=== PATIENT | male | born 1930 | race Caucasian/White ===

== ENCOUNTER 2018-01-16 13:00 | Inpatient (IN) ==
[2018-01-16 16:02] VITALS: BMI 22.1
[2018-01-16] MEDS ORDERED: BISACODYL 10 MG SUPPOSITORY RECTALLY PRN (16:22)
[2018-01-16] MEDS ORDERED: ACETAMINOPHEN 325 MG TABLET PO PRN (16:22)
[2018-01-16] MEDS ORDERED: SENNOSIDES 8.6 MG TABLET PO PRN (16:24)
[2018-01-16] MEDS ORDERED: Oxycodone *IR* 5 MG TABLET PO PRN (16:24)
[2018-01-16] MEDS ORDERED: WARFARIN - PHARMACY CONSULT MC ONE ×2 (16:27→17:00)
--- NOTE | 2018-01-16 16:47 | IRU History & Physical Report ---
HPI IRU Date: Date: 01/16/18 Time: 1643 Chief complaint: My legs don't work right HPI: Mr. Melendez is a very pleasant 87-year-old gentleman from [place], [place]. Referring physician is Gisela Choe MD. His primary care doctor is Panfilo Villa MD in [place]. The patient has a very extensive cardiac history having undergone his first pacemaker placement in 2008. He had an implantable defibrillator placed then in 2010 with replacement in 2016. In 2016 he did not have the lead replaced and the Guzman started to wear out. Therefore it was recommended that he undergo lead placement as well as new generator which was performed in [place] by Dr. Choe on 01/10/2018. Between his defibrillator placement in 2016 and the current placement, he underwent AV leonardo ablation. (Previous cardiac history indicates myocardial infarction and stent placement number of years ago.) He had stopped his Coumadin in preparation for the current lead placement and AICD generator placement on January 10. Procedure went fine according to the patient. He then went home to live with his daughter in [place]. A couple days later he developed extreme weakness and lethargy. According to his family he was not confused. In addition there was no report of any weakness in the left side although his left leg was painful. He was quite sleepy. Etiology of his sleepiness was not clear. He developed recurrent nausea and vomiting. He presented to the emergency department at [facility] on 01/13/2018 for evaluation of the weakness and nausea and vomiting. At that time his BUN was elevated at 101 and his creatinine was 2.3. I am not certain what his baseline creatinine is although on an emergency room visit in November 2017 his creatinine was 2.6. He was transferred back to [facility] for admission. He was noted to have a significant hematoma involving the left chest area surrounding the defibrillator. This was noted prior to his visit to the emergency room at this time. His blood pressure was low at around 97 systolic by EMS and was 107 systolic in the emergency department on 01/13/2018. He was quite weak. There is report of transient left facial droop noted on records from [place]. However the family is not aware of that. His left arm has been in a sling so it was difficult to determine if the left arm was weak or not. Patient and family denied any particular weakness in the left leg but did report pain in the leg. He also had reported some burning on urination. His white count was initially 14,000 in the emergency department here on 2017. Blood sugar was 303 and BUN was 101. There was a large hematoma with ecchymoses surrounding the pacemaker site. He also had a 1 cm area of superficial skin blistering just distal and lateral to that area. It is noted that the patient been on warfarin prior to the pacemaker generator change but had stopped taking it on 01/08/2018 prior to the operation. It has since been restarted. His normal dose is 2 mg, 2 mg, 3 mg on a three-day rotating cycle. The patient was reportedly confused at the time of admission to [facility] (family denies this). His heart rate was irregular and sodium was 133. CT head was negative for acute infarct. Chest x-ray showed some bibasilar opacities and cardiomegaly. Initially there was suspicion of TIA but subsequently encephalopathy and left-sided weakness resolved. His anticoagulation and a statin was restarted. He did note some degree of swallowing difficulty and PT, OT and speech therapy were consulted. He was able to be started on a regular diet with nectar thickened liquids. Studies done in [place] at this time include the chest x-ray on 01/14/2018 showed patchy bibasilar opacities likely representing atelectasis. CT head of demonstrate no acute findings. Ultrasound of carotids on 01/14/2018 demonstrated mild to moderate atherosclerosis without hemodynamically significant stenosis. A swallow function study was done on 01/15/2018 with aspiration occurring with thin preparations of barium. Oropharyngeal dysphagia was diagnosed and nectar thickened liquids were recommended. Prior to this he was relatively independent living on [place] acres in the [place] area. He did his own mowing. He did ambulate with a front-wheeled walker or single-point cane. Recently he had not been driving because of recent cataract surgery. He was otherwise independent with ADLs and all of his self-care. His daughter assisted with driving and assisted with grocery shopping. At the present time the patient plans to move into [facility] independent living in [place] following dismissal from acute inpatient rehabilitation. The new home has one level and no steps to enter. He lives alone with his having in 1980. He does have history of diabetes mellitus with elevated blood sugars as identified above. He checks his blood sugars at home twice weekly. He does not use insulin and is on Januvia only. It is not certain if he has had hypoglycemic episodes or not. His last known A1c is 8.2% in January 2018. Current level of functioning indicates that he is modified independent for eating but requires supervision for grooming. He would continues to require moderate assistance for bathing and upper body dressing but maximum assistance for lower body dressing. He requires maximum assistance for bed/chair/ wheelchair transfers and toilet transfers. He is currently not able to ambulate significantly. He does wear a sling in the left arm and the arm is to remain in the sling even while in bed. The patient has requested no heroic actions be undertaken in the event of an arrest. This was confirmed with the patient and family present today. The following medical conditions are noted and require active monitoring and/or management: 1. 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 He underwent diuresis in November and has continued to have evidence of severe weakness. His proximal muscles appear to be weaker than his distal muscles in his lower extremity. He reports that his legs are weak and do not do what he wants them to do. 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 2. Congestive heart failure. He reportedly has systolic heart failure but I do not have a current ejection fraction. There is verbal report of ejection fraction of 10%. 3. Diabetes mellitus type 2, not recently controlled. He is on oral agents only. 4. Chronic kidney disease stage IV. Recent creatinines have ranged from 2.3-2.6. 5. Dysphagia: Oropharyngeal and location based on swallow study in [place]. He is now on nectar thickened liquids but regular consistency food. 6. Coronary artery disease, status post stent placement. He has had 2 stents placed previously and previous myocardial infarction. 7. Atrial fibrillation. He is status post AV leonardo ablation. 8. Hypertension: His blood pressure had been low prior to this. The following therapies will be needed: 1. Physical therapy: for transfers and ambulation and stairs. 2. Occupational therapy: for ADL's and transfers. 3. Speech therapy: dysphagia 3. Medical management: for the above conditions. 4. 24 hour Rehabilitation Nursing to monitor and address the following: Blood sugars, blood pressures, neurologic status and cardiac status in view of his atrial fibrillation and congestive heart failure. 5. Dietitian: To monitor and insure adequate intake. [facility] Patient Stated Medical History Cataracts Yes Cardiac Arrhythmia Yes: A-FIB Congestive Heart Failure Yes: 10% EF Hypertension Yes Myocardial Infarction Yes Diabetes Mellitus Type 2 Yes Constipation No Gastroesophageal Reflux Yes Disease Hx Incontinence No Hx Renal Disease Yes: STAGE IV Clotting Problems Yes: ON COUMADIN Medical History Updates: 1. Systolic heart failure with reported ejection fraction 10%. 2. Benign essential hypertension. 3. Atherosclerotic heart disease status post myocardial infarction. 4. Diabetes mellitus type 2 not on senior care insulin, with vascular complications of heart disease. 5. GERD. 6. Chronic kidney disease stage IV. 7. Coagulopathy secondary to use of Coumadin. 8. Gout. 9. Prostate cancer Surgical History: 1. Cardiac stent placement after myocardial infarction early 2005. 2. Permanent pacemaker placement 2008, revision and AICD placement 2010, revision and new AICD placement 2016, new AICD and lead placement 2017. 3. AV ablation 2016. 4. Bilateral cataract procedure. 5. Cervical and lumbar spine surgery. 6. Appendectomy. 7. Tonsillectomy. 8. Umbilical hernia repair. 9. Right total shoulder replacement. 10. Left total knee replacement Family History: Patient's father of "heart failure" age 55. Mother of scarlet fever age 31. - Social History Smoking status: Former smoker Packs per day: 2 (started smoking at age 10 and stopped at age 57 with most recent usage 2 packs daily) Packs-years: 80 Substance use type: does not use Alcohol intake: former (occasional mixed drinks in the past. Last intake 2001) Alcohol intake frequency: does not drink Housing: house Household members: none Current occupational status: retired Current residence: Apartment/Private Home Social history: Patient's in 1980. He has lived alone in [facility]. 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 He is planning to move into an independent living apartment in [place] after dismissal from rehabilitation. Review of Systems - Constitutional Constitutional: Present: weight gain (had gained quite a few pounds of weight in November and then was diuresed. Has again gained some. He believes his dry weight is 147 pounds. Current weight is about 158 pounds.). Absent: anorexia, chills, fatigue, fever(s), headache(s), lethargy, malaise, night sweats, weakness - EENMT Eyes: Absent: blurry vision, change in vision, diplopia Mouth/Throat: Absent: changes in swallowing, painful swallowing, change in taste , bleeding gums, change in voice - Cardiovascular Cardiovascular: Present: dyspnea on exertion (shortness of breath is improved since most recent AICD placement). Absent: chest pain, palpitations, syncope, orthopnea, edema, cyanosis, heart murmur Rhythm: Present: abnormal rhythm Vascular: Absent: intermittent claudication, pedal edema, unilateral swelling - Respiratory Respiratory: Present: dyspnea, dyspnea on exertion. Absent: cough, hemoptysis, wheezing, pain on inspiration, chest congestion, excessive phlegm production - Gastrointestinal Gastrointestinal: Present: dyspepsia, dysphagia (oropharyngeal dysphagia). Absent: abdominal pain, change in bowel habits, constipation, diarrhea, early satiety, hematochezia, melena, nausea, vomiting - Musculoskeletal Musculoskeletal: Present: muscle weakness (patient reports bilateral lower extremity weakness). Absent: abnormal gait, arthralgias, back pain, joint swelling, limited range of motion - Integumentary/Breasts Integumentary: Absent: alopecia, erythema, lesions, pruritus, rash, jaundice - Neurological Neurological: Present: weakness. Absent: abnormal gait, abnormal movements, abnormal speech, confusion, convulsions, dizziness, focal weakness, frequent falls, headache(s), loss of vision, memory loss, numbness, paresthesias, tremor( s) - Psychiatric Psychiatric: Absent: abnormal sleep pattern, anxiety, depression - Endocrine Endocrine: Absent: cold intolerance, flushing, heat intolerance, palpitations - Hematologic/Lymphatic Hematologic/Lymphatic: Absent: easy bleeding, easy bruising, lymphadenopathy - Allergic/Immunologic Allergic/Immunologic: Absent: urticaria Medications Home Medications Medication Instructions Recorded Confirmed Type Amiodarone [Pacerone] 200 mg PO BID 11/19/17 01/16/18 History Bumetanide [Bumetanide] 2 mg PO BID 11/19/17 01/16/18 History Omeprazole [Prilosec] 20 mg PO DAILY 11/19/17 01/16/18 History Potassium Chloride [MICRO-K 10 mEq 20 meq PO BIDWM 11/19/17 01/16/18 History Capsule] Sitagliptin [Januvia] 50 mg PO DAILY 11/19/17 01/16/18 History Sennosides 8.6 mg PO BID PRN 01/13/18 01/16/18 History Warfarin [Coumadin] 2 mg PO . DIRECTED 01/13/18 01/16/18 History Warfarin [Coumadin] 3 mg PO Q3D 01/13/18 01/16/18 History Acetaminophen 650 mg PO Q4HR PRN 01/16/18 01/16/18 History Atorvastatin [Lipitor] 1 tab PO HS 01/16/18 01/16/18 History Bisacodyl Supp [Dulcolax] 10 mg RECTALLY Q6HR PRN 01/16/18 01/16/18 History Calcium Carb/Vit D3/Minerals 1 each PO DAILY 01/16/18 01/16/18 History [Calcium 600+D Plus Minerals Tb] Carvedilol [Coreg] 1 tab PO BIDWM 01/16/18 01/16/18 History CephALEXin [Keflex 500 mg] 500 mg PO Q6HR 01/16/18 01/16/18 History Docusate Sodium [Colace] 1 cap PO DAILY 01/16/18 01/16/18 History Doxepin [Sinequan] 10 mg PO HS 01/16/18 01/16/18 History Febuxostat [Uloric] 40 mg PO DAILY 01/16/18 01/16/18 History Folic Acid 0.8 mg PO DAILY 01/16/18 01/16/18 History Ondansetron [Zofran Odt] 1 tab PO Q4HR PRN 01/16/18 01/16/18 History Oxycodone HCl 5 mg PO Q6HR PRN 01/16/18 01/16/18 History PredniSONE [Deltasone 10 mg] 10 mg PO WB 01/16/18 01/16/18 History Allergies Allergy/AdvReac Type Severity Reaction Status Date / Time finasteride Allergy Intermediate Rash Verified 01/13/18 15:42 hydromorphone [From Dilaudid] AdvReac Severe combative Verified 01/13/18 15:52 nitrofurantoin AdvReac Severe Nausea and Verified 01/13/18 15:42 [From Macrobid] Vomiting Results IRU - Labs Labs: Have reviewed results from [facility] as well as what data we have here from [place]. Exam Vital Signs: Temperature 97.9 F 01/16/18 15:41 Pulse Rate 60 01/16/18 15:41 Respiratory Rate 18 01/16/18 15:41 Blood Pressure 133/71 01/16/18 15:41 Pulse Oximetry 97 01/16/18 15:41 Height/Weight/BMI: Height 1.8 m Weight 72.1 kg Body Mass Index 22.1 - Constitutional Present: no acute distress, well nourished, well developed, average body habitus , cooperative - Routine HEENT Exam Head: Present: normocephalic, atraumatic. Absent: cushingoid faces, abrasion, laceration, hematoma Eye: Present: EOMI, PERRL (pupils are small bilaterally.). Absent: conjunctival icterus, scleral injection, periorbital swelling, nystagmus ENT: Present: mucous membranes moist, oropharynx clear. Absent: dentition normal (patient has upper and lower partial plates) Comments: Bilateral arcus senilis - Routine Neck Exam Present: supple, full ROM, trachea midline. Absent: lymphadenopathy, thyromegaly, tenderness, swelling - Routine Chest/Breast/Axilla Exam Chest wall: Present: pacemaker. Absent: tenderness Axillae: Absent: lymphadenopathy, mass Comments: Patient has a very large but soft hematoma overlying the left chest pacemaker/ defibrillator. No active infection, no warmth and minimal tenderness noted. - Routine Respiratory Exam Present: decreased breath sounds, CTA bilaterally. Absent: accessory muscle use , prolonged expiratory phase, rales, respiratory distress, rhonchi, stridor, wheezes, crackles, distant breath sounds - Routine Cardiovascular Exam Present: S1, S2, murmur, irregularly irregular. Absent: gallop, S3, S4, click, irregular rhythm - Routine Abdominal Exam Present: soft, normoactive bowel sounds, non distended, non tender. Absent: rebound, guarding, firm, rigid, organomegaly, mass, hernia, wound - Routine Extremities Exam Present: no edema, non tender, normal capillary refill. Absent: cyanosis, clubbing, pulses intact Comments: Bilateral chronic venous stasis changes noted in the lower extremities - Routine Back/Spine/Pelvis Exam Back/Spine: Present: kyphosis. Absent: full ROM, scoliosis - Routine Skin Exam Present: intact, dry, warm, ecchymosis. Absent: cyanosis, erythema, pallor, mottling, petechiae, urticaria, lesions, jaundice Comments: Large hematoma left chest as described above - Routine Neurological Exam Present: alert, oriented X3, CN II-XII intact, motor deficit (patient appears to have proximal muscle weakness in his lower extremities worse than distal weakness.), moving all extremities, normal speech - Routine Psychiatric Exam Present: normal affect, normal thought process, cooperative, good insight, good judgment. Absent: depressed, anxious Sepsis Assessment - Evaluation Severe Sepsis: none seen IRU A/P (1) Myopathy Current visit: Yes Status: Acute The patient requires maximum assistance for transfers. He has evidence of proximal muscle weakness. He is severely reduced ejection fraction reportedly at 10%. The patient has evidence of CHF related myopathy. He will require a multidisciplinary approach for his recovery. (2) Debility Current visit: Yes Status: Acute (3) Atrial fibrillation Qualifiers: Atrial fibrillation type: permanent Qualified Code(s): I48.2 - Chronic atrial fibrillation Current visit: Yes Status: Acute He is status post AV leonardo ablation and has a permanent pacemaker in place. He is on warfarin. His INR will be managed by the pharmacy. (4) Systolic heart failure Qualifiers: Heart failure chronicity: acute on chronic Qualified Code(s): I50.23 - Acute on chronic systolic (congestive) heart failure Current visit: Yes Status: Acute His weight is up but 158 pounds compared to his "dry weight" reportedly at 147 pounds according to the family. He is on Bumex twice daily. He has cardiomegaly. We will continue the diuresis. (5) Benign essential hypertension Current visit: Yes Status: Chronic (6) Diabetes mellitus type II, uncontrolled Qualifiers: Diabetes mellitus intermediate project manager insulin use: without intermediate project manager use Diabetes mellitus complication status: with circulatory complication Diabetes mellitus complication detail: with other circulatory complications Qualified Code(s): E11.59 - Type 2 diabetes mellitus with other circulatory complications; E11.65 - Type 2 diabetes mellitus with hyperglycemia Current visit: Yes Status: Chronic Patient's A1c is elevated at over 8%. He checks his sugars twice weekly. He has had circulatory complications in terms of vascular disease with his atherosclerotic heart disease. Efforts will be undertaken to safely control his blood sugars. (7) Arteriosclerotic heart disease (ASHD) Current visit: Yes Status: Chronic DVT Prophylaxis: SCD's, Coumadin GI Prophylaxis: Omeprazole Resuscitation Status: Do Not Resuscitate - Course Hospital Course: Ulysses Peoples MD: - Interventions to Obtain Goals Goals Progress/Modifications: This medically complex patient has had a recent decline in his functional status. This is likely related to his underlying severe congestive heart failure with resultant CHF myopathy. The patient has diabetes mellitus, atrial fibrillation on warfarin, a large hematoma involving the left chest wall, recent AICD placement as well as recent hypotension. He requires a multidisciplinary approach to his recovery.
--- NOTE | 2018-01-16 17:10 | Pharmacy Consult ---
Pharmacy Consult-Warfarin - Laboratory Information 01/16/18 16:45 INR 1.08 - Consult Information Target INR for afib is 2-3. Warfarin 3mg po is ordered for tonight. Will continue to monitor. Thank you.
--- NOTE | 2018-01-16 17:25 | IRU 24Hr Post Admit Eval ---
24 Hr Post Admission Physical - Relevant Changes Relevant Changes: Yes (after assessment on acute inpatient rehabilitation it appears as though his lower extremity weakness is likely related to a CHF related myopathy rather than a generalized debility.) Reviewed: I have reviewed the patient's information and concur with the finding and results of the pre-admission screen. Certification: I certify the patient for rehabilitation. - Patient Condition (1) Myopathy Status: Acute Code(s): G72.9 - Myopathy, unspecified Classification: Present on IRF Admission, IRF Tx That Should Address Diagnosis, Diagnosis Requiring Medical Follow Up (2) Debility Status: Acute Code(s): R53.81 - Other malaise Classification: Present on IRF Admission, IRF Tx That Should Address Diagnosis (3) Atrial fibrillation Status: Acute Qualifiers: Atrial fibrillation type: permanent Qualified Code(s): I48.2 - Chronic atrial fibrillation Code(s): I48.91 - Unspecified atrial fibrillation Classification: Present on IRF Admission, IRF Tx That Should Address Diagnosis, Diagnosis Requiring Medical Follow Up (4) Systolic heart failure Status: Acute Qualifiers: Heart failure chronicity: acute on chronic Qualified Code(s): I50.23 - Acute on chronic systolic (congestive) heart failure Code(s): I50.20 - Unspecified systolic (congestive) heart failure Classification: Present on IRF Admission, IRF Tx That Should Address Diagnosis, Diagnosis Requiring Medical Follow Up (5) Benign essential hypertension Status: Chronic Code(s): I10 - Essential (primary) hypertension Classification: Present on IRF Admission, IRF Tx That Should Address Diagnosis, Diagnosis Requiring Medical Follow Up (6) Diabetes mellitus type II, uncontrolled Status: Chronic Qualifiers: Diabetes mellitus terminal worker insulin use: without terminal worker use Diabetes mellitus complication status: with circulatory complication Diabetes mellitus complication detail: with other circulatory complications Qualified Code(s): E11.59 - Type 2 diabetes mellitus with other circulatory complications; E11.65 - Type 2 diabetes mellitus with hyperglycemia Code(s): E11.65 - Type 2 diabetes mellitus with hyperglycemia Classification: Present on IRF Admission, IRF Tx That Should Address Diagnosis, Diagnosis Requiring Medical Follow Up (7) Arteriosclerotic heart disease (ASHD) Status: Chronic Code(s): I25.10 - Atherosclerotic heart disease of [place] coronary artery without angina pectoris Classification: Present on IRF Admission, IRF Tx That Should Address Diagnosis, Diagnosis Requiring Medical Follow Up - Prior Functional Status Lives With: Alone Residence Type: Apartment/Private Home Assitive Devices: Front Wheeled Walker Prior Functional Status: Indep. at home or school, Depend. w/ IADL - Current Functional Status Current Level of Function: Current level of functioning indicates that he is modified independent for eating but requires supervision for grooming. He would continues to require moderate assistance for bathing and upper body dressing but maximum assistance for lower body dressing. He requires maximum assistance for bed/chair/ wheelchair transfers and toilet transfers. He is currently not able to ambulate significantly. He does wear a sling in the left arm and the arm is to remain in the sling even while in bed. Failed Alternative Therapy: Arrived from Acute Care Patient Requirements: The patient requires oversight by rehabilitation physician to manage their rehabilitation treatment plan and multidisciplinary approach to care that can only be provided in an IRF and requires a multidisciplinary approach to care, provided by professional PTs, OTs, STs, dieticians, RTs, rehabilitation nurses and is not available in lesser levels of care. Limitations Req: Mobility Impairment, ADL Impairment Therapy: The patient is to receive therapy at least 5 days a week. Plan of Care Comment: 1. Speech therapy for dysphagia/swallowing 30 minutes daily 5 days weekly. 2. Physical therapy: 75 minutes daily 5 days weekly. 3. Occupational therapy: 75 minutes daily 5 days weekly ROM Deficit: Left Upper Extremity - Complications/Comorbidities Impact on Functional Outcomes: The patient severe debilitation and myopathy as well as his reduced ejection fraction will negatively impact his functional outcome Barriers to Discharge: Weakness, Endurance, Medical Limitation - Plan to Avoid Complications Plan to Avoid Complications: The patient cannot receive this care in a lesser intensive setting such as Residential or Outpatient Therapy due to the patient requiring the following : This medically complex patient requires 24 hour rehabilitation nursing monitoring of his cardiac status due to his severely reduced ejection fraction. It also requires close monitoring of his blood sugars and blood pressure as well as evidence for bleeding with regard to his hematoma on the chest wall and use of Coumadin. He has dysphagia and requires speech therapy as well as physical therapy and occupational therapy. After assessment with the patient in the unit, it appears as though his primary functional deficit is secondary to a CHF-related myopathy rather than a generalized debility.
[2018-01-16] MEDS ORDERED: WARFARIN 3 MG TABLET PO ONE (17:30)
[2018-01-16] MEDS: CARVEDILOL 6.25 MG TABLET PO SCH (17:42)
[2018-01-16] MEDS: ATORVASTATIN 10 MG TABLET PO SCH (20:39)
[2018-01-16] MEDS: DOXEPIN 10 MG CAPSULE PO SCH (20:40)
[2018-01-16] MEDS: AMIODARONE 200 MG TABLET PO SCH (20:41)
[2018-01-16] MEDS: INSULIN GLARGINE 100unit/ml INJECTION SQ SCH (21:23)
[2018-01-17] MEDS: OMEPRAZOLE 20 MG CAPSULE PO SCH (06:44)
--- NOTE | 2018-01-17 07:56 | Pharmacy Consult ---
Pharmacy Consult-Warfarin - Laboratory Information 01/16/18 01/17/18 01/17/18 16:45 05:04 05:04 Hgb 10.7 L Hct 33.6 L INR 1.08 1.08 - Consult Information We will give warfarin 5mg po today at noon. [facility] INR 2-3.
[2018-01-17] MEDS: SITAGLIPTIN 100 MG TABLET PO SCH (09:09)
[2018-01-17] MEDS: BUMETANIDE 1 MG TABLET PO SCH ×2 (09:09→13:59)
[2018-01-17] MEDS: CALCIUM 600 + VIT D 400 TABLET PO SCH (09:10)
[2018-01-17] MEDS: CARVEDILOL 6.25 MG TABLET PO SCH ×2 (09:10→17:24)
[2018-01-17] MEDS: AMIODARONE 200 MG TABLET PO SCH ×2 (09:10→20:35)
[2018-01-17] MEDS: PredniSONE 10 MG TABLET PO SCH (09:10)
[2018-01-17] MEDS: FEBUXOSTAT 40 MG TABLET PO SCH (09:11)
[2018-01-17] MEDS: DOCUSATE SODIUM 100 MG CAPSULE PO SCH (09:11)
[2018-01-17] MEDS: FOLIC ACID 1 MG TABLET PO SCH (09:11)
--- NOTE | 2018-01-17 10:55 | Consult Note ---
Consult Information - Data of Consult Consult date: 01/16/18 Requesting Physician: Ulysses Peoples MD Primary Care Provider: Panfilo Villa MD - Consult Narrative Reason for consult: medical management History of present illness: Mr. Angel is a pleasant 87-year-old male seen in consultation from Dr. Peoples for medical management. He has a history of: Systolic heart failure with an ejection fraction 10%, hypertension; Atherosclerotic heart disease status post myocardial infarction; Diabetes mellitus type 2; GERD; CKD stage IV; A-fib on Coumadin, Gout, and prostate cancer. He underwent pacemaker battery change and lead replacement on 01/10/18. He was off his Coumadin prior to this procedure, as directed. He went to live with his daughter in [place] rather than going back to [place] (and in fact, had made arrangements to live at [facility] in [place] because of a fall 2 weeks ago) . A couple days following this procedure he became weak, unable to stand, and began vomiting. He was having symptoms concerning for stroke including possible left facial droop (per [facility] records) and left arm weakness. At [facility], he was found to have a very large hematoma at the pacemaker site, and was transferred to [facility]. CT head was negative. Chest x-ray showed bibasilar opacities. Other studies done at [facility] include carotid ultrasound on 01/14/2018 demonstrated mild to moderate atherosclerosis without hemodynamically significant stenosis; a swallow function study was done on 01/15 with aspiration occurring with thin preparations of barium. Oropharyngeal dysphagia was diagnosed and nectar thickened liquids were recommended. His neurologic symptoms resolved. He was seen in his room following morning therapy, and feels tired but is in good spirits. He is pleased with his progress already, and family report that he is already walking much sooner than they expected. Just 3 days earlier, he required a full lift to get him out of bed. He has significant swelling/ hematoma to the pacemaker site with a large amount of ecchymosis that extends down his left side and into his back. He also has bruising from his fall about 2 weeks ago, and this is primarily to his hands and right arm. He reports carpet burn to his right hip from scooting around on the floor. He denies chest pain or shortness of breath. He is to have palpitations before he got his pacemaker. No fever, chills, or URI symptoms. He denies syncope, lightheadedness or dizziness. He denies abdominal pain, nausea, vomiting or diarrhea. He tends to get constipated one is in the hospital. At home, he takes Ex-Lax every night. He reports some dysphagia and it feels like food gets caught in his esophagus. His daughter adds that he also has heartburn at times. He has had a diffuse itchy rash for the last 5-6 months and has received steroid shots for this. Has women's studies lecturer believes that the rash is from renal failure. The steroid shot. Unfortunately has caused some elevations in his blood sugar. He denies current leg swelling, though was about 20 pounds fluid overloaded a couple months ago. He denies any problems with urination. No headaches or recent visual changes. Past Medical History Medical History Updates: 1. Systolic heart failure with reported ejection fraction 10%. 2. Benign essential hypertension. 3. Atherosclerotic heart disease status post myocardial infarction. 4. A-fib. 5. Diabetes mellitus type 2 not on continuous churn buttermaker insulin, with vascular complications of heart disease. 6. GERD. 7. Chronic kidney disease stage IV. 8. Coagulopathy secondary to use of Coumadin. 9. Gout. 10. Prostate cancer Surgical History: 1. Cardiac stent placement after myocardial infarction early 2005. 2. Permanent pacemaker placement 2008, revision and AICD placement 2010, revision and new AICD placement 2016, new AICD and lead placement 2018. 3. AV ablation 2017. 4. Bilateral cataract procedure. 5. Cervical and lumbar spine surgery. 6. Appendectomy. 7. Tonsillectomy. 8. Umbilical hernia repair. 9. Right total shoulder replacement. 10. Left total knee replacement Family History Updates: His father of heart failure at age 55. Mother of scarlet fever at age 31, shortly after giving to Venancio's younger brother. His brother in his 30s of alcoholism. 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 Current residence: Apartment/Private Home Review of Systems All systems PM: 10-point ROS was reviewed, no additional remarkable complaints except - Hematologic/Lymphatic Hematologic/Lymphatic: Present: easy bleeding, easy bruising Medications Home Medications Medication Instructions Recorded Confirmed Type Amiodarone [Pacerone] 200 mg PO BID 11/19/17 01/16/18 History Bumetanide [Bumetanide] 2 mg PO BID 11/19/17 01/16/18 History Omeprazole [Prilosec] 20 mg PO DAILY 11/19/17 01/16/18 History Potassium Chloride [MICRO-K 10 mEq 20 meq PO BIDWM 11/19/17 01/16/18 History Capsule] Sitagliptin [Januvia] 50 mg PO DAILY 11/19/17 01/16/18 History Sennosides 8.6 mg PO BID PRN 01/13/18 01/16/18 History Warfarin [Coumadin] 2 mg PO . DIRECTED 01/13/18 01/16/18 History Warfarin [Coumadin] 3 mg PO Q3D 01/13/18 01/16/18 History Acetaminophen 650 mg PO Q4HR PRN 01/16/18 01/16/18 History Atorvastatin [Lipitor] 1 tab PO HS 01/16/18 01/16/18 History Bisacodyl Supp [Dulcolax] 10 mg RECTALLY Q6HR PRN 01/16/18 01/16/18 History Calcium Carb/Vit D3/Minerals 1 each PO DAILY 01/16/18 01/16/18 History [Calcium 600+D Plus Minerals Tb] Carvedilol [Coreg] 1 tab PO BIDWM 01/16/18 01/16/18 History CephALEXin [Keflex 500 mg] 500 mg PO Q6HR 01/16/18 01/16/18 History Docusate Sodium [Colace] 1 cap PO DAILY 01/16/18 01/16/18 History Doxepin [Sinequan] 10 mg PO HS 01/16/18 01/16/18 History Febuxostat [Uloric] 40 mg PO DAILY 01/16/18 01/16/18 History Folic Acid 0.8 mg PO DAILY 01/16/18 01/16/18 History Ondansetron [Zofran Odt] 1 tab PO Q4HR PRN 01/16/18 01/16/18 History Oxycodone HCl 5 mg PO Q6HR PRN 01/16/18 01/16/18 History PredniSONE [Deltasone 10 mg] 10 mg PO WB 01/16/18 01/16/18 History Allergies Allergy/AdvReac Type Severity Reaction Status Date / Time finasteride Allergy Intermediate Rash Verified 01/13/18 15:42 hydromorphone [From Dilaudid] AdvReac Severe combative Verified 01/13/18 15:52 nitrofurantoin AdvReac Severe Nausea and Verified 01/13/18 15:42 [From Macrobid] Vomiting Exam Vital Signs: Temperature 97.5 F 01/17/18 08:00 Pulse Rate 64 01/17/18 08:00 Respiratory Rate 18 01/17/18 08:00 Blood Pressure 109/53 01/17/18 08:00 Pulse Oximetry 90 01/17/18 08:00 Height/Weight/BMI: Height 1.8 m Weight 72.1 kg Body Mass Index 22.1 - Constitutional Present: no acute distress, well nourished, well developed, thin - Routine HEENT Exam Head: Present: normocephalic Eye: Present: PERRL. Absent: conjunctival icterus, scleral injection ENT: Present: mucous membranes moist - Routine Neck Exam Present: supple - Routine Chest/Breast/Axilla Exam Chest wall: Present: pacemaker (large hematoma to left anterior chest with significant ecchymosis around this site and below) - Routine Respiratory Exam Present: CTA bilaterally - Routine Cardiovascular Exam Present: S1, S2, murmur, irregular rhythm - Routine Abdominal Exam Present: soft, normoactive bowel sounds, non distended, non tender - Routine Extremities Exam Present: no edema, pulses intact - Routine Back/Spine/Pelvis Exam Comments: muscular atrophy noted to legs and hands - Routine Skin Exam Present: intact, dry, warm, ecchymosis (both hands) - Routine Neurological Exam Present: alert, oriented X3, CN II-XII intact, moving all extremities, vision grossly intact, hearing grossly intact, normal speech. Absent: motor deficit, facial asymmetry - Routine Psychiatric Exam Present: normal affect, normal thought process, cooperative Results - Labs CBC & Chem 7: 01/17/18 05:04 01/17/18 05:04 Assessment and Plan Assessment and Plan: Assessment Hematoma at pacemaker site Myopathy/weakness Systolic heart failure with reported ejection fraction 10% Benign essential hypertension Atherosclerotic heart disease status post myocardial infarction A-fib Diabetes mellitus type 2; A1c 8.3% GERD Chronic kidney disease stage IV - creatinine of late has been 2.3-2.6 Coagulopathy secondary to use of Coumadin Gout Prostate cancer Anemia Constipation Plan Agree with PT/OT/ST per attending. Pacemaker precautions: Wear sling while sleeping, no lifting over 10 pounds with the left upper upper extremity, no pushing and no pulling Coumadin per pharmacy - INR subtherapeutic at 1.08 HTN/CHF - Coreg, Bumex. BP under good control. Measure I&O, daily weights. DM2 - monitor BG, januvia. Will add SSI. CKD - Creatinine at baseline. High risk for CHF/renal failure. Records from [facility] and [facility] were reviewed. DNR status. DVT Prophylaxis: Coumadin GI Prophylaxis: other (Prilosec) Resuscitation Status: Do Not Resuscitate - Physician Narrative Physician: César Beckett MD Narrative: Date: 01/17/18 Time: 1999 Have independently interviewed and examined pt. Chart reviewed. Case discussed with my PROJECT ENGINEERING DIRECTOR. Above care plan developed with my supervision; agree with above. Admitted to IRU for restorative therapy following pacemaker placement and subsequent hematoma development. Reports right shoulder pain decreasing-hoping will be able to remove sling soon. Breathing well. No chest pain. Eating well. Bowels very slow--was struggling this am but no success. Passing flatus, but starting to feel more full and bloated to ab. Did have good rehab session this morning-got tired out for afternoon. Encourage as he was able to do much more for himself than in the weeks preceding. Lungs: decreased, no crackles or wheeze. CV: regular Skin: large hematoma around pacemaker site. AB: soft nt/nd +BS EXT: no edema MSE: awake alert Plan: Agree with admission of patient to IRU to maximize functional status. Encourage participation with therapy. Continue chronic medications. Work on bowel function-encourage patient on use of Dulcolax suppositories to help. Will add prn Miralax. Will need to monitor IRN due to Coumadin use. Will intermittently monitor other lab due to medication use and his chronic medical diseases. Medically stable for IRU floor activities. Hospital Course Summary Disclaimer: The visit summary below is not to be considered part of the above Progress Note. Hospital Course: 01/17 Agree with PT/OT/ST per attending. Pacemaker precautions: Wear sling while sleeping, no lifting over 10 pounds with the left upper upper extremity, no pushing and no pulling Coumadin per pharmacy - INR subtherapeutic at 1.08 HTN/CHF - Coreg, Bumex. BP under good control. Measure I&O, daily weights. DM2 - monitor BG, januvia. Will add SSI. CKD - Creatinine at baseline. High risk for CHF/renal failure.
--- NOTE | 2018-01-17 11:48 | IRU Progress Note ---
- Subjective/Serverity of Illness Date: 01/17/18 Mr. Angel was assessed in his room as well as in the hallway today in inpatient rehabilitation. He is tolerating therapy reasonably well. He does have a lot of lower extremity weakness. He does demonstrate some degree of imbalance. He is able to walk with a hemiwalker with minimum assistance. However sit to stand transfers continued to require maximum assistance, consistent with his myopathy. He denies any chest pain and denies shortness of breath. He does report an itchy area in the right lateral thigh area. A dressing is present in this area and we will inspected after that is removed. He does have occasional cough and sputum he states. Appetite is fair. He is getting settled into the rehabilitation milieu. As noted he requires maximum assistance for sit to stand transfers. Update on medical issues as follows: 1. 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 I believe this is secondary to severe congestive heart failure. He is cooperative with therapy and we anticipate that he will be able to return to his independent living upon dismissal. 2. Congestive heart failure. Ejection fraction reportedly 10% based on records. I do not have a copy of his echocardiogram however. He reports some dyspnea with activity but things seem to be fairly stable at present. 3. Diabetes mellitus type 2, not recently controlled. He is on oral agents only. He required some supplemental insulin last night. We will continue to monitor carefully. 4. Chronic kidney disease stage IV. Current creatinine stable at 2.6. I assume this is close to his baseline level. 5. Dysphagia: Oropharyngeal: He continues to be on a modified diet and he will work with speech therapy in this regard. 6. Coronary artery disease, status post stent placement. He has had 2 stents placed previously and previous myocardial infarction. He denies any chest pain. 7. Atrial fibrillation. He is status post AV leonardo ablation. His INR is subtherapeutic. I discussed with pharmacy yesterday. Because of his large hematoma in the left anterior chest area, I'm reluctant to give him full dose Lovenox. We will continue adjusting his warfarin in this regard. 8. Hypertension: Blood pressures continue to be a bit on the low side as anticipated with his poor ejection fraction. Exam Vital Signs: Temperature 97.5 F 01/17/18 08:00 Pulse Rate 64 01/17/18 08:00 Respiratory Rate 18 01/17/18 08:00 Blood Pressure 109/53 01/17/18 08:00 Pulse Oximetry 90 01/17/18 08:00 Height/Weight/BMI: Height 1.8 m Weight 72.1 kg Body Mass Index 22.1 - Constitutional Present: mild distress, well nourished, well developed, thin, cachectic, cooperative - Routine HEENT Exam Head: Present: normocephalic Eye: Present: EOMI ENT: Present: mucous membranes moist, oropharynx clear - Routine Respiratory Exam Present: dyspnea, decreased breath sounds, CTA bilaterally. Absent: wheezes - Routine Cardiovascular Exam Present: RRR, S1, S2, murmur - Routine Abdominal Exam Present: soft, normoactive bowel sounds, non distended. Absent: tenderness - Routine Extremities Exam Present: no edema, normal capillary refill - Routine Skin Exam Present: dry, warm, ecchymosis - Routine Neurological Exam Present: alert, oriented X3, CN II-XII intact, motor deficit (lower extremity weakness again identified.) - Routine Psychiatric Exam Present: normal affect, cooperative, good insight, good judgment Results IRU - Labs Labs: Have reviewed laboratory results as well as other providers notes. IRU A/P (1) Myopathy Current visit: Yes Status: Acute He is cooperative with therapy but continues to display substantial lower extremity weakness particularly with regards to sit to stand transfers consistent with proximal muscle weakness. (2) Debility Current visit: Yes Status: Acute Patient displays generalized debility likely related to his underlying congestive heart failure and reduced exercise tolerance. (3) Atrial fibrillation Qualifiers: Atrial fibrillation type: permanent Qualified Code(s): I48.2 - Chronic atrial fibrillation Current visit: Yes Status: Acute Patient remains on anticoagulation with subcutaneous therapeutic INR. Because of his hematoma in his chest chosen not to utilize Lovenox at this time in full dose. We will gradually increase the warfarin. 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 He has now been started on a sliding insulin scale as well. His blood sugars remain elevated at over 200. (7) Arteriosclerotic heart disease (ASHD) Current visit: Yes Status: Chronic DVT Prophylaxis: SCD's, Coumadin Resuscitation Status: Do Not Resuscitate - Course Hospital Course: Ulysses Peoples MD: 01/17/18 14:09 Patient is cooperative with therapy. He is settling into the rehabilitation milieu. His blood sugars are a bit elevated. Continues to demonstrate substantial myopathy from his CHF. - Interventions to Obtain Goals PT Treatment Plan: Balance/Proprioception, Functional Activities, Gait Training , Patient/Family Education, Therapeutic Exercise OT Treatment Plan: ADL (Basic Care), Balance Training, IADL, Pt./Family Education, Ther. Exercise for ADL Goals Progress/Modifications: Venancio is quite cooperative with therapy. However he has easy fatigability. Has significant difficulty with regard to sit to stand transfers due to his myopathy. Continues to have chronic dyspnea. Remains on diuretics. His INR remained subtherapeutic but I have chosen not to give him full dose Lovenox in view of the large hematoma on his anterior chest. We will continue warfarin and monitor INR per pharmacy. He denies any chest pain.Please note that the patient' s individual plan of care was developed and documented today, requiring review of therapy notes, medical conditions and anticipated functional recovery. This required additional medical decision making with regard to interaction of the patient's medical issues with the anticipated functional recovery. Please see separate document
[2018-01-17] MEDS ORDERED: WARFARIN 5 MG TABLET PO SCH (12:00)
[2018-01-17] MEDS: INSULIN ASPART 100unit/ml INJECTION SQ PRN ×2 (14:10→20:33)
--- NOTE | 2018-01-17 14:13 | IRU Plan of Care ---
[facility] Overall Plan of Care - Date Date: 01/17/18 - Patient Impairments (1) Myopathy Code(s): G72.9 - Myopathy, unspecified Status: Acute Classification: Present on IRF Admission, IRF Tx That Should Address Diagnosis, Diagnosis Requiring Medical Follow Up (2) Debility Code(s): R53.81 - Other malaise Status: Acute Classification: Present on IRF Admission, IRF Tx That Should Address Diagnosis (3) Atrial fibrillation Qualifiers: Atrial fibrillation type: permanent Qualified Code(s): I48.2 - Chronic atrial fibrillation Code(s): I48.91 - Unspecified atrial fibrillation Status: Acute Classification: Present on IRF Admission, IRF Tx That Should Address Diagnosis, Diagnosis Requiring Medical Follow Up (4) Systolic heart failure Qualifiers: Heart failure chronicity: acute on chronic Qualified Code(s): I50.23 - Acute on chronic systolic (congestive) heart failure Code(s): I50.20 - Unspecified systolic (congestive) heart failure Status: Acute Classification: Present on IRF Admission, IRF Tx That Should Address Diagnosis, Diagnosis Requiring Medical Follow Up (5) Benign essential hypertension Code(s): I10 - Essential (primary) hypertension Status: Chronic Classification: Present on IRF Admission, IRF Tx That Should Address Diagnosis, Diagnosis Requiring Medical Follow Up (6) Diabetes mellitus type II, uncontrolled Qualifiers: Diabetes mellitus fpc insulin use: without exterminator use Diabetes mellitus complication status: with circulatory complication Diabetes mellitus complication detail: with other circulatory complications Qualified Code(s): E11.59 - Type 2 diabetes mellitus with other circulatory complications; E11.65 - Type 2 diabetes mellitus with hyperglycemia Code(s): E11.65 - Type 2 diabetes mellitus with hyperglycemia Status: Chronic Classification: Present on IRF Admission, IRF Tx That Should Address Diagnosis, Diagnosis Requiring Medical Follow Up (7) Arteriosclerotic heart disease (ASHD) Code(s): I25.10 - Atherosclerotic heart disease of sun'aq coronary artery without angina pectoris Status: Chronic Classification: Present on IRF Admission, IRF Tx That Should Address Diagnosis, Diagnosis Requiring Medical Follow Up - Relevant Changes Relevant Changes: No Reviewed: I have reviewed the patient's information and concur with the finding and results of the pre-admission screen. Certification: I certify the patient for rehabilitation. - Medical Prognosis Medical Prognosis: Good Vital Signs: Last Vital Signs Temp 97.5 F 05/09/18 08:00 Pulse 64 01/17/18 08:00 Resp 18 01/17/18 08:00 BP 109/53 01/17/18 08:00 Pulse Ox 90 01/17/18 08:00 - Anticipated Interventions Anticipated Interventions: The patient requires inpatient IRF care for PT, OT, and/or ST for residuals remaining from CHF myopathy resulting in muscular weakness and strength deficits. Strength Deficits: Right Lower Extremity, Left Lower Extremity - Current Functional Status Failed Alternative Therapy: Arrived from Acute Care Patient Requires: The patient requires oversight by rehabilitation physician to manage their rehabilitation treatment plan and multidisciplinary approach to care that can only be provided in an IRF and requires a multidisciplinary approach to care, provided by professional PTs, OTs, STs, rehabilitation nurses, and may require STs, dieticians, and RTS. This is not available in lesser levels of care. Speech-Language Pathology Minutes: 60 Physical Therapy Minutes: 60 Occupational Therapy Minutes: 60 Therapy: The patient is to receive therapy at least [address] Treatment Plan: Swallow Retraining/Exercises, Swallow Precautions, Modified Diet, Memory Retraining ST Treatment Plan Duration: One Week ST Treatment Plan Frequency: Five Times Per Week - Anticipated LOS/Outcomes Anticipated Functional Outcome: It is anticipated the patient will be able to move into his independent living apartment with modified independent level of functioning. He will continue to require assistance for IADLs but will be able to perform his ADLs at modified independent level or better. Expected functional improvements include: -- Modified independant to independant ambulation with or without assistive device -- Modified independant to independant ADL's with or without assistive device -- Return to pre-morbid level of mobility -- Maximize level of mobility and ADL's to decrease burden on any caregiver involved with this patient's care Anticipated Length of Stay (days): 14 Anticipated DC Destination: Home, Self Care, Home Health Service Home Safety Plan: The patient will be provided with the development of a Home Safety Plan for return to a home or home-like environment and and to ensure safety post discharge. - Plan to Avoid Complications Barriers to Attaining Goals: Weakness, Balance, Endurance, Medical Limitation ( CHF) Plan to Avoid Complications: The patient cannot receive this care in a lesser intensive setting such as Senior Living or Outpatient Therapy due to the patient requiring the following : This patient is medically complex and has severe congestive heart failure requiring close monitoring of electrolytes, blood pressure, pulse as well as monitoring of his blood sugars. He requires a multidisciplinary approach with speech therapy regarding his swallowing and cognition, physical therapy and occupational therapy with medical supervision and 24 rehabilitation nursing.
[2018-01-17] MEDS ORDERED: WARFARIN - PHARMACY CONSULT MC ONE (15:30)
[2018-01-17] MEDS ORDERED: POLYETHYL GLYCOL 3350 17gm PACKET PO PRN (20:01)
[2018-01-17] MEDS: INSULIN GLARGINE 100unit/ml INJECTION SQ SCH (20:34)
[2018-01-17] MEDS: DOXEPIN 10 MG CAPSULE PO SCH (20:35)
[2018-01-17] MEDS: ATORVASTATIN 10 MG TABLET PO SCH (20:35)
[2018-01-18] MEDS: OMEPRAZOLE 20 MG CAPSULE PO SCH (06:32)
[2018-01-18] MEDS: INSULIN ASPART 100unit/ml INJECTION SQ PRN ×4 (07:25→20:12)
--- NOTE | 2018-01-18 07:39 | Pharmacy Consult ---
Pharmacy Consult-Warfarin - Laboratory Information 01/16/18 01/17/18 01/17/18 16:45 05:04 05:04 Hgb 10.7 L Hct 33.6 L INR 1.08 1.08 01/18/18 04:23 Hgb Hct INR 1.15 - Consult Information INR slow to increase so we will give a slightly higher dose than yesterday ( 7.5mg po at noon). Thanks
[2018-01-18] MEDS: DOCUSATE SODIUM 100 MG CAPSULE PO SCH (10:06)
[2018-01-18] MEDS: BUMETANIDE 1 MG TABLET PO SCH ×2 (10:07→14:54)
[2018-01-18] MEDS: CARVEDILOL 6.25 MG TABLET PO SCH ×2 (10:07→17:18)
[2018-01-18] MEDS: FEBUXOSTAT 40 MG TABLET PO SCH (10:08)
[2018-01-18] MEDS: PredniSONE 10 MG TABLET PO SCH (10:08)
[2018-01-18] MEDS: CALCIUM 600 + VIT D 400 TABLET PO SCH (10:08)
[2018-01-18] MEDS: AMIODARONE 200 MG TABLET PO SCH ×2 (10:08→20:14)
[2018-01-18] MEDS: FOLIC ACID 1 MG TABLET PO SCH (10:09)
[2018-01-18] MEDS: SITAGLIPTIN 100 MG TABLET PO SCH (10:09)
[2018-01-18] MEDS ORDERED: WARFARIN 7.5 MG TABLET PO SCH (12:00)
[2018-01-18] MEDS ORDERED: FALL RISK - PHARMACY CONSULT MC ONE (14:21)
[2018-01-18] MEDS: INSULIN GLARGINE 100unit/ml INJECTION SQ SCH (20:12)
[2018-01-18] MEDS: DOXEPIN 10 MG CAPSULE PO SCH (20:14)
[2018-01-18] MEDS: SENNOSIDES 25 MG PO PRN (20:14)
[2018-01-18] MEDS: ATORVASTATIN 10 MG TABLET PO SCH (20:14)
[2018-01-19] MEDS: INSULIN ASPART 100unit/ml INJECTION SQ PRN ×3 (06:06→15:07)
[2018-01-19] MEDS: OMEPRAZOLE 20 MG CAPSULE PO SCH (06:07)
[2018-01-19] MEDS: SITAGLIPTIN 100 MG TABLET PO SCH (08:28)
[2018-01-19] MEDS: BUMETANIDE 1 MG TABLET PO SCH ×2 (08:29→15:08)
[2018-01-19] MEDS: FOLIC ACID 1 MG TABLET PO SCH (08:29)
[2018-01-19] MEDS: FEBUXOSTAT 40 MG TABLET PO SCH (08:29)
[2018-01-19] MEDS: AMIODARONE 200 MG TABLET PO SCH ×2 (08:29→21:32)
[2018-01-19] MEDS: CARVEDILOL 6.25 MG TABLET PO SCH ×2 (08:29→18:14)
[2018-01-19] MEDS: CALCIUM 600 + VIT D 400 TABLET PO SCH (08:29)
[2018-01-19] MEDS: PredniSONE 10 MG TABLET PO SCH (08:30)
[2018-01-19] MEDS: DOCUSATE SODIUM 100 MG CAPSULE PO SCH (08:40)
[2018-01-19] MEDS ORDERED: WARFARIN 7.5 MG TABLET PO SCH (12:00)
--- NOTE | 2018-01-19 12:42 | IRU Progress Note ---
- Subjective/Serverity of Illness Date: 01/19/18 Mr. Angel continue to reports weak legs although states that his legs are getting stronger. He was able to stand from a toilet riser with only minimum assistance. However from the wheelchair he requires maximum assistance. He complains that he has weak legs as before. He was able to ambulate a bit further today going some (estimated) 30-40 feet. There was a significant improvement over previous levels. He is very cooperative with therapy. He has an area on his right initial tuberosity which is noted. The dressing was removed. There is a minimal area of redness at present. I could not inspect this too well as he was standing but we will review that after he is back in bed. He reports that his energy level remains poor. He reports that his dyspnea is pre-much back at baseline. His weight is down several kilograms. He denies any chest pain. His appetite is reasonably good. His warfarin is being adjusted by pharmacy. INR is improved at 1.41. Hematoma on anterior chest wall looks about the same. Exam Vital Signs: Temperature 97.5 F 01/19/18 08:00 Pulse Rate 61 01/19/18 08:00 Respiratory Rate 18 01/19/18 08:00 Blood Pressure 126/58 01/19/18 08:00 Pulse Oximetry 97 01/19/18 08:00 Height/Weight/BMI: Height 1.8 m Weight 69.6 kg Body Mass Index 22.1 - Constitutional Present: no acute distress, well nourished, well developed, cooperative - Routine HEENT Exam Eye: Present: EOMI ENT: Present: mucous membranes moist, oropharynx clear - Routine Chest/Breast/Axilla Exam Comments: Large hematoma overlying the defibrillator/pacemaker is unchanged. - Routine Respiratory Exam Present: dyspnea, decreased breath sounds, CTA bilaterally. Absent: wheezes - Routine Cardiovascular Exam Present: S1, S2, murmur, irregularly irregular - Routine Abdominal Exam Present: soft, normoactive bowel sounds, non distended. Absent: tenderness - Routine Extremities Exam Present: no edema, normal capillary refill - Routine Skin Exam Present: dry, warm - Routine Neurological Exam Present: alert, oriented X3, CN II-XII intact, motor deficit (continues to demonstrate bilateral lower extremity weakness as evidenced by requiring maximum assistance for sit to stand transfers.) - Routine Psychiatric Exam Present: normal affect Results IRU - Labs Labs: Have reviewed labs and other providers notes. IRU A/P (1) Myopathy Current visit: Yes Status: Acute He is demonstrating functional improvement with regard to transfers, ambulation as well as swallowing ability. Continues to demonstrate substantial proximal muscle weakness in the lower extremities consistent with heart failure related myopathy. (2) Debility Current visit: Yes Status: Acute (3) Atrial fibrillation Qualifiers: Atrial fibrillation type: permanent Qualified Code(s): I48.2 - Chronic atrial fibrillation Current visit: Yes Status: Acute Patient's INR is slowly improving. (4) Systolic heart failure Qualifiers: Heart failure chronicity: acute on chronic Qualified Code(s): I50.23 - Acute on chronic systolic (congestive) heart failure Current visit: Yes Status: Acute His weight is down. His lungs are clear with diminished breath sounds. He is tolerating therapy adequately. (5) Benign essential hypertension Current visit: Yes Status: Chronic (6) Diabetes mellitus type II, uncontrolled Qualifiers: Diabetes mellitus oil heaterman insulin use: without mcc use Diabetes mellitus complication status: with circulatory complication Diabetes mellitus complication detail: with other circulatory complications Qualified Code(s): E11.59 - Type 2 diabetes mellitus with other circulatory complications; E11.65 - Type 2 diabetes mellitus with hyperglycemia Current visit: Yes Status: Chronic (7) Arteriosclerotic heart disease (ASHD) Current visit: Yes Status: Chronic DVT Prophylaxis: Coumadin Resuscitation Status: Do Not Resuscitate - Course Hospital Course: Ulysses Peoples MD: 01/17/18 14:09 Patient is cooperative with therapy. He is settling into the rehabilitation milieu. His blood sugars are a bit elevated. Continues to demonstrate substantial myopathy from his CHF. 01/19/18 12:46 Patient tolerating therapy well. INR improved. He is making functional gains. - Interventions to Obtain Goals PT Treatment Plan: Balance/Proprioception, Functional Activities, Gait Training , Patient/Family Education, Therapeutic Exercise OT Treatment Plan: ADL (Basic Care), Balance Training, IADL, Pt./Family Education, Ther. Exercise for ADL
--- NOTE | 2018-01-19 12:47 | Pharmacy Consult ---
Pharmacy Consult-Warfarin - Laboratory Information 01/16/18 01/17/18 01/17/18 16:45 05:04 05:04 Hgb 10.7 L Hct 33.6 L INR 1.08 1.08 01/18/18 01/19/18 04:23 05:05 Hgb Hct INR 1.15 1.41 H - Consult Information COUMADIN CONSULT (Recurring): HW is an 87 yo male that was admitted to hospital for weakness. The patient has long history of cardiac issues including atrial fibrillation for which is currently on Warfarin 2 mg for two days and on the third day he takes 3 mg, then repeats the routine. The patient has diagnoses of myopathy, atrial fibrillation, systolic heart failure, DM type II (uncontrolled), and arteriosclerotic heart disease. Additionally he has CKD stage IV. Date INR Dose 01/16 1.08 3 mg 01/17 1.08 5 mg 01/18 1.15 7.5 mg 01/19 1.41 3.75 mg I am giving 3.76 mg p.o.o today to not overshoot the target range of 2.0-3.0 INR. The home is around 2-3 mg daily and the patient is currently taking Amiodarone 200 mg p.o. twice a day so I'm concerned about the INR going too high. Thanks for the Warfarin Dosing Protocol, Deondre Perez, Pharmacist.
[2018-01-19] MEDS ORDERED: INSULIN ASPART 100unit/ml INJECTION SQ ONE ×2 (20:42→20:56)
[2018-01-19] MEDS ORDERED: INSULIN GLARGINE 100unit/ml INJECTION SQ ONE (21:24)
[2018-01-19] MEDS: INSULIN GLARGINE 100unit/ml INJECTION SQ SCH (21:30)
[2018-01-19] MEDS: DOXEPIN 10 MG CAPSULE PO SCH (21:32)
[2018-01-19] MEDS: ATORVASTATIN 10 MG TABLET PO SCH (21:32)
[2018-01-19] MEDS: SENNOSIDES 25 MG PO PRN (21:41)
[2018-01-20] MEDS: OMEPRAZOLE 20 MG CAPSULE PO SCH ×2 (04:28→05:49)
[2018-01-20] MEDS: INSULIN ASPART 100unit/ml INJECTION SQ PRN ×4 (05:59→20:19)
[2018-01-20] MEDS: FOLIC ACID 1 MG TABLET PO SCH (08:05)
[2018-01-20] MEDS: SITAGLIPTIN 100 MG TABLET PO SCH (08:05)
[2018-01-20] MEDS: AMIODARONE 200 MG TABLET PO SCH ×2 (08:05→20:20)
[2018-01-20] MEDS: PredniSONE 10 MG TABLET PO SCH (08:05)
[2018-01-20] MEDS: BUMETANIDE 1 MG TABLET PO SCH ×2 (08:05→14:17)
[2018-01-20] MEDS: FEBUXOSTAT 40 MG TABLET PO SCH (08:05)
[2018-01-20] MEDS: CALCIUM 600 + VIT D 400 TABLET PO SCH (08:05)
[2018-01-20] MEDS: CARVEDILOL 6.25 MG TABLET PO SCH ×2 (08:06→17:20)
[2018-01-20] MEDS: DOCUSATE SODIUM 100 MG CAPSULE PO SCH (08:06)
--- NOTE | 2018-01-20 08:27 | Pharmacy Consult ---
Pharmacy Consult-Warfarin - Laboratory Information 01/16/18 01/17/18 01/17/18 16:45 05:04 05:04 Hgb 10.7 L Hct 33.6 L INR 1.08 1.08 01/18/18 01/19/18 01/20/18 04:23 05:05 05:01 Hgb Hct INR 1.15 1.41 H 1.73 H 01/20/18 05:01 Hgb 10.7 L Hct 33.5 L INR - Consult Information COUMADIN CONSULT (Recurring): 87 yr old male patient admitted for weakness His home med warfarin dose is 3 mg every 3 days and 2 mg on the other days. DATE INR DOSE GIVEN 01/16/18 1.08 3 MG 01/17/18 1.08 5 MG 01/18/18 1.15 7.5 MG 01/19/18 1.41 3.75 MG 01/20/18 1.73 4 MG will be given today Thank you. Ida Eaton, PharmD
[2018-01-20] MEDS ORDERED: WARFARIN 4 MG TABLET PO SCH (12:00)
[2018-01-20] MEDS: INSULIN GLARGINE 100unit/ml INJECTION SQ SCH (20:19)
[2018-01-20] MEDS: ATORVASTATIN 10 MG TABLET PO SCH (20:20)
[2018-01-20] MEDS: DOXEPIN 10 MG CAPSULE PO SCH (20:20)
[2018-01-20] MEDS: SENNOSIDES 25 MG PO PRN (20:23)
[2018-01-21] MEDS: OMEPRAZOLE 20 MG CAPSULE PO SCH ×2 (02:54→06:31)
[2018-01-21] MEDS: INSULIN ASPART 100unit/ml INJECTION SQ PRN ×3 (06:39→20:14)
--- NOTE | 2018-01-21 09:10 | Pharmacy Consult ---
Pharmacy Consult-Warfarin - Laboratory Information 01/16/18 01/17/18 01/17/18 16:45 05:04 05:04 Hgb 10.7 L Hct 33.6 L INR 1.08 1.08 01/18/18 01/19/18 01/20/18 04:23 05:05 05:01 Hgb Hct INR 1.15 1.41 H 1.73 H 01/20/18 01/21/18 05:01 05:11 Hgb 10.7 L Hct 33.5 L INR 2.13 H - Consult Information COUMADIN CONSULT (Recurring): 87 yr old male patient admitted for weakness His home med warfarin dose is 3 mg every 3 days and 2 mg on the other days. DATE INR DOSE GIVEN 01/16/18 1.08 3 MG 01/17/18 1.08 5 MG 01/18/18 1.15 7.5 MG 01/19/18 1.41 3.75 MG 01/20/18 1.73 4 MG 01/21/18 2.13 3 MG will give today. INR is now in therapeutic range after increasing 0.4 with the 4 mg dose. Thank you. Ida Eaton, PharmD
[2018-01-21] MEDS: FOLIC ACID 1 MG TABLET PO SCH (09:33)
[2018-01-21] MEDS: SITAGLIPTIN 100 MG TABLET PO SCH (09:33)
[2018-01-21] MEDS: FEBUXOSTAT 40 MG TABLET PO SCH (09:34)
[2018-01-21] MEDS: PredniSONE 10 MG TABLET PO SCH (09:34)
[2018-01-21] MEDS: DOCUSATE SODIUM 100 MG CAPSULE PO SCH (09:34)
[2018-01-21] MEDS: CALCIUM 600 + VIT D 400 TABLET PO SCH (09:34)
--- NOTE | 2018-01-21 09:41 | Progress Note ---
- Date 01/21/18 Subjective: Venancio was still in bed, but awake. He states that he feels overall fairly well. However, last night, felt wobbly and weaker and decided to eat supper in his room. He denies feeling short of breath. His chest wall hematoma is improving. He complains of a dry mouth. No nausea or vomiting. Objective Vital signs: Temperature 97.8 F 01/21/18 08:00 Pulse Rate 63 01/21/18 08:00 Respiratory Rate 18 01/21/18 08:00 Blood Pressure 111/55 01/21/18 08:00 Pulse Oximetry 98 01/21/18 08:00 Height/Weight/BMI: Height 1.8 m Weight 69.1 kg Body Mass Index 22.1 - Constitutional Present: no acute distress, well nourished, well developed - Routine HEENT Exam Head: Present: normocephalic Eye: Absent: conjunctival icterus, scleral injection ENT: Present: mucous membranes dry - Routine Respiratory Exam Present: CTA bilaterally Comments: Hematoma to pacemaker site is decreasing in size. There is still significant ecchymosis at this site and down his chest. - Routine Cardiovascular Exam Present: S1, S2, murmur, irregular rhythm - Routine Abdominal Exam Present: soft, normoactive bowel sounds, non distended, non tender - Routine Extremities Exam Present: no edema, pulses intact - Routine Skin Exam Present: intact, dry, warm Comments: skin tenting to forearms - Routine Neurological Exam Present: alert, oriented X3, CN II-XII intact, normal speech Results - Labs CBC & Chem 7: 01/20/18 05:01 01/21/18 05:11 Assessment and Plan Assessment and Plan: Assessment Hematoma at pacemaker site Myopathy/weakness Systolic heart failure with reported ejection fraction 10% Benign essential hypertension Atherosclerotic heart disease status post myocardial infarction A-fib Diabetes mellitus type 2; A1c 8.3% GERD Chronic kidney disease stage IV - creatinine of late has been 2.3-2.6 Coagulopathy secondary to use of Coumadin Gout Prostate cancer Anemia Constipation Plan BUN and creatinine are rising, currently at 119 and 3.1. He appears dry clinically. Will hold Bumex. Coreg was not given this morning because of low normal blood pressure. Give 1 L of IV fluids. Recheck BMP in a.m. Medications adjusted based on creatinine clearance: Decreased Januvia added 25 mg, decreased cephalexin to 250 mg every 8 hours. For Hyperglycemia, Sliding scale was increased to the medium corrective regimen. Lantus HS was increased to 7 units. Start NovoLog before meals at 3 units. Consider endocrine consultation. INR therapeutic at 2.13. DVT Prophylaxis: Coumadin Resuscitation Status: Do Not Resuscitate - Physician Narrative Narrative: Date: 01/21/18 Time: 0939 Hospital Course Summary Disclaimer: The visit summary below is not to be considered part of the above Progress Note. Hospital Course: 01/17 Agree with PT/OT/ST per attending. Pacemaker precautions: Wear sling while sleeping, no lifting over 10 pounds with the left upper upper extremity, no pushing and no pulling Coumadin per pharmacy - INR subtherapeutic at 1.08 HTN/CHF - Coreg, Bumex. BP under good control. Measure I&O, daily weights. DM2 - monitor BG, januvia. Will add SSI. CKD - Creatinine at baseline. High risk for CHF/renal failure. 01/21 BUN and creatinine are rising, currently at 119 and 3.1. He appears dry clinically. Will hold Bumex. Coreg was not given this morning because of low normal blood pressure. Give 1 L of IV fluids. Recheck BMP in a.m. Medications adjusted based on creatinine clearance: Decreased Januvia added 25 mg, decreased cephalexin to 250 mg every 8 hours. For Hyperglycemia, Sliding scale was increased to the medium corrective regimen. Lantus HS was increased to 7 units. Start NovoLog before meals at 3 units. Consider endocrine consultation. INR therapeutic at 2.13.
[2018-01-21] MEDS: CARVEDILOL 6.25 MG TABLET PO SCH ×2 (09:42→17:08)
[2018-01-21] MEDS: AMIODARONE 200 MG TABLET PO SCH ×2 (09:43→20:16)
[2018-01-21] MEDS: NS 1,000 ML IV SCH ×2 (10:38→21:58)
[2018-01-21] MEDS ORDERED: WARFARIN 3 MG TABLET PO SCH (12:00)
[2018-01-21] MEDS ORDERED: INSULIN ASPART 100unit/ml INJECTION SQ SCH (17:00)
[2018-01-21] MEDS: INSULIN GLARGINE 100unit/ml INJECTION SQ SCH (20:13)
[2018-01-21] MEDS: DOXEPIN 10 MG CAPSULE PO SCH (20:15)
[2018-01-21] MEDS: ATORVASTATIN 10 MG TABLET PO SCH (20:16)
[2018-01-22] MEDS: OMEPRAZOLE 20 MG CAPSULE PO SCH (06:19)
[2018-01-22] MEDS: INSULIN ASPART 100unit/ml INJECTION SQ PRN ×4 (06:20→21:19)
--- NOTE | 2018-01-22 07:53 | Pharmacy Consult ---
Pharmacy Consult-Warfarin - Laboratory Information 01/20/18 01/21/18 01/22/18 05:01 05:11 04:19 Hgb 10.7 L Hct 33.5 L INR 2.13 H 2.30 H - Consult Information COUMADIN CONSULT (Recurring): Day 7 87 yr old male patient admitted for weakness. His home med warfarin dose is 3 mg every 3 days and 2 mg on the other days. DATE INR Dose 01/16/18 1.08 3 mg 01/17/18 1.08 5 mg 01/18/18 1.15 7.5mg 01/19/18 1.41 3.75 mg 01/20/18 1.73 4 mg 01/21/18 2.13 3 mg 01/22/18 2.30 2 mg INR is now in therapeutic range at 2.30. The INR chidi 0.17 with a dose of 3 mg . I am going to give a dose of Warfarin 2 mg p.o. at noon today as the current home dosing. The Pharmacy will continue to monitor the INR and adjust the Warfarin accordingly. Thanks for the Warfarin Dosing Protocol, Deondre Perez , Pharmacist.
[2018-01-22] MEDS: FOLIC ACID 1 MG TABLET PO SCH (08:27)
[2018-01-22] MEDS: SITAGLIPTIN 100 MG TABLET PO SCH (08:27)
[2018-01-22] MEDS: PredniSONE 10 MG TABLET PO SCH (08:28)
[2018-01-22] MEDS: AMIODARONE 200 MG TABLET PO SCH ×2 (08:28→21:19)
[2018-01-22] MEDS: CARVEDILOL 6.25 MG TABLET PO SCH ×2 (08:28→17:23)
[2018-01-22] MEDS: CALCIUM 600 + VIT D 400 TABLET PO SCH (08:28)
[2018-01-22] MEDS: DOCUSATE SODIUM 100 MG CAPSULE PO SCH (08:28)
[2018-01-22] MEDS: FEBUXOSTAT 40 MG TABLET PO SCH (08:28)
[2018-01-22] MEDS: INSULIN ASPART 100unit/ml INJECTION SQ SCH ×3 (08:29→17:23)
--- NOTE | 2018-01-22 10:47 | IRU Progress Note ---
- Subjective/Serverity of Illness Date: 01/22/18 Mr. Angel was interviewed and examined in his room on inpatient rehabilitation with the therapist present. He is progressing with therapy. He denies any chest pain. He denies shortness of breath. He reports that his bowels are moving but his appetite is reasonably good. The area on the left anterior chest continues to be very prominent with a large hematoma. It is not worse than it was and there is no evidence of infection nor warmth. His hemoglobin remained stable at 10.7. He reports a red rash on his upper extremities. This is been present for at least 6 months. He is on prednisone in this regard. He has been previously evaluated and to my knowledge a specific diagnosis has not been reached. We will add some topical hydrocortisone lotion. Brief therapy update: Physical therapy his transfers are improving now to moderate assistance. He is able to ambulate about 33 feet with a hemiwalker at contact-guard assistance level. For occupational therapy he is bathing with contact-guard assistance. Upper body dressing is minimum assistance and lower body dressing is with standby assistance. He remains on a modified diet and is working with speech therapy for swallow retraining and memory retraining. Update on medical issues we are actively monitoring/managin. 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 Strength appears to be improving in the lower extremities. 2. Congestive heart failure. He does have easy fatigability. Lungs remain clear. Able to participate in therapy. 3. Diabetes mellitus type 2, not recently controlled. Sugars remain elevated. He is on long-acting insulin as well as short-acting and a sliding scale. 4. Chronic kidney disease stage IV. Creatinine was 2.6, then 3.0, then 3.1 and now down to 2.9. 5. Dysphagia: He is participating with speech therapy and remains on a modified diet. 6. Coronary artery disease, status post stent placement. He denies chest pains. 7. Atrial fibrillation. He is status post AV leonardo ablation. 8. Hypertension: Prior to admission he was having some low blood pressures. They 're remaining stable now at 110 systolic. Exam Vital Signs: Temperature 98.2 F 01/22/18 07:12 Pulse Rate 62 01/22/18 07:12 Respiratory Rate 16 01/21/18 19:45 Blood Pressure 110/59 01/22/18 07:12 Pulse Oximetry 93 01/22/18 07:12 Height/Weight/BMI: Height 1.8 m Weight 68.6 kg Body Mass Index 22.1 - Constitutional Present: no acute distress, well nourished, well developed, thin, cooperative - Routine HEENT Exam Head: Present: normocephalic Eye: Present: EOMI ENT: Present: mucous membranes moist, oropharynx clear - Routine Neck Exam Present: supple - Routine Chest/Breast/Axilla Exam Comments: Large hematoma remains at site of pacemaker/defibrillator placement. - Routine Respiratory Exam Present: decreased breath sounds, CTA bilaterally. Absent: wheezes - Routine Cardiovascular Exam Present: RRR, S1, S2. Absent: murmur - Routine Abdominal Exam Present: soft, normoactive bowel sounds, non distended. Absent: tenderness - Routine Extremities Exam Present: normal capillary refill - Routine Skin Exam Present: dry, warm, rash (fine red rash upper extremities predominantly.) - Routine Neurological Exam Present: alert, oriented X3, CN II-XII intact - Routine Psychiatric Exam Present: normal affect, normal thought process, cooperative, good insight, good judgment IRU A/P (1) Myopathy Current visit: Yes Status: Acute Proximal lower extremity weakness is improving but continues to be an issue. He is improving from a functional standpoint. (2) Debility Current visit: Yes Status: Acute Continues to have generalized debility. (3) Atrial fibrillation Qualifiers: Atrial fibrillation type: permanent Qualified Code(s): I48.2 - Chronic atrial fibrillation Current visit: Yes Status: Acute His INR is therapeutic at 2.30. He sounds as though he is in a regular rhythm likely secondary to the pacemaker. (4) Systolic heart failure Qualifiers: Heart failure chronicity: acute on chronic Qualified Code(s): I50.23 - Acute on chronic systolic (congestive) heart failure Current visit: Yes Status: Acute (5) Benign essential hypertension Current visit: Yes Status: Chronic Blood pressures are good at around 110 systolic. (6) Diabetes mellitus type II, uncontrolled Qualifiers: Diabetes mellitus terminal make up operator insulin use: without skilled nursing use Diabetes mellitus complication status: with circulatory complication Diabetes mellitus complication detail: with other circulatory complications Qualified Code(s): E11.59 - Type 2 diabetes mellitus with other circulatory complications; E11.65 - Type 2 diabetes mellitus with hyperglycemia Current visit: Yes Status: Chronic Remains on insulin with sliding scale. Sugars remain a bit elevated. (7) Arteriosclerotic heart disease (ASHD) Current visit: Yes Status: Chronic (8) Dermatitis Current visit: Yes Status: Chronic Has a nonspecific red rash involving primarily the upper extremities which is pruritic. This apparently has been evaluated in the past and has been present for a number of months. He is on prednisone in this regard. We will add topical hydrocortisone lotion. DVT Prophylaxis: Coumadin Resuscitation Status: Do Not Resuscitate - Course Hospital Course: Ulysses Peoples MD: 01/17/18 14:09 Patient is cooperative with therapy. He is settling into the rehabilitation milieu. His blood sugars are a bit elevated. Continues to demonstrate substantial myopathy from his CHF. 01/19/18 12:46 Patient tolerating therapy well. INR improved. He is making functional gains. 01/22/18 10:52 He is making functional gains. Tolerates therapy adequately despite his severely reduced ejection fraction. Myopathic weakness continues but is improved. INR is therapeutic at 2.30. Red rash on upper extremities, chronic. We'll add hydrocortisone lotion. - Interventions to Obtain Goals PT Treatment Plan: Balance/Proprioception, Functional Activities, Gait Training , Patient/Family Education, Therapeutic Exercise OT Treatment Plan: ADL (Basic Care), Balance Training, IADL, Pt./Family Education, Ther. Exercise for ADL Goals Progress/Modifications: Patient is progressing with regard to functional activities. He is able to transfer better. Continues to have evidence of myopathic lower extremity weakness. Medically, while chronically ill, he appears to be stable at present. He is tolerating therapy adequately. Does claim a red rash on upper extremities which is been present chronically. He is on prednisone in this regard. We will add topical hydrocortisone lotion.
[2018-01-22] MEDS ORDERED: WARFARIN 2 MG TABLET PO SCH (12:00)
--- NOTE | 2018-01-22 13:14 | IRU Team Meeting ---
IRU Team Meeting - Nursing Bladder Assistive Devices Utilized:: Urinal Bladder Management Level of Assist: Stand By Assist/Supervision Bladder Frequency of Accidents: No accidents Bowel Assistive Devices Utilized:: Medication Bowel Management Level of Assist: Modified Independent Bowel Frequency of Accidents: No accidents Vital Signs: Vital Signs - 24 hr 01/21/18 16:00 01/21/18 19:45 01/22/18 07:12 Temperature 98.1 F 98.0 F 98.2 F Pulse Rate 59 L 60 62 Respiratory Rate 20 16 Blood Pressure 111/49 117/50 110/59 Pulse Oximetry 93 95 93 Current Medications: Acetaminophen (Tylenol) 650 mg PO Q4HR PRN PRN Reason: Pain Last Admin: 01/19/18 18:14 Dose: 650 mg Amiodarone HCl (Pacerone) 200 mg PO BID [facility] Last Admin: 01/22/18 08:28 Dose: 200 mg Atorvastatin Calcium (Lipitor) 10 mg PO HS [facility] Last Admin: 01/21/18 20:16 Dose: 10 mg Bisacodyl (Dulcolax) 10 mg RECTALLY Q6HR PRN PRN Reason: Constipation Bumetanide (Bumex 1 Mg Tab) 2 mg PO 0800,1400 [facility] Last Admin: 01/20/18 14:17 Dose: 2 mg Calcium/Vitamin D (Caltrate + D) 1 tab PO DAILY [facility] Last Admin: 01/22/18 08:28 Dose: 1 tab Carvedilol (Coreg) 6.25 mg PO BIDWM [facility] Last Admin: 01/22/18 08:28 Dose: 6.25 mg Cephalexin HCl (Keflex 250 Mg) 250 mg PO Q8HR [facility] Stop: 01/23/18 08:00 Last Admin: 01/22/18 08:28 Dose: 250 mg Docusate Sodium (Colace) 100 mg PO DAILY [facility] Last Admin: 01/22/18 08:28 Dose: 100 mg Doxepin HCl (Sinequan) 10 mg PO HS [facility] Last Admin: 01/21/18 20:15 Dose: 10 mg Febuxostat (Uloric) 40 mg PO DAILY [facility] Last Admin: 01/22/18 08:28 Dose: 40 mg Folic Acid (Folate) 1 mg PO DAILY [facility] Last Admin: 01/22/18 08:27 Dose: 1 mg Hydrocortisone (Hydrocortisone 2.5% Lotion) 1 applic TOP BID [facility] Insulin Aspart (Novolog) 2 - 8 unit SQ SS PRN; Protocol PRN Reason: Hyperglycemia Last Admin: 01/22/18 10:42 Dose: 3 unit Insulin Aspart (Novolog) 3 unit SQ WM [facility] Last Admin: 01/22/18 12:17 Dose: 3 unit Insulin Glargine (Lantus) 7 unit SQ HS [facility] Last Admin: 01/21/18 20:13 Dose: 7 unit Omeprazole (Prilosec) 20 mg PO ACB [facility] Last Admin: 01/22/18 06:19 Dose: 20 mg Oxycodone HCl (Roxicodone *Ir*) 5 mg PO Q6HR PRN PRN Reason: Pain Polyethylene Glycol (Miralax) 17 gm PO DAILY PRN PRN Reason: Constipation Potassium Chloride (Micro-K 10 Meq Capsule) 20 meq PO BIDWM [facility] Last Admin: 01/20/18 08:04 Dose: 20 meq Prednisone (Deltasone 10 Mg) 10 mg PO WB [facility] Last Admin: 01/22/18 08:28 Dose: 10 mg Senna (Ex-Lax Maximum Strength) 25 mg PO HS PRN PRN Reason: Constipation Last Admin: 01/20/18 20:23 Dose: 25 mg Sitagliptin Phosphate (Januvia) 25 mg PO DAILY [facility] Last Admin: 01/22/18 08:27 Dose: 25 mg Warfarin Sodium (Coumadin Protocol) 0 MC NOTE ZACK Warfarin Sodium (Coumadin) 2 mg PO NOON [facility] Stop: 01/22/18 23:59 Last Admin: 01/22/18 12:17 Dose: 2 mg Current Medical Issues: Atrial fib, CHF with EF 10%, chest hematoma, DM II not controlled, CKD Comments: I certify that I personally led the interdisciplinary team meeting and agree with comments, barriers and goals indicated. Team meeting was held in the patient's room with the patient and the following family members present: patient alone Mr. Angel is significantly improving with regard to functional activities. His appetite is reasonable. He has been on oral agents only in the past with regard to his diabetes and is currently on both long-acting and short-acting insulin. He is willing to give himself shots at home although I'm not certain he is able to read the markings on an insulin syringe etc. We'll ask director of finance to see him for instruction in insulin administration as well as blood glucose monitoring. Otherwise his blood pressures are doing well. His INR is stable at 2.30. Renal function slightly improved. - Speech Therapy Remains on regular solids and thickened liquids. Working on swallow safety and retraining. Plans to do modified barium swallow in a couple of days. - Physical Therapy Bed, Chair, Wheelchair Transfer Assist: Stand By Assist/Supervision Ambulation Ability: Stand By Assist/Supervision, Household Exception Ambulation Distance: 91 Wheelchair Propulsion Ability: Stand By Assist/Supervision Wheelchair Propulsion Distance: 70 Stair Climbing Ability: Stand By Assist/Supervision Number of Steps Climbed: 6 Car Transfer Ability: Stand By Assist/Supervision Comments: Patient has transitioned from hemiwalker to front-wheeled walker due to relaxation of weightbearing in left upper extremity. He does struggle with endurance and balance. Oral his functional mobility is improving. - Occupational Therapy Eating Ability: Stand By Assist/Supervision Grooming Ability: Modified Independent Bathing Ability: Contact Guard Assistance Upper Body Dressing Ability: Minimal Assistance Lower Body Dressing Ability: Stand By Assist/Supervision Tub Transfer Assist: Patient Refuses Toileting Assist: Contact Guard Assistance Toilet Transfer Assist: Stand By Assist/Supervision Comments: He is using assistive devices. He continues to progress toward goals. Easy fatigability again identified. - Goals Physical Therapy Goals: 01/22/18: 1.) Modified [place] with ambulation going 150 feet. 2.) Modified [place] with transfers. 3.) Timed up and go balance test at 30 seconds Occupational Therapy Goals: OT goals 01/22/18: 1.) Lower body dressing with modified independence. 2.) Upper body dressing independently. 3.) Toileting with modified independence. 4.) Light meal preparation with modified independence. Speech Therapy Goals: Jail Goal: Pt will maintain nutrition and hydration of the least restrictive diet while demonstrating no s/s of aspiration for 3 consecutive trials. Short Term Goal: Pt will consume a regular consistency with nectar thick liquids without outward signs of aspiration at bedside in 85% of trials. Pt will consume a regular consistency with thin liquids without outward signs of aspiration at bedside in 85% of trials. Pt will demonstrate all the following exercises with mild verbal cues. o Effortful Swallow- 50 reps x 2 30 min sessions. o Lingual resistance exercises- 5 sets x 5 reps (5 sec hold) - Barriers to Discharge Barriers to Attaining Goals: Weakness (progressive resistive therapeutic exercises are offered.), Balance (proprioceptive and balance training offered.) , Endurance (encouragement at taking fewer rest breaks as well as increased length of activity time.), Medical Limitation (pacemaker precautions- compensation techniques and repetition are offered.) - Care Plan Anticipated Length of Stay (days): 5 Anticipated DC Destination: Home, Self Care, Home Health Service I have led this team conference and agree with the plan.
[2018-01-22] MEDS: INSULIN GLARGINE 100unit/ml INJECTION SQ SCH (21:18)
[2018-01-22] MEDS: HYDROCORTISONE 2.5% LOTION 59ml TOP SCH (21:18)
[2018-01-22] MEDS: SENNOSIDES 25 MG PO PRN (21:19)
[2018-01-22] MEDS: ATORVASTATIN 10 MG TABLET PO SCH (21:19)
[2018-01-22] MEDS: DOXEPIN 10 MG CAPSULE PO SCH (21:19)
[2018-01-23] MEDS: OMEPRAZOLE 20 MG CAPSULE PO SCH (06:20)
[2018-01-23] MEDS: SITAGLIPTIN 100 MG TABLET PO SCH (08:11)
[2018-01-23] MEDS: PredniSONE 10 MG TABLET PO SCH (08:11)
[2018-01-23] MEDS: CARVEDILOL 6.25 MG TABLET PO SCH ×2 (08:11→17:32)
[2018-01-23] MEDS: FEBUXOSTAT 40 MG TABLET PO SCH (08:13)
[2018-01-23] MEDS: DOCUSATE SODIUM 100 MG CAPSULE PO SCH (08:13)
[2018-01-23] MEDS: AMIODARONE 200 MG TABLET PO SCH ×2 (08:13→20:36)
[2018-01-23] MEDS: CALCIUM 600 + VIT D 400 TABLET PO SCH (08:13)
[2018-01-23] MEDS: FOLIC ACID 1 MG TABLET PO SCH (08:13)
[2018-01-23] MEDS: HYDROCORTISONE 2.5% LOTION 59ml TOP SCH ×2 (08:14→20:36)
[2018-01-23] MEDS: INSULIN ASPART 100unit/ml INJECTION SQ SCH ×3 (08:19→17:33)
--- NOTE | 2018-01-23 09:18 | Pharmacy Consult ---
Pharmacy Consult-Warfarin - Laboratory Information 01/16/18 01/17/18 01/17/18 16:45 05:04 05:04 Hgb 10.7 L Hct 33.6 L INR 1.08 1.08 01/18/18 01/19/18 01/20/18 04:23 05:05 05:01 Hgb Hct INR 1.15 1.41 H 1.73 H 01/20/18 01/21/18 01/22/18 05:01 05:11 04:19 Hgb 10.7 L Hct 33.5 L INR 2.13 H 2.30 H 01/23/18 04:43 Hgb Hct INR 2.11 H - Consult Information COUMADIN CONSULT (Recurring): Day 8 87 yr old male patient with history of a. fib and chronic anticoagulation. His home warfarin dose is 3 mg every 3 days and 2 mg on the other days. DATE INR Dose 01/16/18 1.08 3 mg 01/17/18 1.08 5 mg 01/18/18 1.15 7.5mg 01/19/18 1.41 3.75 mg 01/20/18 1.73 4 mg 01/21/18 2.13 3 mg 01/22/18 2.30 2 mg 01/23/18 2.11 plan: 3 mg INR is in therapeutic range. Will give a dose of Warfarin 3 mg p.o. at noon today. The Pharmacy will continue to monitor the INR and adjust the Warfarin accordingly. Thank you, Rosina Montilla [facility]
--- NOTE | 2018-01-23 10:39 | IRU Progress Note ---
- Subjective/Serverity of Illness Date: 01/23/18 Venancio is interviewed and examined in his room on the inpatient rehabilitation. He is demonstrating markedly improved strength in the lower extremities. He is able to transfer sit to stand with modified independent level only. His legs are certainly much stronger he states and this is borne out objectively as well (improved sit to stand to mod I). He reports he does have some excess fatigue if he pushes himself too far. Does not really describe overt shortness of breath. Denies chest pains. Denies lightheadedness. He reports his bowels are moving adequately. We added on hydrocortisone 2.5% lotion yesterday for his arm dermatitis. I am unable to really see any rash at this time and he reports the itching is much improved. We again discussed his diabetes. He is willing to learn how to give insulin. CDE has been consulted in this regard. Uncertain if he is going to be able to see the barber on the insulin syringes etc. but we will see how that goes. He may well do better with an insulin pen. Exam Vital Signs: Temperature 97.7 F 01/23/18 07:28 Pulse Rate 60 01/23/18 07:28 Respiratory Rate 16 01/23/18 07:28 Blood Pressure 115/65 01/23/18 07:28 Pulse Oximetry 98 01/23/18 07:28 Height/Weight/BMI: Height 1.8 m Weight 68.6 kg Body Mass Index 22.1 - Constitutional Present: no acute distress, well nourished, well developed, cooperative - Routine HEENT Exam Head: Present: normocephalic Eye: Present: EOMI ENT: Present: mucous membranes moist, oropharynx clear - Routine Chest/Breast/Axilla Exam Comments: Left anterior chest wall hematoma slightly regressing. No infection. Non-tender and non-warm. - Routine Respiratory Exam Present: decreased breath sounds, CTA bilaterally. Absent: wheezes - Routine Cardiovascular Exam Present: RRR, S1, S2. Absent: murmur - Routine Abdominal Exam Present: soft, normoactive bowel sounds, non distended. Absent: tenderness - Routine Extremities Exam Present: no edema, normal capillary refill - Routine Skin Exam Present: dry, warm, ecchymosis (left chest wall) - Routine Neurological Exam Present: alert, oriented X3, CN II-XII intact - Routine Psychiatric Exam Present: normal affect, cooperative, good insight, good judgment Results IRU - Labs Labs: Sugars remain a bit elevated until this morning for some there 140. Also reviewed creatinine which is improved at 2.5. BUN improved as well. INR remains therapeutic at 2.11, managed by pharmacy. IRU A/P (1) Myopathy Current visit: Yes Status: Acute Patient demonstrates markedly improved proximal muscle strength as evidenced by improved sit to stand transfers. He is cooperative with therapy and making functional gains. (2) Debility Current visit: Yes Status: Acute (3) Atrial fibrillation Qualifiers: Atrial fibrillation type: permanent Qualified Code(s): I48.2 - Chronic atrial fibrillation Current visit: Yes Status: Acute Continues to sound as though he is in a regular rhythm likely secondary to the pacemaker. INR is therapeutic at 2.11. (4) Systolic heart failure Qualifiers: Heart failure chronicity: acute on chronic Qualified Code(s): I50.23 - Acute on chronic systolic (congestive) heart failure Current visit: Yes Status: Acute Does complain of some excess fatigability if he pushes himself too far. Urged him to take things a bit easy and not get to that point. He denies actual overt dyspnea but this may be what he is describing. He denies any chest pains. Based on his markedly reduced ejection fraction, he would be at risk for decompensation if he pushes things too far. (5) Benign essential hypertension Current visit: Yes Status: Chronic (6) Diabetes mellitus type II, uncontrolled Qualifiers: Diabetes mellitus intermodal customer service insulin use: without intermodal customer service use Diabetes mellitus complication status: with circulatory complication Diabetes mellitus complication detail: with other circulatory complications Qualified Code(s): E11.59 - Type 2 diabetes mellitus with other circulatory complications; E11.65 - Type 2 diabetes mellitus with hyperglycemia Current visit: Yes Status: Chronic Blood sugars have remained a bit elevated until today which time they are 101- 140. CDE is consulted. (7) Arteriosclerotic heart disease (ASHD) Current visit: Yes Status: Chronic (8) Dermatitis Current visit: Yes Status: Chronic Started hydrocortisone lotion yesterday. Patient reports that his arms are doing better. Remains on prednisone 10 mg daily. DVT Prophylaxis: Coumadin Resuscitation Status: Do Not Resuscitate - Course Hospital Course: Ulysses Peoples MD: 01/17/18 14:09 Patient is cooperative with therapy. He is settling into the rehabilitation milieu. His blood sugars are a bit elevated. Continues to demonstrate substantial myopathy from his CHF. 01/19/18 12:46 Patient tolerating therapy well. INR improved. He is making functional gains. 01/22/18 10:52 He is making functional gains. Tolerates therapy adequately despite his severely reduced ejection fraction. Myopathic weakness continues but is improved. INR is therapeutic at 2.30. Red rash on upper extremities, chronic. We'll add hydrocortisone lotion. 01/23/18 10:42 Arm itching is better with hydrocortisone lotion. Lower extremity myopathy markedly improved based on improved transfers. Excessive weakness if he pushes himself and he was urged not to do so. Otherwise tolerating therapy adequately. Sugars improved today. - Interventions to Obtain Goals PT Treatment Plan: Balance/Proprioception, Functional Activities, Gait Training , Patient/Family Education, Therapeutic Exercise OT Treatment Plan: ADL (Basic Care), Balance Training, IADL, Pt./Family Education, Ther. Exercise for ADL Goals Progress/Modifications: His arm dermatitis is symptomatically improved with hydrocortisone lotion. He does have evidence of excessive fatigue if he pushes himself and he was urged not to go too far in this regard based on his markedly reduced ejection fraction. Despite this, he is able to tolerate therapy reasonably well and is highly motivated to improve to get back to independent living. I am concerned about his requirement for insulin and whether he will be able to see the markings on the insulin syringe or pen etc. CDE is consulted in this regard.
[2018-01-23] MEDS ORDERED: WARFARIN 3 MG TABLET PO SCH (12:00)
[2018-01-23] MEDS: INSULIN ASPART 100unit/ml INJECTION SQ PRN ×2 (14:52→20:35)
[2018-01-23] MEDS: INSULIN GLARGINE 100unit/ml INJECTION SQ SCH (20:35)
[2018-01-23] MEDS: DOXEPIN 10 MG CAPSULE PO SCH (20:35)
[2018-01-23] MEDS: ATORVASTATIN 10 MG TABLET PO SCH (20:36)
[2018-01-23] MEDS: SENNOSIDES 25 MG PO PRN (20:36)
[2018-01-24] MEDS: OMEPRAZOLE 20 MG CAPSULE PO SCH (06:25)
--- NOTE | 2018-01-24 08:09 | Pharmacy Consult ---
Pharmacy Consult-Warfarin - Laboratory Information 01/16/18 01/17/18 01/17/18 16:45 05:04 05:04 Hgb 10.7 L Hct 33.6 L INR 1.08 1.08 01/18/18 01/19/18 01/20/18 04:23 05:05 05:01 Hgb Hct INR 1.15 1.41 H 1.73 H 01/20/18 01/21/18 01/22/18 05:01 05:11 04:19 Hgb 10.7 L Hct 33.5 L INR 2.13 H 2.30 H 01/23/18 01/24/18 04:43 05:33 Hgb Hct INR 2.11 H 2.15 H - Consult Information COUMADIN CONSULT (Recurring): 87 yr old male patient admitted for weakness His home med warfarin dose is 3 mg x 3 days and 2 mg x 4 days. DATE INR DOSE GIVEN 01/16/18 1.08 3 MG 01/17/18 1.08 5 MG 01/18/18 1.15 7.5 MG 01/19/18 1.41 3.75 MG 01/20/18 1.73 4 MG 01/21/18 2.13 3 MG 01/22/18 2.30 2 MG 01/23/18 2.11 3 MG 01/24/18 2.15 3 MG will be given today INR is in therapeutic range of 2-3. Thank you. Ida Eaton, PharmD
[2018-01-24] MEDS: SITAGLIPTIN 100 MG TABLET PO SCH (08:22)
[2018-01-24] MEDS: CARVEDILOL 6.25 MG TABLET PO SCH ×2 (08:24→17:36)
[2018-01-24] MEDS: AMIODARONE 200 MG TABLET PO SCH ×2 (08:26→20:58)
[2018-01-24] MEDS: DOCUSATE SODIUM 100 MG CAPSULE PO SCH (08:27)
[2018-01-24] MEDS: CALCIUM 600 + VIT D 400 TABLET PO SCH (08:27)
[2018-01-24] MEDS: FEBUXOSTAT 40 MG TABLET PO SCH (08:28)
[2018-01-24] MEDS: FOLIC ACID 1 MG TABLET PO SCH (08:28)
[2018-01-24] MEDS: PredniSONE 5 MG TABLET PO SCH (08:30)
[2018-01-24] MEDS: INSULIN ASPART 100unit/ml INJECTION SQ SCH ×3 (08:35→17:42)
[2018-01-24] MEDS: HYDROCORTISONE 2.5% LOTION 59ml TOP SCH ×2 (09:26→21:00)
--- NOTE | 2018-01-24 10:06 | Progress Note ---
- Date 01/24/18 Subjective: Venancio is seen today in follow up while eating breakfast. He reports that he is feeling great today. He denies having pain or shortness of breath currently. Chest hematoma continues to improve in size. Appetite was been good, Bowels are moving. Objective Vital signs: Temperature 98.0 F 01/24/18 08:00 Pulse Rate 75 01/24/18 08:00 Respiratory Rate 14 01/24/18 08:00 Blood Pressure 94/63 01/24/18 08:00 Pulse Oximetry 95 01/24/18 08:00 Height/Weight/BMI: Height 1.8 m Weight 69 kg Body Mass Index 22.1 - Constitutional Present: no acute distress, well nourished, well developed - Routine HEENT Exam Eye: Present: EOMI ENT: Present: mucous membranes moist, dentition normal - Routine Respiratory Exam Present: CTA bilaterally. Absent: wheezes - Routine Cardiovascular Exam Present: RRR, S1, S2. Absent: murmur - Routine Abdominal Exam Present: soft, normoactive bowel sounds, non distended. Absent: tenderness - Routine Extremities Exam Present: normal capillary refill - Routine Skin Exam Present: dry, warm - Routine Neurological Exam Present: alert, oriented X3, CN II-XII intact, moving all extremities - Routine Lymphatic Exam Lymphatic: Absent: adenopathy - Routine Psychiatric Exam Present: normal affect, normal thought process, cooperative Results - Labs CBC & Chem 7: 01/20/18 05:01 01/25/18 04:28 Assessment and Plan Assessment and Plan: Assessment Hematoma at pacemaker site Myopathy/weakness Systolic heart failure with reported ejection fraction 10% Benign essential hypertension 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 Noted to by hypotensive this morning- Hold Coreg. Continue to monitor blood glucose INR therapeutic at 2.1 Planning for discharge Monday - Physician Narrative Narrative: Date: 01/24/18 Time: 1002 Hospital Course Summary Disclaimer: The visit summary below is not to be considered part of the above Progress Note. Hospital Course: 01/17 Agree with PT/OT/ST per attending. Pacemaker precautions: Wear sling while sleeping, no lifting over 10 pounds with the left upper upper extremity, no pushing and no pulling Coumadin per pharmacy - INR subtherapeutic at 1.08 HTN/CHF - Coreg, Bumex. BP under good control. Measure I&O, daily weights. DM2 - monitor BG, januvia. Will add SSI. CKD - Creatinine at baseline. High risk for CHF/renal failure. 01/21 BUN and creatinine are rising, currently at 119 and 3.1. He appears dry clinically. Will hold Bumex. Coreg was not given this morning because of low normal blood pressure. Give 1 L of IV fluids. Recheck BMP in a.m. Medications adjusted based on creatinine clearance: Decreased Januvia added 25 mg, decreased cephalexin to 250 mg every 8 hours. For Hyperglycemia, Sliding scale was increased to the medium corrective regimen. Lantus HS was increased to 7 units. Start NovoLog before meals at 3 units. Consider endocrine consultation. INR therapeutic at 2.13. 01/24 Renal function improved. 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 Noted to by hypotensive this morning- Hold Coreg. Continue to monitor blood glucose INR therapeutic at 2.1 Planning for discharge Monday
--- NOTE | 2018-01-24 10:40 | Fluoroscopy Report ---
Indication:Oropharyngeal dysphagia Procedure:FL barium swallow modified MODIFIED BAR. SWALLOW STUDY: Videofluoroscopy was performed in conjunction with a patient registration representative from speech pathology and a separate report and recommendations will be provided. Varying gradations of barium from thin to solid were administered. Trace aspiration was visualized with thin barium administered through a straw and by cup. No aspiration is visualized at any of the remaining consistencies. On the AP view the bolus showed no obvious preference for either side. Impression: Trace aspiration with thin barium when administered through a straw and by cup. Please see the speech pathology report for additional details and recommendations. Fluoroscopy dose: 5.94 mGy (Cumulative air kerma) Ge Currie RPA/TOMI performed this under my direct supervision. .
[2018-01-24] MEDS: INSULIN ASPART 100unit/ml INJECTION SQ PRN ×3 (10:43→21:36)
[2018-01-24] MEDS ORDERED: WARFARIN 3 MG TABLET PO SCH (12:00)
[2018-01-24] MEDS: BUMETANIDE 1 MG TABLET PO SCH (15:11)
[2018-01-24] MEDS: DOXEPIN 10 MG CAPSULE PO SCH (20:58)
[2018-01-24] MEDS: ATORVASTATIN 10 MG TABLET PO SCH (20:58)
[2018-01-24] MEDS: INSULIN GLARGINE 100unit/ml INJECTION SQ SCH (20:59)
[2018-01-25] MEDS: OMEPRAZOLE 20 MG CAPSULE PO SCH (06:15)
--- NOTE | 2018-01-25 08:22 | Pharmacy Consult ---
Pharmacy Consult-Warfarin - Laboratory Information 01/16/18 01/17/18 01/17/18 16:45 05:04 05:04 Hgb 10.7 L Hct 33.6 L INR 1.08 1.08 01/18/18 01/19/18 01/20/18 04:23 05:05 05:01 Hgb Hct INR 1.15 1.41 H 1.73 H 01/20/18 01/21/18 01/22/18 05:01 05:11 04:19 Hgb 10.7 L Hct 33.5 L INR 2.13 H 2.30 H 01/23/18 01/24/18 01/25/18 04:43 05:33 04:28 Hgb Hct INR 2.11 H 2.15 H 2.22 H - Consult Information COUMADIN CONSULT (Recurring): 87 yr old male patient admitted for weakness His home med warfarin dose is 3 mg every 3 days and 2 mg x 4 days. Therefore his total weekly dose of warfarin = 16 mg. Divided by 7 his average daily dose is 2.28. Patient had pacemaker lead placement and ACID generator placement on January 10. His warfarin was held prior to the procedure. Patient currently has a hematoma at his pacemaker placement site which is resolving. DATE INR DOSE GIVEN 01/16/18 1.08 3 MG 01/17/18 1.08 5 MG 01/18/18 1.15 7.5 MG 01/19/18 1.41 3.75 MG 01/20/18 1.73 4 MG 01/21/18 2.13 3 MG 01/22/18 2.30 2 MG 01/23/18 2.11 3 MG 01/24/18 2.15 3 MG 01/25/18 2.22 2.5 MG will be given today. INR is in therapeutic range of 2-3. Pharmacy will continue to monitor and adjust the warfarin dose. Thank you. Ida Eaton, FitzD
[2018-01-25] MEDS: PredniSONE 5 MG TABLET PO SCH (08:58)
[2018-01-25] MEDS: FEBUXOSTAT 40 MG TABLET PO SCH (08:58)
[2018-01-25] MEDS: BUMETANIDE 1 MG TABLET PO SCH ×3 (08:58→17:41)
[2018-01-25] MEDS: CALCIUM 600 + VIT D 400 TABLET PO SCH (08:58)
[2018-01-25] MEDS: FOLIC ACID 1 MG TABLET PO SCH (08:58)
[2018-01-25] MEDS: SITAGLIPTIN 100 MG TABLET PO SCH (08:59)
[2018-01-25] MEDS: INSULIN ASPART 100unit/ml INJECTION SQ SCH ×3 (09:00→17:42)
[2018-01-25] MEDS: AMIODARONE 200 MG TABLET PO SCH ×2 (09:00→22:12)
[2018-01-25] MEDS: DOCUSATE SODIUM 100 MG CAPSULE PO SCH (09:00)
[2018-01-25] MEDS: CARVEDILOL 6.25 MG TABLET PO SCH ×2 (09:00→17:41)
[2018-01-25] MEDS: HYDROCORTISONE 2.5% LOTION 59ml TOP SCH ×2 (09:47→22:13)
[2018-01-25] MEDS: INSULIN ASPART 100unit/ml INJECTION SQ PRN ×3 (10:45→22:14)
--- NOTE | 2018-01-25 11:21 | IRU Progress Note ---
- Subjective/Serverity of Illness Date: 01/25/18 Mr. Angel was evaluated on acute inpatient rehabilitation. He reports that he does feel confident going to his new apartment tomorrow. His legs are much stronger he states. He denies dyspnea with activity but does have some easy fatigability. He was seen by the certified adapted physical educator yesterday. The patient feels reasonably confident with the insulin. He denies any chest pains. He continues to be followed by speech therapy along with PT and OT. A modified barium swallow was done yesterday. This continues to demonstrate a bit of aspiration with thin liquids. He will likely need to stay on thickened liquids for the time being. Exam Vital Signs: Temperature 97.6 F 01/25/18 07:12 Pulse Rate 59 L 01/25/18 08:57 Respiratory Rate 18 01/25/18 07:12 Blood Pressure 102/47 01/25/18 08:57 Pulse Oximetry 99 01/25/18 07:12 Height/Weight/BMI: Height 1.8 m Weight 68.6 kg Body Mass Index 22.1 - Constitutional Present: no acute distress, well nourished, well developed, cooperative - Routine HEENT Exam Eye: Present: EOMI ENT: Present: mucous membranes moist, oropharynx clear - Routine Neck Exam Present: supple - Routine Chest/Breast/Axilla Exam Comments: Hematoma is receiving in the left anterior chest. No evidence of infection. - Routine Respiratory Exam Present: CTA bilaterally. Absent: wheezes - Routine Cardiovascular Exam Present: RRR, S1, S2, murmur - Routine Abdominal Exam Present: soft, normoactive bowel sounds, non distended. Absent: tenderness - Routine Extremities Exam Present: no edema, normal capillary refill - Routine Skin Exam Present: dry, warm - Routine Neurological Exam Present: alert, oriented X3, CN II-XII intact - Routine Psychiatric Exam Present: normal affect, cooperative, good insight, good judgment Results IRU - Labs Labs: INR is 2.22. IRU A/P (1) Myopathy Current visit: Yes Status: Acute Patient's lower extremity weakness is markedly improved. He has done well with therapy has made significant functional gains. 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 (7) Arteriosclerotic heart disease (ASHD) Current visit: Yes Status: Chronic (8) Dermatitis Current visit: Yes Status: Chronic DVT Prophylaxis: Coumadin Resuscitation Status: Do Not Resuscitate - Course Hospital Course: Ulysses Peoples MD: 01/17/18 14:09 Patient is cooperative with therapy. He is settling into the rehabilitation milieu. His blood sugars are a bit elevated. Continues to demonstrate substantial myopathy from his CHF. 01/19/18 12:46 Patient tolerating therapy well. INR improved. He is making functional gains. 01/22/18 10:52 He is making functional gains. Tolerates therapy adequately despite his severely reduced ejection fraction. Myopathic weakness continues but is improved. INR is therapeutic at 2.30. Red rash on upper extremities, chronic. We'll add hydrocortisone lotion. 01/23/18 10:42 Arm itching is better with hydrocortisone lotion. Lower extremity myopathy markedly improved based on improved transfers. Excessive weakness if he pushes himself and he was urged not to do so. Otherwise tolerating therapy adequately. Sugars improved today. 01/25/18 11:20 Repeat modified barium swallow indicates continued aspiration with thin liquids. Lower extremity weakness markedly improved. Has been seen by certified adapted physical educator. - Interventions to Obtain Goals PT Treatment Plan: Balance/Proprioception, Functional Activities, Gait Training , Patient/Family Education, Therapeutic Exercise OT Treatment Plan: ADL (Basic Care), Balance Training, IADL, Pt./Family Education, Ther. Exercise for ADL Goals Progress/Modifications: Anticipate safe transition to his home environment tomorrow.
[2018-01-25] MEDS ORDERED: WARFARIN 2.5 MG TABLET PO SCH (12:00)
[2018-01-25] MEDS: ATORVASTATIN 10 MG TABLET PO SCH (22:12)
[2018-01-25] MEDS: DOXEPIN 10 MG CAPSULE PO SCH (22:12)
[2018-01-25] MEDS: INSULIN GLARGINE 100unit/ml INJECTION SQ SCH (22:13)
[2018-01-26] MEDS: OMEPRAZOLE 20 MG CAPSULE PO SCH (06:05)
--- NOTE | 2018-01-26 07:43 | Pharmacy Consult ---
Pharmacy Consult-Warfarin - Laboratory Information 01/16/18 01/17/18 01/17/18 16:45 05:04 05:04 Hgb 10.7 L Hct 33.6 L INR 1.08 1.08 01/18/18 01/19/18 01/20/18 04:23 05:05 05:01 Hgb Hct INR 1.15 1.41 H 1.73 H 01/20/18 01/21/18 01/22/18 05:01 05:11 04:19 Hgb 10.7 L Hct 33.5 L INR 2.13 H 2.30 H 01/23/18 01/24/18 01/25/18 04:43 05:33 04:28 Hgb Hct INR 2.11 H 2.15 H 2.22 H 01/26/18 04:56 Hgb Hct INR 2.34 H COUMADIN CONSULT (Recurring): 87 yr old male patient admitted for weakness. His home med warfarin dose is reported as 3 mg every 3 days and 2 mg x 4 days. Patient had pacemaker lead placement and ACID generator placement on January 10. His warfarin was held prior to the procedure. Patient currently has a hematoma at his pacemaker placement site which is resolving. DATE INR DOSE GIVEN 01/16/18 1.08 3 MG 01/17/18 1.08 5 MG 01/18/18 1.15 7.5 MG 01/19/18 1.41 3.75 MG 01/20/18 1.73 4 MG 01/21/18 2.13 3 MG 01/22/18 2.30 2 MG 01/23/18 2.11 3 MG 01/24/18 2.15 3 MG 01/25/18 2.22 2.5 MG 01/26/18 2.34 Pt is stabilizing on 2.5mg daily. Will repeat that dose today. Thank you.
[2018-01-26 08:15] VITALS: BP 135/67; PULSE 59; RESP 18; TEMP 97.7; O2SAT 98
[2018-01-26] MEDS: INSULIN ASPART 100unit/ml INJECTION SQ SCH ×2 (08:54→12:11)
[2018-01-26] MEDS: BUMETANIDE 1 MG TABLET PO SCH ×3 (08:55→13:01)
[2018-01-26] MEDS: DOCUSATE SODIUM 100 MG CAPSULE PO SCH (08:55)
[2018-01-26] MEDS: SITAGLIPTIN 100 MG TABLET PO SCH (08:56)
[2018-01-26] MEDS: PredniSONE 5 MG TABLET PO SCH (08:56)
[2018-01-26] MEDS: HYDROCORTISONE 2.5% LOTION 59ml TOP SCH (08:57)
[2018-01-26] MEDS: AMIODARONE 200 MG TABLET PO SCH (08:57)
[2018-01-26] MEDS: CALCIUM 600 + VIT D 400 TABLET PO SCH (08:57)
[2018-01-26] MEDS: FEBUXOSTAT 40 MG TABLET PO SCH (08:57)
[2018-01-26] MEDS: FOLIC ACID 1 MG TABLET PO SCH (08:58)
[2018-01-26] MEDS: CARVEDILOL 6.25 MG TABLET PO SCH (09:00)
--- NOTE | 2018-01-26 10:48 | IRU Progress Note ---
- Subjective/Serverity of Illness Date: 01/26/18 Venancio was reassess in his room on acute inpatient rehabilitation. He is doing exceptionally well. He was able to tolerate walking outdoors today without difficulty. Denies significant dyspnea. His energy and exercise tolerance is significantly improved. He denies any chest pains. We addressed questions regarding his Lantus dose of 6 units daily, his blood sugar testing frequency of twice daily, prescriptions etc. He denies any problems right now and is anxious to get home today. Exam Vital Signs: Temperature 97.7 F 01/26/18 08:13 Pulse Rate 59 L 01/26/18 08:13 Respiratory Rate 18 01/26/18 08:13 Blood Pressure 135/67 01/26/18 08:13 Pulse Oximetry 98 01/26/18 08:13 Height/Weight/BMI: Height 1.8 m Weight 68.6 kg Body Mass Index 22.1 - Constitutional Present: no acute distress, well nourished, well developed, cooperative - Routine HEENT Exam Eye: Present: EOMI ENT: Present: mucous membranes moist, oropharynx clear - Routine Respiratory Exam Present: decreased breath sounds, CTA bilaterally. Absent: wheezes - Routine Cardiovascular Exam Present: RRR, S1, S2, murmur - Routine Abdominal Exam Present: soft, normoactive bowel sounds, non distended. Absent: tenderness - Routine Extremities Exam Present: normal capillary refill - Routine Skin Exam Present: dry, warm - Routine Neurological Exam Present: alert, oriented X3, CN II-XII intact - Routine Psychiatric Exam Present: normal affect IRU A/P (1) Myopathy Current visit: Yes Status: Acute His lower extremity strength has improved dramatically throughout therapy time. He is able to ambulate at modified independent level. He is using a walker. I discussed with him the importance of using a walker at home. (2) Debility Current visit: Yes Status: Acute (3) Atrial fibrillation Qualifiers: Atrial fibrillation type: permanent Qualified Code(s): I48.2 - Chronic atrial fibrillation Current visit: Yes Status: Acute His INR is therapeutic at 2.34. (4) Systolic heart failure Qualifiers: Heart failure chronicity: acute on chronic Qualified Code(s): I50.23 - Acute on chronic systolic (congestive) heart failure Current visit: Yes Status: Acute His severe systolic heart failure appears to be reasonably well compensated at present. (5) Benign essential hypertension Current visit: Yes Status: Chronic (6) Diabetes mellitus type II, uncontrolled Qualifiers: Diabetes mellitus correction insulin use: without correction use Diabetes mellitus complication status: with circulatory complication Diabetes mellitus complication detail: with other circulatory complications Qualified Code(s): E11.59 - Type 2 diabetes mellitus with other circulatory complications; E11.65 - Type 2 diabetes mellitus with hyperglycemia Current visit: Yes Status: Chronic (7) Arteriosclerotic heart disease (ASHD) Current visit: Yes Status: Chronic (8) Dermatitis Current visit: Yes Status: Chronic DVT Prophylaxis: Coumadin Resuscitation Status: Do Not Resuscitate - Course Hospital Course: Ulysses Peoples MD: 01/17/18 14:09 Patient is cooperative with therapy. He is settling into the rehabilitation milieu. His blood sugars are a bit elevated. Continues to demonstrate substantial myopathy from his CHF. 01/19/18 12:46 Patient tolerating therapy well. INR improved. He is making functional gains. 01/22/18 10:52 He is making functional gains. Tolerates therapy adequately despite his severely reduced ejection fraction. Myopathic weakness continues but is improved. INR is therapeutic at 2.30. Red rash on upper extremities, chronic. We'll add hydrocortisone lotion. 01/23/18 10:42 Arm itching is better with hydrocortisone lotion. Lower extremity myopathy markedly improved based on improved transfers. Excessive weakness if he pushes himself and he was urged not to do so. Otherwise tolerating therapy adequately. Sugars improved today. 01/25/18 11:20 Repeat modified barium swallow indicates continued aspiration with thin liquids. Lower extremity weakness markedly improved. Has been seen by staff development educator. 01/26/18 10:48 Patient has done well with therapy. He will go home with Lantus 6 units daily. Exercise tolerance is improved. - Interventions to Obtain Goals PT Treatment Plan: Balance/Proprioception, Functional Activities, Gait Training , Patient/Family Education, Therapeutic Exercise OT Treatment Plan: ADL (Basic Care), Balance Training, IADL, Pt./Family Education, Ther. Exercise for ADL
[2018-01-26] MEDS: INSULIN ASPART 100unit/ml INJECTION SQ PRN (10:59)
--- NOTE | 2018-01-26 11:13 | Discharge Summary ---
Discharge Information Date of admission: 01/16/18 15:25 Attending Physician: Ulysses Peoples MD Primary care physician: Panfilo Villa MD Consults: 01/16/18 16:22 Physician Consult [CONS] Routine Consulting Provider: Melanie Orta Reason For Exam: medical management Ordering Provider has Notified Prosthetic Aides Teacher: No 01/22/18 Brick Veneer Maker Consult [Inpatient Diabetic Consult] [CONS] Routine Diabetic Diagnosis: E11.65 Uncontrolled T2 DM Diabetic Training: Medications Comment: Newly on insulin, teach insulin and home glucose m - Discharge Diagnosis (1) Myopathy Status: Acute (2) Debility Status: Acute (3) Atrial fibrillation Status: Acute (4) Systolic heart failure Status: Acute (5) Benign essential hypertension Status: Chronic (6) Diabetes mellitus type II, uncontrolled Status: Chronic (7) Arteriosclerotic heart disease (ASHD) Status: Chronic (8) Dermatitis Status: Chronic 1. 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 Debilitation, generalized 3. Atrial fibrillation, chronic/permanent 4. Systolic heart failure, chronic 5. Benign essential hypertension 6. Diabetes mellitus type 2, not controlled, not on long-term insulin therapy but with circulatory complications (coronary artery disease) 7. Atherosclerotic heart disease 8. Nonspecific dermatitis of upper extremities requiring corticosteroid therapy - Laboratory Labs: 01/20/18 05:01 01/26/18 04:56 History of Present Illness HPI: Mr. Angel recently had a generator and lead upgrade for his AICD performed on 01/10/2018. Although he had stopped his Coumadin prior to the current lead placement and generator change, he developed a significant hematoma over the left chest area where the device was placed. He was stable at the time of dismissal from the generator change and went home to stay with his family for a couple of days in [place]. He developed extreme weakness and lethargy and presented to the emergency department at [facility] on 01/13/2018. His BUN was 101 and his creatinine was 2.3. He was sent back to [facility] for admission. His initial white count was 14,000 in the emergency department on 01/13/2018 and his blood sugar was 303. He was stabilized in [place] and it was noted that he had multiple functional deficits. In particular he complained of his lower extremities being very weak and "my legs not working right." He was felt to have myopathy secondary to his severe congestive heart failure with reported ejection fraction around 10%. The patient was transferred to acute inpatient rehabilitation in [facility] on . Hospital Course This is a general summary of the patient's hospital course. For more details refer to the complete medical record. Patient was admitted to acute inpatient rehabilitation on 01/16/2018 for a multidisciplinary approach. He was followed by the hospitalist service as well as Dr. Peoples, registered medical transcriptionist. His labs were closely monitored. His initial creatinine was 2.6 on January 17 rising to 3.1 on January 21. The final creatinine was 2.5 on 01/26/18. Pharmacy dosed and monitor his warfarin. His initial INR was 1.08 on January 16. As of January 26 it was 2.34. He will go home on warfarin 2.5 mg daily with recommendation to recheck BMP and INR in 4-5 days. His diabetes was monitored carefully. His sugars remained elevated. He was seen by the health educator. He will be going home on long-acting insulin (Lantus via Solostar pen at 6 U at HS daily) only as well as his oral agents. It was recommended that the patient check his blood sugars twice daily, before breakfast and before the evening meal. He was given a new meter and prescription for strips in this regard. With regard to his cardiac status, he remained stable. His lungs remained clear with diminished breath sounds. He does have history of severe cardiomyopathy with ejection fraction reportedly 10% according to records we have available. ( I do not have the actual echocardiogram at this time.) Despite this he was able to tolerate therapy reasonably well. He did not have substantial shortness of breath although did have easy fatigability. He had no chest pain. We monitored his cardiac status carefully and avoided excessive exertion in this regard. It seemed as though his energy and exercise tolerance improved rather dramatically during his inpatient rehabilitation stay. His lower extremity proximal muscle weakness/myopathy also improved dramatically. He was noted to have dysphagia and participated in speech therapy. He was able to eat regular solids but required thickened liquids for safety. A repeat modified barium swallow with speech therapy present was performed on 01/24/2018 continue to demonstrate evidence of aspiration with thin liquids. The following levels of functional competence are to be considered preliminary information. The reader is encouraged to refer to actual therapy notes and reports for specific details. The patient was followed by physical therapy while on acute inpatient rehabilitation. At the conclusion of his stay, the following functional competencies were identified: He was able to ambulate with a 4 wheeled walker independently otherwise. He was able to ambulate over 160 feet. The patient was followed by occupational therapy while on acute inpatient rehabilitation. At the conclusion of his stay, the following functional competencies were identified: He was essentially independent to modified independent for all ADLs. The patient was followed and treated by speech therapy with regard to swallowing safety. He underwent a repeat barium swallow as described above. Recommendations at this time are for the patient to remain on thickened liquids and regular solids. The following changes are noted with regard to his medications: His prednisone was decreased to 5 mg daily for his dermatitis. His Januvia was decreased to 25 mg daily because of his renal failure. He was started on Lantus Solostar 6 units at at bedtime daily. It was recommended he check his sugars twice daily. His warfarin dose upon dismissal was 2.5 mg daily. Plans are at this time for the patient to live in an independent living apartment in [place]. He will continue to follow with his personal physician, Dr. Villa, in [place] for the time being. He has an appt to see his event staff member today after dismissal. Hospital course: 01/17 Agree with PT/OT/ST per attending. Pacemaker precautions: Wear sling while sleeping, no lifting over 10 pounds with the left upper upper extremity, no pushing and no pulling Coumadin per pharmacy - INR subtherapeutic at 1.08 HTN/CHF - Coreg, Bumex. BP under good control. Measure I&O, daily weights. DM2 - monitor BG, januvia. Will add SSI. CKD - Creatinine at baseline. High risk for CHF/renal failure. 01/21 BUN and creatinine are rising, currently at 119 and 3.1. He appears dry clinically. Will hold Bumex. Coreg was not given this morning because of low normal blood pressure. Give 1 L of IV fluids. Recheck BMP in a.m. Medications adjusted based on creatinine clearance: Decreased Januvia added 25 mg, decreased cephalexin to 250 mg every 8 hours. For Hyperglycemia, Sliding scale was increased to the medium corrective regimen. Lantus HS was increased to 7 units. Start NovoLog before meals at 3 units. Consider endocrine consultation. INR therapeutic at 2.13. 01/24 Renal function improved. Ethics Instructor today is at baseline Will resume Bumex and potassium. Noted to by hypotensive this morning- Hold Coreg. Continue to monitor blood glucose INR therapeutic at 2.1 Planning for discharge Monday Time spent with patient: greater than 35 minutes Resuscitation Status: Do Not Resuscitate Discharge Plan - Med Rec/Dispo Referrals/Follow Up: Panfilo Villa MD [Primary Care Provider] - (Dr. Cheoc Villa on 02/02/18 at 1:00 for Hosp. follow-up. [facility] [address] [place] [id number]) Prescriptions: New PredniSONE [Deltasone 5 mg] 5 mg PO WB tab Sennosides [Ex-Lax Maximum Strength] 25 mg PO HS PRN tab PRN Reason: Constipation Sitagliptin [Januvia] 25 mg PO DAILY tab Blood Sugar Diagnostic [Glucose Test Strip] 1 each MC BID #60 strip Insulin Glargine,Hum.rec.anlog [Lantus Solostar] 6 unit SQ HS #1 insuln.pen Warfarin [Coumadin] 2.5 mg PO NOON #30 tab Continue Amiodarone [Pacerone] 200 mg PO BID Calcium Carb/Vit D3/Minerals [Calcium 600+D Plus Minerals Tb] 1 each PO DAILY Acetaminophen 650 mg PO Q4HR PRN PRN Reason: Pain Docusate Sodium [Colace] 1 cap PO DAILY Ondansetron [Zofran Odt] 1 tab PO Q4HR PRN PRN Reason: Nausea Folic Acid 0.8 mg PO DAILY Febuxostat [Uloric] 40 mg PO DAILY Omeprazole [Prilosec] 20 mg PO DAILY Atorvastatin [Lipitor] 1 tab PO HS Carvedilol [Coreg] 1 tab PO BIDWM Doxepin [Sinequan] 10 mg PO HS Changed Bumetanide 1 mg PO BID #30 Potassium Chloride [MICRO-K 10 mEq Capsule] 10 meq PO BIDWM #30 Discontinued Sitagliptin [Januvia] 50 mg PO DAILY Warfarin [Coumadin] 2 mg PO . DIRECTED Warfarin [Coumadin] 3 mg PO Q3D Sennosides 8.6 mg PO BID PRN PRN Reason: Constipation PredniSONE [Deltasone 10 mg] 10 mg PO WB CephALEXin [Keflex 500 mg] 500 mg PO Q6HR No Action Oxycodone HCl 5 mg PO Q6HR PRN PRN Reason: Pain Discharge Instructions/Outpatient Orders: BMP - Basic Metabolic - [facility] Time Frame: 4 Days, Location: None Selected INR - [facility] Time Frame: 4 Days, Location: None Selected - Disposition 01 Discharged Home, Self-Care - Dismissal Complete Discharge Instructions are:: Complete
--- NOTE | 2018-01-26 11:21 | Letter to Referring Physician ---
Dear Dr. Villa, This is a brief note to bring you up-to-date on the status of Venancio Angel and his stay on the acute inpatient rehabilitation unit at [facility]. As you are likely aware, this patient initially had generator and lead change in [place]. He was sent home and was doing well for a couple of days. Following that he developed severe weakness, nausea and presented back to the emergency department in [place]. He was transferred back to [facility] for reassessment.. The patient was stabilized while on the acute level and admitted to inpatient rehabilitation unit at [facility] on January 16, 2018. While on inpatient rehabilitation, this patient was seen by occupational therapy , physical therapy and speech therapy and improved overall in their functional ability. We also monitored and managed the patient's heart failure, atrial fib, INR's/warfarin doses and diabetes while on Acute Rehab. Please see a copy of the history and physical examination as well as discharge summary faxed separately for further details. The following changes are noted with regard to his medications: His prednisone was decreased to 5 mg daily for his dermatitis. His Januvia was decreased to 25 mg daily because of his renal failure. He was started on Lantus Solostar 6 units at at bedtime daily. (He was instructed by our home fire alarm installer in this regard). It was recommended he check his sugars twice daily. His warfarin dose upon dismissal was 2.5 mg daily. Some pertinent numbers for your records are as follows: His final INR was 2.34 on 01/26/2018. His most recent hemoglobin is 10.7 and his platelets 196,000 on 01/20/2018. His final creatinine was 2.5 on 01/26/2018 and his final weight was 68.6 kg on 01/25/2018. We did recommend that he get his BMP and INR reassess in 4 or 5 days. Thank you for allowing us to be involved in this nice patient's care. Please contact me directly should you have any questions regarding their stay on the inpatient rehabilitation unit. Sincerely, Ulysses Peoples M.D.
[2018-01-26] MEDS ORDERED: WARFARIN 2.5 MG TABLET PO SCH (12:00)
== END 2018-01-26 14:10 | disposition home health service (06) | DRG 92 ==
PROVIDERS: ADMIT Internal Medicine; ATTEND Internal Medicine

== ENCOUNTER 2018-02-12 21:59 | Inpatient (IN) ==
--- NOTE | 2018-02-12 22:17 | Emergency Department Report ---
Fall HPI - General Chief Complaint: Fall <Soledad Sierra - 02/12/18 22:20> Stated Complaint: Dizziness <Soledad Sierra - 02/12/18 22:20> Time Seen by Provider: 02/12/18 22:14 <Soledad Sierra - 02/12/18 22:20> Source: patient, EMS, old records reviewed <Soledad Sierra - 02/12/18 22:35> Mode of arrival: EMS <Soledad Sierra - 02/12/18 22:35> - History of Present Illness HPI Narrative: Patient is an 87yo male who presents to ED per EMS. He reports he fell at home at 6pm because his R knee gave out from under him. He tried to get up on his own for awhile before he called family to help him up. He reports he is having pain in both knees and R hip. He began having vertigo when he was sitting in his chair around 8pm, thus prompting the EMS call. He reports he had some SOA with moving the 15 feet from where he had fallen to his chair and this isn't nl for him. He is currently c/o some tightness across his forehead. He is not currently dizzy but feels sxs would return if he stood up. He lives independently in [place]. He recently moved here to be closer to family b /c he had fallen at home previously. His PCP is Dr. Panfilo Villa in [place]. He doesn't know if he hit his head when he fell. He doesn't c/o headache , but c/o developing a "tightness" across his forehead. <Soledad Sierra - 02/12/18 22:37> - Related Data Home Medications Medication Instructions Recorded Confirmed Amiodarone [Pacerone] 200 mg PO BID 11/19/17 02/12/18 Omeprazole [Prilosec] 20 mg PO DAILY 11/19/17 02/12/18 Acetaminophen 650 mg PO Q4HR PRN 01/16/18 02/12/18 Calcium Carb/Vit D3/Minerals 1 each PO DAILY 01/16/18 02/12/18 [Calcium 600+D Plus Minerals Tb] Carvedilol [Coreg] 1 tab PO BIDWM 01/16/18 02/12/18 Docusate Sodium [Colace] 1 cap PO DAILY 01/16/18 02/12/18 Doxepin [Sinequan] 10 mg PO HS 01/16/18 02/12/18 Febuxostat [Uloric] 40 mg PO DAILY 01/16/18 02/12/18 Folic Acid 0.8 mg PO DAILY 01/16/18 02/12/18 Oxycodone HCl 5 mg PO Q6HR PRN 01/16/18 02/12/18 Ferrous Sulfate [Iron] 325 mg PO QDRHS 02/12/18 02/12/18 Melatonin/Pyridoxine HCl (B6) 3 mg PO HS 02/12/18 02/12/18 [Melatonin 3 mg Tablet] Previous Rx's Medication Instructions Recorded Bumetanide 1 mg PO BID #30 01/25/18 Potassium Chloride [MICRO-K 10 mEq 10 meq PO BIDWM #30 01/25/18 Capsule] Sennosides [Ex-Lax Maximum 25 mg PO HS PRN tab 01/25/18 Strength] Sitagliptin [Januvia] 25 mg PO DAILY tab 01/25/18 Atorvastatin [Lipitor] 1 tab PO HS #30 tab 01/26/18 Blood Sugar Diagnostic [Glucose 1 each MC BID #60 strip 01/26/18 Test Strip] Insulin Glargine,Hum.rec.anlog 6 unit SQ HS #1 insuln.pen 01/26/18 [Lantus Solostar] Warfarin [Coumadin] 2.5 mg PO NOON #30 tab 01/26/18 <Soledad Sierra - 02/12/18 22:20> Allergies Allergy/AdvReac Type Severity Reaction Status Date / Time finasteride Allergy Intermediate Rash Verified 02/12/18 22:18 hydromorphone Allergy Unknown combative Verified 02/12/18 22:18 nitrofurantoin Allergy Unknown Nausea and Verified 02/12/18 22:18 Vomiting <Soledad Sierra - 02/12/18 22:20> Review of Systems All systems: reviewed and negative except as stated (tightness across the forehead, R hip and b/l knee pain, leg weakness, LE swelling. Recent vertigo and SOA but not having these sxs currently.) <Soledad Sierra - 02/13/18 02:31> PFSH Patient Stated Medical History Cataracts Yes Cardiac Arrhythmia Yes: A-FIB Congestive Heart Failure Yes Hypertension Yes Myocardial Infarction Yes Diabetes Mellitus Type 2 Yes Constipation No Gastroesophageal Reflux Yes Disease Other GI hernia repair Hx Incontinence No Hx Renal Disease Yes: STAGE IV Clotting Problems Yes: ON COUMADIN <Alberto Acevedo - 02/13/18 00:38> Patient Stated Medical History Cataracts Yes Cardiac Arrhythmia Yes: A-FIB Congestive Heart Failure Yes Hypertension Yes Myocardial Infarction Yes Diabetes Mellitus Type 2 Yes Constipation No Gastroesophageal Reflux Yes Disease Other GI hernia repair Hx Incontinence No Hx Renal Disease Yes: STAGE IV Clotting Problems Yes: ON COUMADIN <Soledad Sierra - 02/12/18 22:20> Medical History Updates: 1. Systolic heart failure with reported ejection fraction 10%. 2. Benign essential hypertension. 3. Atherosclerotic heart disease status post myocardial infarction. 4. A-fib. 5. 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 6. GERD. 7. Chronic kidney disease stage IV. 8. Coagulopathy secondary to use of Coumadin. 9. Gout. 10. Prostate cancer <Soledad Sierra 02/12/18 22:35> Surgical History: 1. Cardiac stent x2 placement after myocardial infarction early 2005. 2. Permanent pacemaker placement 2008, revision and AICD placement 2010, revision and new AICD placement 2016, new AICD and lead placement 2018. 3. AV ablation 2017. 4. Bilateral cataract procedure. 5. Cervical and lumbar spine surgery. 6. Appendectomy. 7. Tonsillectomy. 8. Umbilical hernia repair. 9. Right total shoulder replacement. 10. Left total knee replacement <Soledad Sierra 02/12/18 22:20> Family History Updates: His father of heart failure at age 55. Mother of scarlet fever at age 31, shortly after giving to Venancio's younger brother. His brother in his 30s of alcoholism. <Soledad Sierra 02/12/18 22:20> - Social History Smoking status: Former smoker (quit smoking 30 years ago, age 57) <Soledad Sierra 02/12/18 22:20> Packs-years: 80 <Soledad Sierra 02/12/18 22:20> Substance use type: does not use <Soledad Sierra /04/18 22:20> Alcohol intake: former (occasional mixed drinks in the past. Last intake 2001) <Soledad Sierra 02/12/18 22:20> Alcohol intake frequency: former alcohol drinker (used to drink on occasion) < Soledad Sierra 02/12/18 22:20> Housing: house <SierraSoledad rubio 02/12/18 22:20> Household members: none <Soledad Sierra 02/12/18 22:20> Current occupational status: retired <SierraSoledad rubio 02/12/18 22:20> Current residence: Apartment/Private Home <Soledad Sierra 02/12/18 22:20> Social history: Dr Panfilo [facility] <Madi Sierrai Kit 02/12/18 22:20> Physical Exam - General General appearance: alert, in no apparent distress <Soledad Sierra 02/12/18 22:35> - Normal Exams: Head:: Normocephalic without trauma <Soledad Sierra 02/12/18 22:35> Eyes:: Pupils are PERRLA w/ EOMI <RigoSoledad 02/12/18 22:35> ENMT:: No facial trauma <Soledad Sierra 02/12/18 22:35> Neck:: Full range of motion, without adenopathy <Soledad Sierra 02/12/18 22: 35> Chest/Respirations:: Clear all chopra <Soledad Sierra 02/12/18 22:35> Cardiovascular:: Regular rate and rhythm, capillary refill <Soledad Sierra 22:35> Abdomen:: Bowel sounds positive, soft, non-tender, non-distended <Soledad Sierra 02/12/18 22:35> Integumentary:: No rashes <Soledad Sierra 02/12/18 22:35> Neurological:: Patient is alert, and oriented, exams w/o gross deficits < Soledad Sierra 02/12/18 22:35> Psychiatric:: Patient exhibits, appropriate attention <Soledad Sierra - 22:35> - Chest Chest inspection: Present: other (L chest with AICD in place - swelling to the area (chronic) - nontender) <Soledad Sierra - 02/12/18 22:35> - Extremities Exam Extremities exam: Present: pedal edema (1+), other (effusion R knee. Tender with palpation over the patella. Pain with movement. NO laxity. R hip tender over greater trochanter with mild bruising in this area. Pain in hip with movement of the leg. Pt unable to to walk. Significant pain in R hip and knee w/ wt bearing.) <Soledad Sierra - 02/13/18 00:42> Course Vital Signs Temperature 97.9 F 02/12/18 22:00 Pulse Rate 59 L 02/12/18 22:00 Respiratory Rate 20 02/12/18 22:00 Blood Pressure 124/64 02/12/18 22:00 Pulse Oximetry 99 02/12/18 22:00 Temperature 97.9 F 02/12/18 22:00 Pulse Rate 59 L 02/12/18 22:00 Respiratory Rate 20 02/12/18 22:00 Blood Pressure 124/64 02/12/18 22:00 Pulse Oximetry 99 02/12/18 22:00 <Alberto Acevedo - 02/13/18 00:38> Vital Signs Temperature 97.9 F 02/12/18 22:00 Pulse Rate 59 L 02/12/18 22:00 Respiratory Rate 20 02/12/18 22:00 Blood Pressure 124/64 02/12/18 22:00 Pulse Oximetry 99 02/12/18 22:00 Temperature 97.9 F 02/12/18 22:00 Pulse Rate 59 L 02/12/18 22:00 Respiratory Rate 20 02/12/18 22:00 Blood Pressure 124/64 02/12/18 22:00 Pulse Oximetry 99 02/12/18 22:00 <Soledad Sierra - 02/12/18 22:20> Fall - MDM Narrative Medical decision making narrative: Pt initially presented due to fall followed by R hip and knee pain followed by vertigo. CT head neg. His R knee and hip xrays were neg. Given he could barely bear wt, hip CT was performed and was neg. His labs reveals a hgb of 8.0 (was > 10 less than a month ago.) Lab was drawn prior to fluid infusion. Cr 3.1 ( baseline 2.5). During his stay, he was given Tylenol 1000mg for pain and meclizine 25mg for vertigo and ativan 0.5mg for anxiety. Toward the end of his stay he started having episodes where he would close his eyes and stiffen up for a few seconds at a time. He would then open his eyes and state he felt "normal" again. He states during these "episodes" he feels like life leaves his body. He is continuously monitored during these episodes and he remains paced at 60BPM and O2 sats remain stable. He had no change in mentation throughout his stay. He was accepted to medical floor by . <Soledad Sierra - 02/13/18 02:31> EKG shows an electronic atrial and ventricular paced rhythm, no other ectopy ischemia or infarction as seen <Alberto Acevedo - 02/13/18 00:38> - Medical Records Attestation: I reviewed the patient's medical records. <Soledad Sierra - 02:31> - Lab Data Attestation: I reviewed the patient's lab results. <Soledad Sierra - 02/13/18 02:31> Result diagrams: 02/12/18 22:14 02/12/18 23:35 <Soledad Sierra - 02/12/18 22:20> Lab Results 02/12/18 02/12/18 02/12/18 Range/Units 22:14 23:35 23:35 WBC 9.6 (4.5-11.0) T/MM3 RBC 2.52 L (4.50-5.90) M/MM3 Hgb 8.0 L (13.5-17.5) GM/DL Hct 24.7 L (41-53) % MCV 98.0 (80-100) UM3 MCH 31.7 (26-34) UUG MCHC 32.4 (31-37) GM/DL RDW Std Deviation 55.1 H (36.9-50.2) FL Plt Count 143 (130-400) T/MM3 MPV 11.5 (9.4-12.4) UM3 Immature Gran % (Auto) 0.3 (0.0-0.5) % Neut % (Auto) 70.7 H (33-66) % Lymph % (Auto) 16.6 L (23-45) % Maury % (Auto) 11.4 H (0-9.0) % Eos % (Auto) 0.7 (0-4) % Baso % (Auto) 0.3 (0-2) % Neut # (Auto) 6.8 (1.8-7.7) T/MM3 Lymph # (Auto) 1.6 (1-4.8) T/MM3 Maury # (Auto) 1.1 H (0-0.8) T/MM3 Eos # (Auto) 0.1 (0-0.5) T/MM3 Baso # (Auto) 0.0 (0-0.2) T/MM3 Abs Immat Gran (auto) 0.03 (0.00-0.03) T/MM3 INR 3.34 H (0.92-1.18) Turbidity < 20 (0-20) Sodium 142 (134-144) MEQ/L Potassium 4.5 (3.6-5) MEQ/L Chloride 103 (98-107) MEQ/L Carbon Dioxide 22 (22-30) MEQ/L Anion Gap 17 H (5-15) meq/L BUN 81.0 H* (9-20) MG/DL Creatinine 3.1 H (0.8-1.5) mg/dL GFR Calculation 19 BUN/Creatinine Ratio 26 (6-26) RATIO Glucose 153 H (75-110) MG/DL Calculated Osmolality 300 H (261-280) MOSM/KG Calcium 9.2 (8.4-10.2) MG/DL Total Bilirubin 1.30 (0.20-1.30) MG/DL Icterus Index < 2 (0-7) AST 40 (17-59) U/L ALT 32 (1-50) U/L Alkaline Phosphatase 135 H (38-126) U/L Troponin I 0.091 (0-0.12) ng/ml Total Protein 7.1 (6.3-8.2) g/dL Albumin 4.1 (3.5-5.0) g/dL Globulin 3.0 (2.4-3.6) G/DL Albumin/Globulin Ratio 1.4 (1.1-2.2) RATIO Specimen Hemolysis < 15 (0-25) <Alberto Acevedo - 02/13/18 00:38> - Radiology Data Attestation: I reviewed the patient's radiology results. <Soledad Sierra - 01/26 02:31> Disposition Clinical Impression: Vertigo, Hip pain, right, Knee pain, right <Soledad Sierra - 02/13/18 02:31> Disposition: 02 To [facility] [place] <Soledad Sierra - 02/13/18 02:31> Instructions: <Soledad Sierra - 02/12/18 22:20> Prescriptions: No Action Amiodarone [Pacerone] 200 mg PO BID Oxycodone HCl 5 mg PO Q6HR PRN PRN Reason: Pain Calcium Carb/Vit D3/Minerals [Calcium 600+D Plus Minerals Tb] 1 each PO DAILY Acetaminophen 650 mg PO Q4HR PRN PRN Reason: Pain Docusate Sodium [Colace] 1 cap PO DAILY Folic Acid 0.8 mg PO DAILY Febuxostat [Uloric] 40 mg PO DAILY Bumetanide 1 mg PO BID #30 Potassium Chloride [MICRO-K 10 mEq Capsule] 10 meq PO BIDWM #30 Sennosides [Ex-Lax Maximum Strength] 25 mg PO HS PRN tab PRN Reason: Constipation Sitagliptin [Januvia] 25 mg PO DAILY tab Blood Sugar Diagnostic [Glucose Test Strip] 1 each MC BID #60 strip Insulin Glargine,Hum.rec.anlog [Lantus Solostar] 6 unit SQ HS #1 insuln.pen Warfarin [Coumadin] 2.5 mg PO NOON #30 tab Atorvastatin [Lipitor] 1 tab PO HS #30 tab Ferrous Sulfate [Iron] 325 mg PO QDRHS Melatonin/Pyridoxine HCl (B6) [Melatonin 3 mg Tablet] 3 mg PO HS Omeprazole [Prilosec] 20 mg PO DAILY Carvedilol [Coreg] 1 tab PO BIDWM Doxepin [Sinequan] 10 mg PO HS <Soledad Sierra - 02/12/18 22:20> Referrals: Panfilo Villa MD [Primary Care Provider] - <Soledad Sierra - 22:20> Forms: <Soledad Sierra - 02/12/18 22:20> - Seen By: midlevel and physician <Soledad Sierra - 02/13/18 02:31>
[2018-02-13] MEDS ORDERED: NS 500 ML IV ONE (00:50)
[2018-02-13] MEDS ORDERED: NS 500 ML IV SCH (01:00)
[2018-02-13] MEDS ORDERED: ACETAMINOPHEN 500 MG TABLET PO ONE (01:25)
[2018-02-13] MEDS ORDERED: MECLIZINE 25 MG TABLET PO ONE (01:25)
[2018-02-13] MEDS ORDERED: ACETAMINOPHEN 325 MG TABLET PO PRN ×2 (02:21)
[2018-02-13] MEDS ORDERED: MORPHINE SULFATE 4mg INJECTION IVP PRN (02:21)
[2018-02-13] MEDS ORDERED: DEXTROSE 50% SYRINGE 50ml (1 AMP) IVP PRN (02:21)
[2018-02-13] MEDS ORDERED: ONDANSETRON 4 MG/2 ML INJECTION IVP PRN (02:21)
[2018-02-13] MEDS ORDERED: NS 1,000 ML IV SCH (02:21)
[2018-02-13] MEDS ORDERED: HYDROCODONE/APAP 5mg/325mg TABLET PO PRN (02:21)
--- NOTE | 2018-02-13 02:48 | History & Physical Report ---
History of Present Illness Date: 02/13/18 Chief complaint: weakness HPI: This is a 87 y/o male that lives independently @ [facility] He apparently has been having increased weakness. Today his right leg gave out and he was unable to get up. He contacted his daughter and son in law who presented to help him get up. He continued to be weak and had significant right knee and hip pain. He presented to the ED and an orthopedic evaluation demonstrated no CT evidence of hip fx and severe OA of the right knee without fx. The patient' s metabolic workup was c/w with chronic stage 4 kidney disease with somewhat worsening of his cr. The patient's vitals were stable. INR is 3.3 Patient is more anemic now with hg down from 10 to 8 with normal MCV. The patient denies any blood in stool or urine. The patent at this time is too weak to go home . He is currently on bumex for presumed diastolic dysfunction. Review of Systems Review of systems: the patient denies headache, The patient has developed dizziness since being in the ED. worse when he leans up and better when he lays back. He has episodes when he feels like his vision is darkening (almost pre syncopal). The patient has slight nausea without emesis. no neck or jaw pain. no chest pain, mild to mod short of breath with any activity. no abdomen pain, no change in bm, with no blood in stools, some difficulty starting urine stream. No worsening of edema to legs, no focal neuro complaints. no skin rashes. 12 point ROS otherwise negative except for outlined above. Past Medical History Medical History Updates: 1. Systolic heart failure with reported ejection fraction 10%. 2. Benign essential hypertension. 3. Atherosclerotic heart disease status post myocardial infarction. 4. A-fib. 5. 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 6. GERD. 7. Chronic kidney disease stage IV. 8. Coagulopathy secondary to use of Coumadin. 9. Gout. 10. Prostate cancer Surgical History: 1. Cardiac stent x2 placement after myocardial infarction early 2005. 2. Permanent pacemaker placement 2008, revision and AICD placement 2010, revision and new AICD placement 2016, new AICD and lead placement 2018. 3. AV ablation 2017. 4. Bilateral cataract procedure. 5. Cervical and lumbar spine surgery. 6. Appendectomy. 7. Tonsillectomy. 8. Umbilical hernia repair. 9. Right total shoulder replacement. 10. Left total knee replacement Family History Updates: non contributory Family History: As Above - Social History Smoking status: Former smoker (quit smoking 30 years ago, age 57) Substance use type: does not use Alcohol intake frequency: does not drink Housing: house Household members: none Current residence: Apartment/Private Home Medications Home Medications Medication Instructions Recorded Confirmed Type Amiodarone [Pacerone] 200 mg PO BID 11/19/17 02/12/18 History Omeprazole [Prilosec] 20 mg PO DAILY 11/19/17 02/12/18 History Acetaminophen 650 mg PO Q4HR PRN 01/16/18 02/12/18 History Calcium Carb/Vit D3/Minerals 1 each PO DAILY 01/16/18 02/12/18 History [Calcium 600+D Plus Minerals Tb] Carvedilol [Coreg] 1 tab PO BIDWM 01/16/18 02/12/18 History Docusate Sodium [Colace] 1 cap PO DAILY 01/16/18 02/12/18 History Doxepin [Sinequan] 10 mg PO HS 01/16/18 02/12/18 History Febuxostat [Uloric] 40 mg PO DAILY 01/16/18 02/12/18 History Folic Acid 0.8 mg PO DAILY 01/16/18 02/12/18 History Oxycodone HCl 5 mg PO Q6HR PRN 01/16/18 02/12/18 History Bumetanide 1 mg PO BID #30 01/25/18 02/12/18 Rx Potassium Chloride [MICRO-K 10 mEq 10 meq PO BIDWM #30 01/25/18 02/12/18 Rx Capsule] Sennosides [Ex-Lax Maximum 25 mg PO HS PRN tab 01/25/18 02/12/18 Rx Strength] Sitagliptin [Januvia] 25 mg PO DAILY tab 01/25/18 02/12/18 Rx Atorvastatin [Lipitor] 1 tab PO HS #30 tab 01/26/18 02/12/18 Rx Blood Sugar Diagnostic [Glucose 1 each MC BID #60 strip 01/26/18 02/12/18 Rx Test Strip] Insulin Glargine,Hum.rec.anlog 6 unit SQ HS #1 insuln.pen 01/26/18 02/12/18 Rx [Lantus Solostar] Ferrous Sulfate [Iron] 325 mg PO QDRHS 02/12/18 02/12/18 History Melatonin/Pyridoxine HCl (B6) 3 mg PO HS 02/12/18 02/12/18 History [Melatonin 3 mg Tablet] Allergies Allergy/AdvReac Type Severity Reaction Status Date / Time finasteride Allergy Intermediate Rash Verified 02/12/18 22:18 hydromorphone Allergy Unknown combative Verified 02/12/18 22:18 nitrofurantoin Allergy Unknown Nausea and Verified 02/12/18 22:18 Vomiting Poultry Allergy Unknown Verified 02/13/18 02:59 Exam Vital Signs: Temperature 97.9 F 02/12/18 22:00 Pulse Rate 60 02/13/18 02:15 Respiratory Rate 20 02/13/18 02:15 Blood Pressure 137/65 02/13/18 02:15 Pulse Oximetry 100 02/13/18 02:15 Telemetry Rhythm: Sinus Rhythm Height/Weight/BMI: Height 1.8 m Weight 74.3 kg Body Mass Index 22.8 - Constitutional Present: mild distress - Routine HEENT Exam Head: Present: normocephalic, atraumatic Eye: Present: PERRL ENT: Present: mucous membranes dry - Routine Neck Exam Present: supple, full ROM - Routine Respiratory Exam Comments: diminished in the bases without rhonchi or wheezes - Routine Cardiovascular Exam Present: RRR - Routine Abdominal Exam Present: soft, non distended, non tender - Routine Extremities Exam Present: edema - Routine Back/Spine/Pelvis Exam Back/Spine: Present: full ROM - Routine Skin Exam Present: intact, dry - Routine Neurological Exam Present: alert, oriented X3, normal tone, vision grossly intact, hearing grossly intact, normal speech - Routine Psychiatric Exam Present: normal affect, normal thought process Results - Labs CBC & Chem 7: 02/13/18 08:27 02/13/18 08:27 Labs: reviewed carefully above and will be discussed below pCXR with cardiomegaly with no evidence of chf EKG paced CT head without acute process CT righthip no acute fx plain film right knee, without acute process, severe djd Assessment and Plan (1) Vertigo Current visit: Yes Status: Acute (2) Systolic heart failure Current visit: No Status: Acute (3) Arteriosclerotic heart disease (ASHD) Current visit: No Status: Chronic (4) Debility Current visit: No Status: Acute (5) Hip pain, right Current visit: Yes Status: Acute (6) Knee pain, right Current visit: Yes Status: Acute (7) Atrial fibrillation Current visit: No Status: Acute Assessment and Plan: 1. weakness acute POA: patient more anemic. multiple issues including severe ischemic cardiomyopathy and progression of renal failure. Acute change tonight with increased weakness to right hip/knee that is worse than baseline. PT and OT cx. Have held any further diuretic therapy for now, see below. Prognosis is not great 2. near syncope acute POA: patient may be too dry. gentle hydration. hold diuretic therapy. neuro checks, on tele, rule out. DDX; is pre renal, arrhythmia. Have asked for AIcD to be interrogated to exclude arrhythmia. 3. atrial fibrillation not POA; amiodarone, coreg. rate is currently not accelerated. monitor on tele. INR 3 4. normocytic anemia acute POA: chronic anemia worsened. no evidence of acute bleeding. repeat in am. if continue to drop will need to image abdomen to exclude occult bleeding source. Not reverse Coumadin now but will hold Coumadin. 5. CAD chronic POA: rule out on tele as precaution. on b usha, statin. Great risk here. currently denies chest pain. 6. vertigo acute POA: currently difficult to assess cerebellar function. ct head no acute bleed. If continues and family wants more aggressive workup will need to consider MR to exclude post event. Note on Coumadin with therapeutic INR unlikely that patient has had CVA but cannot exclude. 7. acute renal failure on ckd 4: great challenge with ischemic cardiomyopathy. if too dry worsening renal function, if too wet goes into heart failure. typically 100 cc balance. gentle hydration, hold diuretic and repeat labs in the am. 8. normocytic anemia chronic PoA: on iron. will check iron studies. repeat in am. with cardiac ds may need to tx if less than 8. on Coumadin always possible acute blood loss. no signs yet. monitor 9. trop .09 on admission: probable related to kidney ds. cycle 10. DVT ppx; scd, Coumadin pateint is a DNR DVT Prophylaxis: SCD's, Coumadin GI Prophylaxis: Protonix Resuscitation Status: Do Not Resuscitate - Time spent with patient Time with patient PN: 50 minutes - Physician Narrative Physician: César Beckett MD Narrative: Date: 02/13/18 Time: 1145 Have independently interviewed and examined pt. Chart reviewed. Reviewed above note and concur. CC: Dizziness, fall HPI: 87 y/o male presents to [facility] via EMS secondary to fall at home. Occurred at 1800 on 02/12/18-reports right knee gave out and fell. Post fall, not able to get up on own. Notes pain to both knees and also right hip. About 2 hours later developed vertigo while sitting-room spinning, associated nausea. Not had vertigo prior. Functional status and abilities at baseline in days preceding this event. Not feeling chest pressure, heaviness, or palpitations. Breathing stables without cough or congestion. No f/c. Denies sinus pressure or congestion. No ringing in ears or ear pain. Appetite stable, bowels stable. No change in urination. No increased edema. Evaluated in ED. No obvious fracture or dislocation. Not able to get up due to dizziness and knee/hip pain. PMHx: ASCAD, CHF-systolic with EF 10%, Afib, Coumadin anticoagulation, HTN, Type II DM, Stage 4 CKD, GERD, Gout, OA, Prostate CA. PSxHx: see above ALL: see MAR MEDS: see MAR Shx: Resides independently in [facility] in [place]. Quit smoking at ag 57 ( 30 years ago). No current ETOH. FHx: father at 55 of heart failure. Mother at 31 of scarlet fever. Brother at 30 of ETOHism. ROS: as in HPI. Remainder of 10 point ROS discussed and neg Exam GEN: [id number] awake alert. does list to side during interview and exam HEENT: NC/AT PERRLA EOMI MMM Neck: Supple, trachea midline CV: Regular sounding Lungs: decrease breath sounds bilaterally. No crackles or wheeze. Shallow pulmonary excursion, but no distress AB: soft nt/nd +BS EXT: no c/c. +1 edema to BLE NEURO: CN II-XII grossly intact. No focal deficits Psych: awake alert appropriate. Thoughts linear. Skin: warm and dry Assessment Failing pacemaker Vertigo - ? secondary to pacemaker failing, ? labyrinthitis Fall Right hip/knee pain Chronic systolic heart failure Severe ischemic cardiomyopathy with EF 10% ASCAD Chronic afib Anticoagulation with warfarin HTN Type II DM Stage 4 CKD Gait instability Functional decline Plan Inpatient admission to [facility] for treatment of worsening cardiac and renal status. Tele. Enzymes. Hold diuretic. Gentle IVF. Monitor volume status. Continue warfarin for anticoagulation given Afib/cardiomyopathy. Pharm to manage warfarin dosing. Monitor sugars - hold Lantus and Januvia due to worsening renal status to prevent hypoglycemia. PT/OT to help functional status. Monitor lab. DNR as per pt request. Care to return to PCP at time of discharge from [facility]. Hospital Course Summary Disclaimer: The visit summary below is not to be considered part of the above Progress Note.
[2018-02-13] MEDS ORDERED: FALL RISK - PHARMACY CONSULT MC ONE (05:22)
[2018-02-13] MEDS: INSULIN ASPART 100unit/ml INJECTION SQ PRN ×2 (06:31→12:02)
[2018-02-13 07:53] VITALS: O2SAT 99
[2018-02-13] MEDS ORDERED: CARVEDILOL 6.25 MG TABLET PO SCH (08:00)
--- NOTE | 2018-02-13 08:00 | CT Scan Report ---
Indication: r hip pain PROCEDURE: CT hip RT wo con: Encounter: Initial Comparison: None Technique: Axial CT images were performed through the right hip without intravenous contrast. Coronal and sagittal two-dimensional reformats. Automated Exposure Control and Iterative Reconstruction dose reducing techniques were utilized. Findings: No acute fracture identified. Soft tissues of the right pelvis show no acute findings. No hematoma or fluid collection. Mild osteoarthritis in the right hip joint with small osteophytes on the femoral head. Impression: No acute fracture. There is a preliminary report by [facility]. .
--- NOTE | 2018-02-13 08:02 | XRay Report ---
Indication: cough, soa PROCEDURE: XR chest 1V: Encounter: Initial Comparison: January 13, 2018 Findings: The lungs are stable in appearance without new focal airspace consolidation. There is no pleural effusion or pneumothorax. The heart size, pulmonary vascularity and mediastinal contours are unchanged. Left pacemaker defibrillator. Right shoulder replacement. IMPRESSION: Stable appearance of the chest without acute cardiopulmonary disease. .
--- NOTE | 2018-02-13 08:03 | XRay Report ---
Indication: knee pain PROCEDURE: XR knee RT 3V: Encounter: Initial Comparison: None Findings: There is no acute fracture, dislocation or malalignment identified. Severe medial compartment joint space narrowing with meniscal chondrocalcinosis and osteophytes. AP and lateral views are suboptimally positioned with obliquity. Impression: No acute osseous abnormality. .
--- NOTE | 2018-02-13 08:04 | XRay Report ---
Indication: R hip pain, fall PROCEDURE: XR hip RT min 2V: Encounter: Initial Comparison: Right hip CT from the same date Findings: There is no acute fracture, dislocation or malalignment identified. Mild osteoarthritis of the right hip. Arterial vascular calcifications. Impression: No acute osseous abnormality. .
--- NOTE | 2018-02-13 08:07 | CT Scan Report ---
Indication: dizziness, fall PROCEDURE: CT head/brain wo con: Encounter: Initial Comparison: None Technique: Axial CT images through the head were performed without contrast. Iterative Reconstruction dose reducing technique was utilized. FINDINGS: Moderate atrophy. The ventricles are of normal size, shape, and contour for the patient's age. There are scattered areas of low attenuation in the white matter which most likely represent changes from chronic microvascular ischemia. The brainstem, cerebellum, and cerebral hemispheres otherwise have a normal morphology and CT attenuation. There is no evidence of midline displacement. No hemorrhage, signs of acute territorial stroke, mass effect, mass lesions, or edema is evident. The visualized portions of the skull base, midface, and calvarium demonstrate no abnormality. The paranasal sinuses are well aerated and free of significant disease. The tympanic and mastoid cavities appear normal. Large Drusen noted in the globes. IMPRESSION: No acute intracranial abnormality or hemorrhage. There is a preliminary report by [facility]. .
[2018-02-13] MEDS ORDERED: POLYETHYL GLYCOL 3350 17gm PACKET PO SCH (09:00)
[2018-02-13] MEDS ORDERED: AMIODARONE 200 MG TABLET PO SCH (09:00)
[2018-02-13] MEDS ORDERED: ALBUTEROL/IPRATROPIUM 2.5mg-0.5mg/3ml NEB AEROSOL SCH (11:00)
[2018-02-13] MEDS ORDERED: WARFARIN - PHARMACY CONSULT MC ONE (11:22)
--- NOTE | 2018-02-13 11:32 | XRay Report ---
Indication: soa PROCEDURE: XR chest 1V: Encounter: Initial Comparison: February 12, 2018 Findings: Lungs are stable and grossly clear. No pleural effusion or pneumothorax. Cardiac silhouette remains enlarged. Left pacemaker defibrillator. Mediastinal contours and pulmonary vascularity are stable. Old right rib fractures. Right shoulder replacement. Impression: Stable chest without acute cardiopulmonary disease. .
--- NOTE | 2018-02-13 11:47 | Discharge Summary ---
Discharge Information Date of admission: 02/13/18 01:50 Anticipated date of discharge: 02/13/18 Attending Physician: César Beckett MD Primary care physician: Panfilo Villa MD Consults: none - Discharge Diagnosis (1) Vertigo Status: Acute (2) Debility Status: Acute (3) Atrial fibrillation Status: Acute (4) Systolic heart failure Status: Acute (5) Arteriosclerotic heart disease (ASHD) Status: Chronic (6) Hip pain, right Status: Acute (7) Knee pain, right Status: Acute Admission diagnosis Vertigo - ? secondary to pacemaker failing, ? labyrinthitis Fall Right hip/knee pain Discharge diagnosis Atrial and right ventricular lead failure. Currently LV paced. Associated conditions and complications S/P fall 02/12/18 at home with resultant right hip and knee pain (imaging negative ) Acute renal failure on CKD stage IV (baseline creatinine averages 2.5) Weakness Vertigo CHF - chronic systolic heart failure Coronary artery disease Atrial fibrillation Anticoagulation with warfarin HTN Type II DM Chronic normocytic anemia Gait instability Functional decline - Laboratory Labs: Admission Labs 02/12/18 02/12/18 22:14 23:35 WBC 9.6 RBC 2.52 L Hgb 8.0 L Hct 24.7 L MCV 98.0 MCH 31.7 MCHC 32.4 RDW Std Deviation 55.1 H Plt Count 143 Sodium 142 Potassium 4.5 Chloride 103 Carbon Dioxide 22 Anion Gap 17 H BUN 81.0 H* Creatinine 3.1 H GFR Calculation 19 BUN/Creatinine Ratio 26 Glucose 153 H Calculated Osmolality 300 H Total Bilirubin 1.30 AST 40 ALT 32 Alkaline Phosphatase 135 H Total Protein 7.1 Albumin 4.1 Globulin 3.0 Albumin/Globulin Ratio 1.4 Dismissal labs 02/13/18 02/13/18 02/13/18 02:54 08:27 08:27 WBC 5.9 RBC 3.34 L Hgb 10.4 L D Hct 33.0 L D MCV 98.8 MCH 31.1 MCHC 31.5 RDW Std Deviation 57.4 H Plt Count 105 L Sodium 140 Potassium 4.0 Chloride 106 Carbon Dioxide 22 Anion Gap 12 BUN 78.0 H* Creatinine 2.9 H D GFR Calculation 21 BUN/Creatinine Ratio 27 H Glucose 113 H Calculated Osmolality 293 H Calcium 9.2 Magnesium 2.3 Iron Pending TIBC Pending % Saturation Pending Ferritin Pending TSH 2.51 INR 02/12/18 23:35 INR 3.34 H Troponin trend 02/12/18 02/13/18 02/13/18 23:35 02:54 08:27 Troponin I 0.091 0.102 0.083 BNP 02/13/18 08:27 NT-Pro-B Natriuret Pep 7450 H - Radiology Radiology: = = = = = = = = = = = = = = = = = = = = = = = = = = = = = = = = = = = = = = = = = = = = = = = = = = = = = = = = = = = Date of Exam: 02/13/18 Indication: soa PROCEDURE: XR chest 1V: Findings: Lungs are stable and grossly clear. No pleural effusion or pneumothorax. Cardiac silhouette remains enlarged. Left pacemaker defibrillator. Mediastinal contours and pulmonary vascularity are stable. Old right rib fractures. Right shoulder replacement. Impression: Stable chest without acute cardiopulmonary disease. = = = = = = = = = = = = = = = = = = = = = = = = = = = = = = = = = = = = = = = = = = = = = = = = = = = = = = = = = = = Date of Exam: 02/12/18 Indication: dizziness, fall PROCEDURE: CT head/brain wo con: FINDINGS: Moderate atrophy. The ventricles are of normal size, shape, and contour for the patient's age. There are scattered areas of low attenuation in the white matter which most likely represent changes from chronic microvascular ischemia. The brainstem, cerebellum, and cerebral hemispheres otherwise have a normal morphology and CT attenuation. There is no evidence of midline displacement. No hemorrhage, signs of acute territorial stroke, mass effect, mass lesions, or edema is evident. The visualized portions of the skull base, midface, and calvarium demonstrate no abnormality. The paranasal sinuses are well aerated and free of significant disease. The tympanic and mastoid cavities appear normal. Large Drusen noted in the globes. IMPRESSION: No acute intracranial abnormality or hemorrhage. = = = = = = = = = = = = = = = = = = = = = = = = = = = = = = = = = = = = = = = = = = = = = = = = = = = = = = = = = = = Date of Exam: 02/12/18 Indication: R hip pain, fall PROCEDURE: XR hip RT min 2V: Findings: There is no acute fracture, dislocation or malalignment identified. Mild osteoarthritis of the right hip. Arterial vascular calcifications. Impression: No acute osseous abnormality. = = = = = = = = = = = = = = = = = = = = = = = = = = = = = = = = = = = = = = = = = = = = = = = = = = = = = = = = = = = Date of Exam: 02/12/18 Indication: knee pain PROCEDURE: XR knee RT 3V: Findings: There is no acute fracture, dislocation or malalignment identified. Severe medial compartment joint space narrowing with meniscal chondrocalcinosis and osteophytes. AP and lateral views are suboptimally positioned with obliquity. Impression: No acute osseous abnormality. = = = = = = = = = = = = = = = = = = = = = = = = = = = = = = = = = = = = = = = = = = = = = = = = = = = = = = = = = = = Date of Exam: 02/13/18 Indication: r hip pain PROCEDURE: CT hip RT wo con: Findings: No acute fracture identified. Soft tissues of the right pelvis show no acute findings. No hematoma or fluid collection. Mild osteoarthritis in the right hip joint with small osteophytes on the femoral head. Impression: No acute fracture. There is a preliminary report by [facility]. History of Present Illness HPI: This is a 87 y/o male that lives independently @ [facility] He apparently has been having increased weakness. Today his right leg gave out and he was unable to get up. He contacted his daughter and son in law who presented to help him get up. He continued to be weak and had significant right knee and hip pain. He presented to the ED and an orthopedic evaluation demonstrated no CT evidence of hip fx and severe OA of the right knee without fx. The patient' s metabolic workup was c/w with chronic stage 4 kidney disease with somewhat worsening of his cr. The patient's vitals were stable. INR is 3.3 Patient is more anemic now with hg down from 10 to 8 with normal MCV. The patient denies any blood in stool or urine. The patent at this time is too weak to go home . He is currently on Bumex for presumed diastolic dysfunction. For complete details of the H&P refer to that document. Objective Vital signs: Temperature 97.6 F 02/13/18 07:53 Pulse Rate 60 02/13/18 09:00 Respiratory Rate 20 02/13/18 05:09 Blood Pressure 133/76 02/13/18 08:55 Pulse Oximetry 99 02/13/18 07:53 Height/Weight/BMI: Height 1.8 m Weight 75.9 kg Body Mass Index 22.8 - Constitutional Present: no acute distress, well nourished, well developed - Routine HEENT Exam Head: Present: normocephalic, atraumatic - Routine Respiratory Exam Comments: no distress. Few diffuse wheezes and coarse sounds. - Routine Cardiovascular Exam Present: RRR, no murmur - Routine Abdominal Exam Present: soft, non distended, non tender - Routine Extremities Exam Present: edema (tr), normal capillary refill - Routine Skin Exam Present: dry, warm - Routine Neurological Exam Present: alert, oriented X3 - Routine Lymphatic Exam Lymphatic: Absent: adenopathy - Routine Psychiatric Exam Present: normal affect (appears tired), cooperative Hospital Course This is a general summary of the patient's hospital course. For more details refer to the complete medical record. Hospital course: Patient was admitted through the emergency room last night following a fall at home resulting in right hip and knee pain. Patient's imaging was negative, but labs showed acute kidney injury on CKD and a hgb of 8 w/ his last hgb being 10.4 less than a month ago. He was hospitalized for monitoring of his hgb and gentle hydration for RODRIGUE. His hgb this am was up to 10.4 and kidney function improved some as well. His AICD was interrogated and his atrial and RV leads are not functioning . He is solely LV paced at this time. This was discussed with Dr. Choe who requests he be transferred to [facility] for direct admit. Pt and family are agreeable. Pt's Coumadin has been on hold since admission. Time spent with patient: discharge greater than 30 minutes Resuscitation Status: Do Not Resuscitate Discharge Plan - Discharge Disposition Discharge Date: 02/13/18 Disposition: 02 Acute Care Hosp, Other *Condition: Stable Reason For Visit (Visit label in EMR): Fell,weakness - Discharge Medications *Discharge Medications: Continue Amiodarone [Pacerone] 200 mg PO BID Oxycodone HCl 5 mg PO Q6HR PRN PRN Reason: Pain Calcium Carb/Vit D3/Minerals [Calcium 600+D Plus Minerals Tb] 1 each PO DAILY Acetaminophen 650 mg PO Q4HR PRN PRN Reason: Pain Docusate Sodium [Colace] 1 cap PO DAILY Folic Acid 0.8 mg PO DAILY Febuxostat [Uloric] 40 mg PO DAILY Bumetanide 1 mg PO BID #30 Potassium Chloride [MICRO-K 10 mEq Capsule] 10 meq PO BIDWM #30 Sennosides [Ex-Lax Maximum Strength] 25 mg PO HS PRN tab PRN Reason: Constipation Sitagliptin [Januvia] 25 mg PO DAILY tab Blood Sugar Diagnostic [Glucose Test Strip] 1 each MC BID #60 strip Insulin Glargine,Hum.rec.anlog [Lantus Solostar] 6 unit SQ HS #1 insuln.pen Atorvastatin [Lipitor] 1 tab PO HS #30 tab Ferrous Sulfate [Iron] 325 mg PO QDRHS Melatonin/Pyridoxine HCl (B6) [Melatonin 3 mg Tablet] 3 mg PO HS Omeprazole [Prilosec] 20 mg PO DAILY Carvedilol [Coreg] 1 tab PO BIDWM Doxepin [Sinequan] 10 mg PO HS Discontinued Warfarin [Coumadin] 2.5 mg PO NOON #30 tab - Discharge Packet/Instructions *Diet: NPO until new orders from Dr. Choe *Activity: As curly. No reaching overhead with L arm. *Pain Management/Treatment: Tylenol *Wound Care: n/a Additional Instructions: You are being transferred to [facility] for direct admission by Dr. Choe for repositioning of your pacemaker leads. Coumadin is on hold. *Notify Physician if: n/a *During Business Hours Contact: n/a *After Business Hours Contact: n/a *Pending Lab/Results: Follow up w/your PCP (iron studies) - Referrals/Follow Up *Referrals/Follow Up: Panfilo Villa MD [Primary Care Provider] - (after [facility]) - Patient Handouts - Dismissal Complete Discharge Instructions are:: Complete Physician Narrative - Narrative Physician: César Beckett MD Attestation Narrative: Date: 02/13/18 Time: 1300 I have independently interviewed and examined patient prior to discharge. See my H&P for details. Medically stable for discharge to acute care hospital.
[2018-02-13 12:18] VITALS: BP 115/65; PULSE 59; TEMP 96
[2018-02-13 12:22] VITALS: RESP 16
--- NOTE | 2018-02-13 13:08 | Pharmacy Consult ---
Pharmacy Consult-Warfarin - Laboratory Information 02/13/18 08:27 Hgb 10.4 L D Hct 33.0 L D - Consult Information COUMADIN CONSULT (Initial): Dx: A. Fib Baseline INR = 3.34. Will give no Warfarin today. Pt on amiodarone which may interact with warfarin. We will dose accordingly. NOTE MADE IN "DOCUMENT" IN EMR. Thank you.
[2018-02-13 14:28] VITALS: BMI 23.3
[2018-02-13] MEDS ORDERED: ATORVASTATIN 10 MG TABLET PO SCH (21:00)
== END 2018-02-13 13:50 | disposition short-term general hospital (02) | DRG 149 ==
LOC: ED 21:59 → EDHOLD 02-13 01:50 → MED 02-13 02:10
PROVIDERS: ADMIT Emergency Medicine; ATTEND Hospitalist

== ENCOUNTER 2018-02-19 15:08 | Inpatient (IN) ==
[2018-02-19] MEDS ORDERED: GUAIFENESIN LA 600 MG TABLET PO PRN (16:11)
[2018-02-19] MEDS ORDERED: SENNOSIDES 25 MG PO PRN (16:12)
[2018-02-19] MEDS ORDERED: DEXTROSE 50% SYRINGE 50ml (1 AMP) IVP PRN (16:19)
[2018-02-19] MEDS ORDERED: GLUCOSE ORAL GEL 40% 37.5gm PO PRN (16:19)
--- NOTE | 2018-02-19 16:27 | IRU History & Physical Report ---
HPI U Date: Date: 02/19/18 Time: 1627 Chief complaint: I'm weak HPI: Mr. Angel is a very pleasant 87-year-old male who was previously on inpatient rehabilitation earlier this year. Referring physician is Maryam Choe MD. His primary care provider is Panfilo Villa MD. He had undergone new lead placement as well as generator change (AICD) on 01/10/[address] Choe. He had a previous AV leonardo ablation in September 2017. He also has history of myocardial infarction and stent placement a number of years ago. He was on acute inpatient rehabilitation from January 16 through January 26, 2018 for CHF -related myopathy. He was dismissed at that time and was moved to independent living on the campus of [facility]. At that time he was felt to be stable and was sent to his independent living apartment with home health assistance. Since that time on 02/13/2018 he fell at home. He reports that he had been doing quite well and is independent living apartment until this time. He had come inside to get a drink of water. When he was standing there, his right knee "gave out." He fell to the floor resulting in pain in the right hip and right knee. This also resulted in several abrasions. He was brought to the emergency department for evaluation. He had been unable to get up off the floor. He experienced vertigo, shortness of breath and reported a tightness to his forehead. He was again admitted to the [facility]. He complained of knee and hip pain in the ED and imaging failed to reveal a fracture. AICD interrogation showed the possibility that his atrial and right ventricular leads were not functioning. He was solely left ventricular paced. His valve tester was consulted and recommended transfer back to [facility] for further assessment. However, subsequent evaluation of the EKG showed AV paced rhythm and assessment indicated no major changes from previous consultation. Therefore at this time no further intervention was undertaken. He reports that his vertigo is improving. The pressure in the forehead seems to be occurring at the same time as the vertigo. He denies shortness of breath at present. Denies any chest pains. However, he has sustained multiple functional deficits from the fall and is quite debilitated at the present time. In addition his creatinine has become elevated at 3.2 with prior creatinine around 2.6. He does have history of diabetes mellitus and is on oral agents. He does have a reported ejection fraction of 10%. He has been living in his independent apartment on the campus of [facility]. Recent evaluation in [place] on 02/13/2019 demonstrated a chest x-ray with cardiomegaly without overt CHF. His Bumex has been decreased to 0.[address] of head on 02/18/2018 showed no new ischemic areas. Carotid Doppler study 02/16/2018 showed no significant stenoses bilaterally. Prior level of functioning indicates that he was mostly independent for activities although was modified independent for bathing. He was modified independent for toileting as well as transfers. Current level of functioning indicates that he is independent for eating and grooming but requires moderate assistance for bathing, lower body dressing and toileting. He requires minimum assistance for walking with a rolling walker 60 feet. Previously he could walk with a rolling walker over 200 feet. The following medical conditions are noted and require active monitoring and/or management: 1. Acute on chronic debilitation 2. Chronic systolic CHF with EF reportedly 10% 3. DM Type II, on oral agents 4. CKD with acute kidney injury (baseline creatinine 2.6 and now it is 3.2 in [place].) 5. Atrial fibrillation: His INR reportedly is supratherapeutic and for this reason warfarin is being held. It will need to be restarted at some point. 6. History of hypertension with some episodes of hypotension 7. Vertigo: On tapering dose of meclizine The following therapies will be needed: 1. Physical therapy: for transfers and ambulation and stairs. 2. Occupational therapy: for ADL's and transfers. 3. Medical management: for the above conditions. 4. 24 hour Rehabilitation Nursing to monitor and address the following: Patient will require close monitoring of his blood sugars to avoid hypoglycemia. He will require cardiac monitoring with regard to his CHF. He requires monitoring of his blood pressures as well as monitoring of his heart rhythm clinically. [facility] Patient Stated Medical History Cataracts Yes Cardiac Arrhythmia Yes: A-FIB Congestive Heart Failure Yes Hypertension Yes Myocardial Infarction Yes Diabetes Mellitus Type 2 Yes Constipation Yes Gastroesophageal Reflux Yes Disease Other GI hernia repair Hx Incontinence No Hx Renal Disease Yes: STAGE IV Clotting Problems Yes: not on coumadin now Medical History Updates: 1. Systolic heart failure with reported ejection fraction 10%. 2. Benign essential hypertension. 3. Atherosclerotic heart disease status post myocardial infarction. 4. A-fib. 5. Diabetes mellitus type 2 not on prison insulin, with vascular complications of heart disease. 6. GERD. 7. Chronic kidney disease stage IV. 8. Coagulopathy secondary to use of Coumadin. 9. Gout. 10. Prostate cancer Surgical History: 1. Cardiac stent x2 placement after myocardial infarction early 2005. 2. Permanent pacemaker placement 2008, revision and AICD placement 2010, revision and new AICD placement 2016, new AICD and lead placement 2017. 3. AV ablation 2016. 4. Bilateral cataract procedure. 5. Cervical and lumbar spine surgery. 6. Appendectomy. 7. Tonsillectomy. 8. Umbilical hernia repair. 9. Right total shoulder replacement. 10. Left total knee replacement Family History: Patient's father of "heart failure" age 55. Mother of scarlet fever age 31. Family History Updates: non contributory - Social History Smoking status: Former smoker (started smoking at age 10 stopping at age 57. 2 packs daily.) Packs-years: 80 Substance use type: does not use Alcohol intake: former (occasional mixed drinks in the past. Last intake 2001) Alcohol intake frequency: does not drink Housing: house Household members: none Current occupational status: retired Current residence: Apartment/Private Home Social history: Patient formerly lived at [facility]. 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 Recently he has moved back to the [place] area and is living in an independent living apartment area. Review of Systems - Constitutional Constitutional: Present: fatigue, weakness. Absent: anorexia, chills, fever(s) , headache(s), lethargy, malaise, night sweats, weight gain, weight loss - EENMT Eyes: Absent: blurry vision, change in vision, diplopia Mouth/Throat: Absent: changes in swallowing, painful swallowing, change in taste , bleeding gums, change in voice - Cardiovascular Cardiovascular: Absent: chest pain, palpitations, syncope, dyspnea on exertion, orthopnea, edema, cyanosis, heart murmur Rhythm: Present: abnormal rhythm Vascular: Absent: intermittent claudication, pedal edema, unilateral swelling - Respiratory Respiratory: Absent: cough, dyspnea, hemoptysis, dyspnea on exertion, wheezing, pain on inspiration, chest congestion, excessive phlegm production - Gastrointestinal Gastrointestinal: Absent: abdominal pain, change in bowel habits, constipation, diarrhea, dyspepsia, dysphagia, early satiety, hematochezia, melena, nausea, vomiting - Musculoskeletal Musculoskeletal: Absent: abnormal gait, arthralgias, back pain, joint swelling, limited range of motion, muscle weakness - Integumentary/Breasts Integumentary: Present: wounds (has one abrasion on left leg and 2 on right leg. Has 1 or 2 on the arms on the right side as well.). Absent: alopecia, erythema, lesions, pruritus, rash, jaundice - Neurological Neurological: Present: weakness. Absent: abnormal gait, abnormal movements, abnormal speech, confusion, convulsions, dizziness, focal weakness, frequent falls, headache(s), loss of vision, memory loss, numbness, paresthesias, tremor( s) - Psychiatric Psychiatric: Absent: abnormal sleep pattern, anxiety, depression - Endocrine Endocrine: Absent: cold intolerance, flushing, heat intolerance, palpitations - Hematologic/Lymphatic Hematologic/Lymphatic: Absent: easy bleeding, easy bruising, lymphadenopathy - Allergic/Immunologic Allergic/Immunologic: Absent: urticaria Medications Home Medications Medication Instructions Recorded Confirmed Type Amiodarone [Pacerone] 200 mg PO BID 11/19/17 02/19/18 History Omeprazole [Prilosec] 20 mg PO DAILY 11/19/17 02/19/18 History Acetaminophen 650 mg PO Q4HR PRN 01/16/18 02/19/18 History Calcium Carb/Vit D3/Minerals 1 each PO DAILY 01/16/18 02/19/18 History [Calcium 600+D Plus Minerals Tb] Docusate Sodium [Colace] 1 cap PO DAILY 01/16/18 02/19/18 History Doxepin [Sinequan] 10 mg PO HS 01/16/18 02/19/18 History Febuxostat [Uloric] 40 mg PO DAILY 01/16/18 02/19/18 History Folic Acid 0.8 mg PO DAILY 01/16/18 02/19/18 History Oxycodone HCl 5 mg PO Q6HR PRN 01/16/18 02/19/18 History Sitagliptin [Januvia] 25 mg PO DAILY tab 01/25/18 02/19/18 Rx Atorvastatin [Lipitor] 1 tab PO HS #30 tab 01/26/18 02/19/18 Rx Blood Sugar Diagnostic [Glucose 1 each MC BID #60 strip 01/26/18 02/19/18 Rx Test Strip] Insulin Glargine,Hum.rec.anlog 6 unit SQ HS #1 insuln.pen 01/26/18 02/19/18 Rx [Lantus Solostar] Ferrous Sulfate [Iron] 325 mg PO DAILY 02/12/18 02/19/18 History Melatonin/Pyridoxine HCl (B6) 3 mg PO HS 02/12/18 02/19/18 History [Melatonin 3 mg Tablet] Bumetanide Tab [Bumex 0.5 mg Tab] 0.5 mg PO BID 02/19/18 02/19/18 History Carvedilol [Coreg] 1 tab PO BIDWM 02/19/18 02/19/18 History Meclizine [Antivert] 1 tab PO TID 02/19/18 02/19/18 History Potassium Chloride [MICRO-K 10 mEq 10 meq PO DAILY 02/19/18 02/19/18 History Capsule] PredniSONE [Deltasone 5 mg] 5 mg PO WB 02/19/18 02/19/18 History Sennosides [Ex-Lax Maximum 25 mg PO DAILY PRN 02/19/18 02/19/18 History Strength] guaiFENesin [Mucinex] 600 mg PO BID PRN 02/19/18 02/19/18 History Allergies Allergy/AdvReac Type Severity Reaction Status Date / Time finasteride Allergy Intermediate Rash Verified 02/19/18 16:08 hydromorphone Allergy Unknown combative Verified 02/19/18 16:08 nitrofurantoin Allergy Unknown Nausea and Verified 02/19/18 16:08 Vomiting Poultry Allergy Unknown Verified 02/19/18 16:08 Results IRU - Labs Labs: Have reviewed chart data from transfer records. Exam Vital Signs: Temperature 97.9 F 02/19/18 15:58 Pulse Rate 59 L 02/19/18 15:58 Respiratory Rate 14 02/19/18 15:58 Blood Pressure 117/62 02/19/18 15:58 Pulse Oximetry 100 02/19/18 15:58 Height/Weight/BMI: Height 1.8 m Weight 73.7 kg Body Mass Index 22.6 - Constitutional Present: no acute distress, well nourished, well developed, average body habitus , cooperative - Routine HEENT Exam Head: Present: normocephalic, atraumatic. Absent: cushingoid faces, abrasion, laceration, hematoma Eye: Present: EOMI, PERRL. Absent: conjunctival icterus, scleral injection, periorbital swelling, nystagmus ENT: Present: mucous membranes moist, oropharynx clear - Routine Neck Exam Present: supple, full ROM, trachea midline. Absent: lymphadenopathy, thyromegaly, tenderness, swelling - Routine Chest/Breast/Axilla Exam Chest wall: Absent: tenderness, mass Axillae: Absent: lymphadenopathy, mass - Routine Respiratory Exam Present: CTA bilaterally. Absent: accessory muscle use, decreased breath sounds , prolonged expiratory phase, rales, respiratory distress, rhonchi, stridor, wheezes, crackles, distant breath sounds - Routine Cardiovascular Exam Present: RRR, S1, S2, no murmur. Absent: gallop, S3, S4, click, irregular rhythm Comments: Has history of atrial fibrillation but sounds as though he is in a regular mechanism at present, likely secondary to the pacemaker. - Routine Abdominal Exam Present: soft, normoactive bowel sounds, non distended, non tender. Absent: rebound, guarding, firm, rigid, organomegaly, mass, hernia, wound - Routine Extremities Exam Present: no edema, non tender, pulses intact, normal capillary refill. Absent: cyanosis, clubbing - Routine Back/Spine/Pelvis Exam Back/Spine: Present: full ROM. Absent: scoliosis, kyphosis - Routine Skin Exam Present: intact, dry, warm, wounds (has a stage II ulcer involving the left lower extremity below the knee on the medial [place] area. Has stage I ulcers right lower extremity below the knee and further down the medina.). Absent: cyanosis, erythema, pallor, mottling, petechiae, urticaria, lesions, jaundice - Routine Neurological Exam Present: alert, oriented X3, CN II-XII intact, moving all extremities, normal speech - Routine Psychiatric Exam Present: normal affect, normal thought process, cooperative, good insight, good judgment. Absent: depressed, anxious Sepsis Assessment - Evaluation Severe Sepsis: none seen IRU A/P (1) Debility Current visit: No Status: Acute Since his fall and hospitalization he has sustained significant functional deficits which will require a multidisciplinary approach. (2) Atrial fibrillation Qualifiers: Atrial fibrillation type: permanent Qualified Code(s): I48.2 - Chronic atrial fibrillation Current visit: No Status: Chronic Patient has been on warfarin but reportedly has supratherapeutic INR. We will reassess his INR and ask pharmacy to monitor dosing of his warfarin. (3) Hip pain, right Current visit: No Status: Acute Has discomfort in the right hip although it is improving. Radiographic studies have been negative for fracture. (4) Knee pain, right Qualifiers: Chronicity: acute Qualified Code(s): M25.561 - Pain in right knee Current visit: No Status: Acute His right knee pain is improving since the fall but still is present. (5) Systolic heart failure Qualifiers: Heart failure chronicity: acute on chronic Qualified Code(s): I50.23 - Acute on chronic systolic (congestive) heart failure Current visit: No Status: Chronic Has reported ejection fraction of 10%. Has a biventricular assist device with AICD. (6) Vertigo Current visit: No Status: Acute Patient has had vertigo since his fall. It is slowly improving. He is on a tapering dose of meclizine. (7) Arteriosclerotic heart disease (ASHD) Current visit: No Status: Chronic DVT Prophylaxis: SCD's, Coumadin Resuscitation Status: Do Not Resuscitate - Course Hospital Course: Ulysses Peoples MD: - Interventions to Obtain Goals PT Treatment Plan: Balance/Proprioception, Functional Activities, Gait Training , Patient/Family Education OT Treatment Plan: ADL (Basic Care), Balance Training, IADL, Pt./Family Education Goals Progress/Modifications: This patient has sustained multiple functional deficits since his fall and hospitalization. He has a very low ejection fraction. His exercise tolerance is poor. In addition, he has several wounds which have been sustained as a result of the fall. He has a history of diabetes mellitus which will require close blood sugar monitoring.
[2018-02-19] MEDS ORDERED: FALL RISK - PHARMACY CONSULT MC ONE (16:30)
[2018-02-19] MEDS ORDERED: WARFARIN - PHARMACY CONSULT MC ONE (16:49)
--- NOTE | 2018-02-19 17:16 | IRU 24Hr Post Admit Eval ---
24 Hr Post Admission Physical - Relevant Changes Relevant Changes: No Reviewed: I have reviewed the patient's information and concur with the finding and results of the pre-admission screen. Certification: I certify the patient for rehabilitation. - Patient Condition (1) Debility Status: Acute Code(s): R53.81 - Other malaise Classification: Present on IRF Admission, IRF Tx That Should Address Diagnosis, Diagnosis Requiring Medical Follow Up (2) Atrial fibrillation Status: Chronic Qualifiers: Atrial fibrillation type: permanent Qualified Code(s): I48.2 - Chronic atrial fibrillation Code(s): I48.91 - Unspecified atrial fibrillation Classification: Present on IRF Admission, IRF Tx That Should Address Diagnosis, Diagnosis Requiring Medical Follow Up (3) Hip pain, right Status: Acute Code(s): M25.551 - Pain in right hip Classification: Present on IRF Admission, IRF Tx That Should Address Diagnosis, Diagnosis Requiring Medical Follow Up (4) Knee pain, right Status: Acute Qualifiers: Chronicity: acute Qualified Code(s): M25.561 - Pain in right knee Code(s): M25.561 - Pain in right knee Classification: Present on IRF Admission, IRF Tx That Should Address Diagnosis, Diagnosis Requiring Medical Follow Up (5) Systolic heart failure Status: Chronic Qualifiers: Heart failure chronicity: acute on chronic Qualified Code(s): I50.23 - Acute on chronic systolic (congestive) heart failure Code(s): I50.20 - Unspecified systolic (congestive) heart failure (6) Vertigo Status: Acute Code(s): R42 - Dizziness and giddiness Classification: Present on IRF Admission, IRF Tx That Should Address Diagnosis, Diagnosis Requiring Medical Follow Up (7) Arteriosclerotic heart disease (ASHD) Status: Chronic Code(s): I25.10 - Atherosclerotic heart disease of [place] coronary artery without angina pectoris Classification: Present on IRF Admission, Diagnosis Requiring Medical Follow Up - Prior Functional Status Lives With: Alone Residence Type: Independent Living Assitive Devices: Four Wheeled Walker Prior Functional Status: Indep. at home or school, Used assistive device, Depend. w/ IADL - Current Functional Status Current Level of Function: Current level of functioning indicates that he is independent for eating and grooming but requires moderate assistance for bathing, lower body dressing and toileting. He requires minimum assistance for walking with a rolling walker 60 feet. Previously he could walk with a rolling walker over 200 feet. Failed Alternative Therapy: Arrived from Acute Care Patient Requirements: The patient requires oversight by rehabilitation physician to manage their rehabilitation treatment plan and multidisciplinary approach to care that can only be provided in an IRF and requires a multidisciplinary approach to care, provided by professional PTs, OTs, STs, dieticians, RTs, rehabilitation nurses and is not available in lesser levels of care. Limitations Req: Mobility Impairment, ADL Impairment Physical Therapy Minutes: 90 Occupational Therapy Minutes: 90 Therapy: The patient is to receive therapy at least 5 days a week. - Complications/Comorbidities Impact on Functional Outcomes: The patient's recent fall with debilitation as well as right knee and right hip pain along with his underlying severe congestive heart failure will negatively impact his functional outcome. Barriers to Discharge: Weakness, Balance, Endurance - Plan to Avoid Complications Plan to Avoid Complications: The patient cannot receive this care in a lesser intensive setting such as Penitentiary or Outpatient Therapy due to the patient requiring the following : This medically complex patient has severe reduction in his ejection fraction resulting in poor exercise tolerance. He requires close monitoring of his blood pressures, atrial fibrillation, wound care in view of the recent fall and abrasions and monitoring of his cardiac status. He requires a multidisciplinary approach with physical therapy, occupational therapy and 24 hour rehabilitation nursing monitoring with medical supervision. .
[2018-02-19] MEDS: CARVEDILOL 25 MG TABLET PO SCH (18:21)
[2018-02-19] MEDS: INSULIN ASPART 100unit/ml INJECTION SQ PRN ×2 (18:22→20:58)
[2018-02-19] MEDS ORDERED: WARFARIN 4 MG TABLET PO ONE (20:04)
[2018-02-19] MEDS: AMIODARONE 200 MG TABLET PO SCH (20:56)
[2018-02-19] MEDS: MELATONIN 1 MG TABLET PO SCH (20:57)
[2018-02-19] MEDS: ENOXAPARIN 80 MG/0.8 ML INJECTION SQ SCH (20:57)
[2018-02-19] MEDS: MECLIZINE 12.5 MG TABLET PO SCH (20:57)
[2018-02-19] MEDS: DOXEPIN 10 MG CAPSULE PO SCH (20:57)
[2018-02-19] MEDS: ATORVASTATIN 10 MG TABLET PO SCH (20:57)
[2018-02-19] MEDS: INSULIN GLARGINE 100unit/ml INJECTION SQ SCH (20:58)
[2018-02-19] MEDS ORDERED: BUMETANIDE 0.5 MG TABLET PO SCH (21:00)
[2018-02-19] MEDS ORDERED: BLOOD SUGAR DIAGNOSTIC MC SCH (21:00)
[2018-02-20] MEDS: OMEPRAZOLE 20 MG CAPSULE PO SCH (06:04)
[2018-02-20] MEDS: PredniSONE 5 MG TABLET PO SCH (08:56)
[2018-02-20] MEDS: CARVEDILOL 25 MG TABLET PO SCH ×2 (08:56→18:05)
[2018-02-20] MEDS: CALCIUM 600 + VIT D 400 TABLET PO SCH (08:56)
[2018-02-20] MEDS: FOLIC ACID 1 MG TABLET PO SCH (08:57)
[2018-02-20] MEDS: FEBUXOSTAT 40 MG TABLET PO SCH (08:57)
[2018-02-20] MEDS: BUMETANIDE 0.5 MG TABLET PO SCH ×2 (08:57→15:19)
[2018-02-20] MEDS: AMIODARONE 200 MG TABLET PO SCH ×2 (08:57→22:02)
[2018-02-20] MEDS: SITAGLIPTIN 100 MG TABLET PO SCH (08:57)
[2018-02-20] MEDS: MECLIZINE 12.5 MG TABLET PO SCH ×3 (08:57→22:02)
[2018-02-20] MEDS ORDERED: BUMETANIDE 0.5 MG TABLET PO SCH (09:00)
[2018-02-20] MEDS ORDERED: FERROUS SULFATE 324 MG TABLET PO SCH (09:00)
--- NOTE | 2018-02-20 10:20 | Pharmacy Consult ---
Pharmacy Consult-Warfarin - Laboratory Information 02/19/18 02/20/18 02/20/18 18:24 04:19 04:19 Hgb 10.1 L Hct 32.5 L INR 1.35 H 1.32 H - Consult Information COUMADIN CONSULT (Initial): Dx: Admitted for DEBILITATION. Atrial fibrillation HW is a very pleasant 87-year-old male who was previously on inpatient rehabilitation earlier this year. Since that time on 02/13/2018 he fell at home. He reports that he had been doing quite well and is independent living apartment until this time. He had come inside to get a drink of water. When he was standing there, his right knee "gave out." He fell to the floor resulting in pain in the right hip and right knee. This also resulted in several abrasions. His INR reportedly is supratherapeutic and for this reason warfarin is being held. It will need to be restarted at some point. Date INR Dose 02/19 1.35 4 mg 02/20 1.32 5 mg I will continue the patient's warfarin with a dose of Warfarin 5 mg today. The patient is currently on Enoxaparin 70 mg sq bid. The pharmacy will continue to monitor the INR's and adjust the Warfarin accordingly. Thanks, Deondre Perez, Pharmacist.
[2018-02-20] MEDS: ENOXAPARIN 80 MG/0.8 ML INJECTION SQ SCH (10:31)
[2018-02-20] MEDS: DOCUSATE SODIUM 100 MG CAPSULE PO SCH (10:31)
[2018-02-20] MEDS ORDERED: WARFARIN 5 MG TABLET PO SCH (12:00)
--- NOTE | 2018-02-20 13:53 | Consult Note ---
Consult Information - Data of Consult Consult date: 02/20/18 Requesting Physician: Ulysses Peoples MD Primary Care Provider: Panfilo Villa MD - Consult Narrative Reason for consult: CHF, CKD History of present illness: Mr. Angel is seen in consultation from Dr. Peoples for medical management. He was previously admitted to IRU in Jan, 2018 for CHF-related myopathy. He was discharged home on 01/26/18 but sustained a fall on 02/13/18 after his knee gave out. At that time he was reported to have vertigo, dyspnea, and forehead tightness as well as right knee/hip pain. He was admitted to [facility] and during evaluation his AICD was interrogated. This revealed concerns that the atrial and right ventricular leads were not functioning, and he was transferred to [facility] under the care of Dr. Choe, his allergist/immunologist physician. CXR there showed cardiomegaly without CHF. He also had a negative head CT and carotid doppler that was negative for significant stenosis. He has a history of severe CHF with an EF of approximately 10%; and also has stage IV CKD with baseline creatinine of 2.5-2.8. He was discharged to IRU on 02/19/18. Mr. Angel was seen on 02/20/18 after lunch. He was resting in bed, and complained of feeling very tired and fatigued. He stated that he worked hard with therapy this morning and is worn out. He denies chest pain, dizziness, lightheadedness, dyspnea. He denies fever/chills, cough/congestion/sore throat. He notes constipation but denies abdominal pain, n/v or appetite changes. He denies pain with urination. He has abrasions to his lower ext from his recent fall at home. He has had lower extremity edema. The ecchymosis to his left anterior chest has markedly improved. Past Medical History Medical History Updates: 1. Systolic heart failure with reported ejection fraction 10%. 2. Benign essential hypertension. 3. Atherosclerotic heart disease status post myocardial infarction. 4. A-fib. 5. Diabetes mellitus type 2 not on remote computer terminal operator insulin, with vascular complications of heart disease. 6. GERD. 7. Chronic kidney disease stage IV. 8. Coagulopathy secondary to use of Coumadin. 9. Gout. 10. Prostate cancer Surgical History: 1. Cardiac stent x2 placement after myocardial infarction early 2005. 2. Permanent pacemaker placement 2008, revision and AICD placement 2010, revision and new AICD placement 2016, new AICD and lead placement 2018. 3. AV ablation 2017. 4. Bilateral cataract procedure. 5. Cervical and lumbar spine surgery. 6. Appendectomy. 7. Tonsillectomy. 8. Umbilical hernia repair. 9. Right total shoulder replacement. 10. Left total knee replacement Family History Updates: His father of heart failure at age 55. Mother of scarlet fever at age 31, shortly after giving to Venancio's younger brother. His brother in his 30s of alcoholism. 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 Absent: chills, fever(s) - EENMT Eyes: Present: requires corrective lenses Balance: Present: as per HPI, vertigo Mouth/Throat: Present: as per HPI. Absent: sore throat - Cardiovascular Cardiovascular: Present: as per HPI. Absent: chest pain Vascular: Present: pedal edema - Respiratory Respiratory: Absent: cough, dyspnea - Gastrointestinal Gastrointestinal: Present: constipation. Absent: abdominal pain, nausea, vomiting - Genitourinary Genitourinary: Absent: dysuria - Musculoskeletal Musculoskeletal: Present: muscle weakness - Integumentary/Breasts Integumentary: Present: wounds (one abrasion on left leg and 2 on right leg; abrasions to right arm.) - Neurological Neurological: Present: as per HPI, frequent falls, weakness - Psychiatric Psychiatric: Absent: depression - Endocrine Endocrine: Absent: palpitations - Hematologic/Lymphatic Hematologic/Lymphatic: Absent: easy bleeding Medications Home Medications Medication Instructions Recorded Confirmed Type Amiodarone [Pacerone] 200 mg PO BID 11/19/17 02/19/18 History Omeprazole [Prilosec] 20 mg PO DAILY 11/19/17 02/19/18 History Acetaminophen 650 mg PO Q4HR PRN 01/16/18 02/19/18 History Calcium Carb/Vit D3/Minerals 1 each PO DAILY 01/16/18 02/19/18 History [Calcium 600+D Plus Minerals Tb] Docusate Sodium [Colace] 1 cap PO DAILY 01/16/18 02/19/18 History Doxepin [Sinequan] 10 mg PO HS 01/16/18 02/19/18 History Febuxostat [Uloric] 40 mg PO DAILY 01/16/18 02/19/18 History Folic Acid 0.8 mg PO DAILY 01/16/18 02/19/18 History Oxycodone HCl 5 mg PO Q6HR PRN 01/16/18 02/19/18 History Sitagliptin [Januvia] 25 mg PO DAILY tab 01/25/18 02/19/18 Rx Atorvastatin [Lipitor] 1 tab PO HS #30 tab 01/26/18 02/19/18 Rx Blood Sugar Diagnostic [Glucose 1 each MC BID #60 strip 01/26/18 02/19/18 Rx Test Strip] Insulin Glargine,Hum.rec.anlog 6 unit SQ HS #1 insuln.pen 01/26/18 02/19/18 Rx [Lantus Solostar] Ferrous Sulfate [Iron] 325 mg PO DAILY 02/12/18 02/19/18 History Melatonin/Pyridoxine HCl (B6) 3 mg PO HS 02/12/18 02/19/18 History [Melatonin 3 mg Tablet] Bumetanide Tab [Bumex 0.5 mg Tab] 0.5 mg PO BID 02/19/18 02/19/18 History Carvedilol [Coreg] 1 tab PO BIDWM 02/19/18 02/19/18 History Meclizine [Antivert] 1 tab PO TID 02/19/18 02/19/18 History Potassium Chloride [MICRO-K 10 mEq 10 meq PO DAILY 02/19/18 02/19/18 History Capsule] PredniSONE [Deltasone 5 mg] 5 mg PO WB 02/19/18 02/19/18 History Sennosides [Ex-Lax Maximum 25 mg PO DAILY PRN 02/19/18 02/19/18 History Strength] guaiFENesin [Mucinex] 600 mg PO BID PRN 02/19/18 02/19/18 History Allergies Allergy/AdvReac Type Severity Reaction Status Date / Time finasteride Allergy Intermediate Rash Verified 02/19/18 16:08 hydromorphone Allergy Unknown combative Verified 02/19/18 16:08 nitrofurantoin Allergy Unknown Nausea and Verified 02/19/18 16:08 Vomiting Poultry Allergy Unknown Verified 02/19/18 16:08 Exam Vital Signs: Temperature 98.1 F 02/20/18 07:00 Pulse Rate 109 H 02/20/18 07:00 Respiratory Rate 24 02/20/18 07:00 Blood Pressure 148/83 H 02/20/18 07:00 Pulse Oximetry 96 02/20/18 07:00 Height/Weight/BMI: Height 1.8 m Weight 73.7 kg Body Mass Index 22.6 - Constitutional Present: no acute distress, well nourished, well developed, thin - Routine HEENT Exam Head: Present: normocephalic Eye: Present: PERRL. Absent: conjunctival icterus, scleral injection ENT: Present: mucous membranes moist - Routine Neck Exam Present: supple. Absent: lymphadenopathy - Routine Chest/Breast/Axilla Exam Chest wall: Present: pacemaker (prominent to left anterior chest) - Routine Respiratory Exam Present: decreased breath sounds (bases) - Routine Cardiovascular Exam Present: RRR, S1, S2 - Routine Abdominal Exam Present: soft, normoactive bowel sounds, non distended, non tender - Routine Extremities Exam Present: edema (1+ BLE) - Routine Skin Exam Present: wounds (dressings applied to BLE; 2 on left medina and 1 on right) - Routine Neurological Exam Present: alert, oriented X3, moving all extremities, vision grossly intact, hearing grossly intact, normal speech. Absent: facial asymmetry - Routine Psychiatric Exam Present: normal thought process, cooperative Results - Labs CBC & Chem 7: 02/20/18 04:19 02/20/18 04:19 Assessment and Plan Assessment and Plan: Assessment 1. Systolic heart failure with reported ejection fraction 10% 2. Benign essential hypertension 3. Atherosclerotic heart disease status post myocardial infarction 4. A-fib 5. Diabetes mellitus type 2 not on remote computer terminal operator insulin, with vascular complications of heart disease 6. GERD 7. Chronic kidney disease stage IV 8. Coagulopathy secondary to use of Coumadin 9. Gout 10. Prostate cancer Plan Agree with IRU orders per Dr. Peoples. Hx of dysphagia - may consider consulting speech therapy. DC Lovenox; no noted history of VTE and with hx of recent falls, anticoagulating with Coumadin and Lovenox has greater risk than benefit. Pharmacy consulted for Coumadin dosing. INR subtherapeutic on admit. Monitor renal function - baseline creatinine ranges 2.5-3.0 and was higher just recently while hospitalized in [place]. Wound RN has seen the patient and applied Mepilex (1 with Aquacel and 2 with Xeroform) dressings to the abrasions on his legs. Continue Januvia, Lantus HS for DM. Monitor sugars. High risk for CHF exacerbation and RODRIGUE. Thank you for this consult. DVT Prophylaxis: Coumadin GI Prophylaxis: Omeprazole Resuscitation Status: Do Not Resuscitate - Physician Narrative Physician: César Beckett MD Narrative: Date: 02/20/18 Time: 1718 Have independently interviewed & examined pt. Chart reviewed. Case discussed with my CUSTOMER CONTACT SPECIALIST. Above care plan developed with my supervision; agree with above. Admitted to IRU for restorative therapy following cardiac intervention. Presented to [facility] and found to have failing pacemaker. Discharge to [place] and had revision of pacemaker. Tolerated procedure well. Notes still weak, but able to work with therapy (HARD work, he reports). Breathing stable. Not having chest pressure or pain. No ab pain or nausea. Lungs: decreased, no distress CV: irregularly irregular AB: soft nt/nd MSE: awake alert appropriate Plan: Agree with admission to IRU to maximize strength and functional status. Encourage continued participation with therapy. Continue with medications as outlined from recent discharge. Monitor INR due to Coumadin use. Will need to monitor BMP due to medications and stage 4 CKD. Medically stable for IRU floor activities. Hospital Course Summary Disclaimer: The visit summary below is not to be considered part of the above Progress Note. Hospital Course: 02/20/18 Agree with IRU orders per Dr. Peoples. Hx of dysphagia - may consider consulting speech therapy. DC Lovenox; no noted history of VTE and with hx of recent falls, anticoagulating with Coumadin and Lovenox has greater risk than benefit. Pharmacy consulted for Coumadin dosing. INR subtherapeutic on admit. Monitor renal function - baseline creatinine ranges 2.5-3.0 and was higher just recently while hospitalized in [place]. Wound RN has seen the patient and applied Mepilex (1 with Aquacel and 2 with Xeroform) dressings to the abrasions on his legs. Continue Viral Hirsch for DM. Monitor sugars. High risk for CHF exacerbation and RODRIGUE.
[2018-02-20] MEDS ORDERED: BISACODYL 10 MG SUPPOSITORY RECTALLY PRN (14:44)
--- NOTE | 2018-02-20 14:51 | IRU Progress Note ---
- Subjective/Serverity of Illness Date: 02/20/18 Mr. Angel is settling into the rehabilitation routine well. He is cooperative with therapy and wants to get back home. It is noted that he has been consuming thin liquids at home despite recommendations for nectar thickened liquids. Discussed with speech therapy today. Patient states that he wants to continue thin liquids even though there is a risk of aspiration. He complains of the left leg wound throbbing a bit. Wound care has seen him and recommends aqua cell silver with Mepilex. Recommendations will be implemented. The patient continues to complain of constipation. He takes Ex-Lax at home. We will see if we can modify his bowel regimen here. He is tolerating therapy well despite his 10% ejection fraction. Previously noted left anterior chest hematoma has essentially resolved nicely. His creatinine is improved from 3.2 in [place] down to 2.8 here. It appears as though his baseline is around 2.6. Exam Vital Signs: Temperature 98.1 F 02/20/18 07:00 Pulse Rate 109 H 02/20/18 07:00 Respiratory Rate 24 02/20/18 07:00 Blood Pressure 148/83 H 02/20/18 07:00 Pulse Oximetry 96 02/20/18 07:00 Height/Weight/BMI: Height 1.8 m Weight 73.7 kg Body Mass Index 22.6 - Constitutional Present: no acute distress, well nourished, well developed, thin, cooperative - Routine HEENT Exam Head: Present: normocephalic Eye: Present: EOMI ENT: Present: mucous membranes moist, oropharynx clear - Routine Respiratory Exam Present: decreased breath sounds, CTA bilaterally. Absent: wheezes - Routine Cardiovascular Exam Present: RRR, S1, S2. Absent: murmur Comments: distant heart sounds - Routine Abdominal Exam Present: soft, normoactive bowel sounds, non distended. Absent: tenderness - Routine Extremities Exam Present: normal capillary refill - Routine Skin Exam Present: dry, warm, wounds (as noted - on arms and legs), ecchymosis (multiple as before) - Routine Neurological Exam Present: alert, oriented X3, CN II-XII intact - Routine Psychiatric Exam Present: normal affect IRU A/P (1) Debility Current visit: No Status: Acute Patient is tolerating therapy adequately. He does have significant debilitation due to his recent hospitalization and fall etc. (2) Atrial fibrillation Qualifiers: Atrial fibrillation type: permanent Qualified Code(s): I48.2 - Chronic atrial fibrillation Current visit: No Status: Chronic INR slightly subtherapeutic and managed by pharmacy. (3) Hip pain, right Current visit: No Status: Acute (4) Knee pain, right Qualifiers: Chronicity: acute Qualified Code(s): M25.561 - Pain in right knee Current visit: No Status: Acute (5) Systolic heart failure Qualifiers: Heart failure chronicity: acute on chronic Qualified Code(s): I50.23 - Acute on chronic systolic (congestive) heart failure Current visit: No Status: Chronic (6) Vertigo Current visit: No Status: Acute (7) Arteriosclerotic heart disease (ASHD) Current visit: No Status: Chronic DVT Prophylaxis: Coumadin Resuscitation Status: Do Not Resuscitate - Course Hospital Course: Ulysses Peoples MD: 02/20/18 14:55 Tolerating therapy well. Constipated. Wound care has seen him regarding the abrasions etc. - Interventions to Obtain Goals PT Treatment Plan: Balance/Proprioception, Functional Activities, Gait Training , Patient/Family Education, Therapeutic Exercise OT Treatment Plan: ADL (Basic Care), Balance Training, IADL, Pt./Family Education, Ther. Exercise for ADL
[2018-02-20] MEDS: ACETAMINOPHEN 325 MG TABLET PO PRN (19:53)
[2018-02-20] MEDS: INSULIN ASPART 100unit/ml INJECTION SQ PRN (20:09)
[2018-02-20] MEDS: INSULIN GLARGINE 100unit/ml INJECTION SQ SCH (22:01)
[2018-02-20] MEDS: DOXEPIN 10 MG CAPSULE PO SCH (22:01)
[2018-02-20] MEDS: MELATONIN 1 MG TABLET PO SCH (22:02)
[2018-02-20] MEDS: ATORVASTATIN 10 MG TABLET PO SCH (22:02)
[2018-02-21] MEDS: OMEPRAZOLE 20 MG CAPSULE PO SCH (06:39)
[2018-02-21] MEDS: INSULIN ASPART 100unit/ml INJECTION SQ PRN ×4 (06:44→21:08)
[2018-02-21] MEDS: BUMETANIDE 0.5 MG TABLET PO SCH ×2 (08:41→14:32)
[2018-02-21] MEDS: POLYETHYL GLYCOL 3350 17gm PACKET PO SCH (08:41)
[2018-02-21] MEDS: MECLIZINE 12.5 MG TABLET PO SCH ×3 (08:42→21:08)
[2018-02-21] MEDS: AMIODARONE 200 MG TABLET PO SCH (08:42)
[2018-02-21] MEDS: CARVEDILOL 25 MG TABLET PO SCH ×2 (08:42→17:43)
[2018-02-21] MEDS: FERROUS SULFATE 324 MG TABLET PO SCH (08:42)
[2018-02-21] MEDS: FOLIC ACID 1 MG TABLET PO SCH (08:43)
[2018-02-21] MEDS: SITAGLIPTIN 100 MG TABLET PO SCH (08:43)
[2018-02-21] MEDS: PredniSONE 5 MG TABLET PO SCH (08:43)
[2018-02-21] MEDS: FEBUXOSTAT 40 MG TABLET PO SCH (08:43)
[2018-02-21] MEDS: CALCIUM 600 + VIT D 400 TABLET PO SCH (08:43)
[2018-02-21] MEDS: DOCUSATE SODIUM 100 MG CAPSULE PO SCH (08:43)
--- NOTE | 2018-02-21 09:54 | Pharmacy Consult ---
Pharmacy Consult-Warfarin - Laboratory Information 02/19/18 02/20/18 02/20/18 18:24 04:19 04:19 Hgb 10.1 L Hct 32.5 L INR 1.35 H 1.32 H 02/21/18 05:23 Hgb Hct INR 1.70 H - Consult Information COUMADIN CONSULT (Recurring): 87 yr old male patient 5'11" 73.7 kg with extensive cardiac history on amiodarone 200mg twice daily. Date INR Dose 02/19/18 1.35 4 mg 02/20/18 1.32 5 mg 02/21/18 1.70 Will give 4 mg warfarin today Pharmacy will continue to monitor the INR and adjust the warfarin dose. Goal is a therapeutic INR between 2-3. Thank you. Ida Eaton, PharmD
--- NOTE | 2018-02-21 10:51 | Progress Note ---
Progress Note: Pharmacist called questioning amiodarone dose. I talked to Dr. Choe and he states that pt is in chronic a-fib and does not need to be on amiodarone. He recommends that it be DC'd as of now. THis order is given.
[2018-02-21] MEDS ORDERED: WARFARIN 4 MG TABLET PO SCH (12:00)
--- NOTE | 2018-02-21 13:24 | Wound Care Progress Note ---
Wound Center Progress Note: Pt seen 02/20/18 for wound consultation r/t multiple abrasions to bilateral lower legs. Pt resting in bed, no complaints of pain. Pt was admitted to IRU from [facility]. Pt fell on 02/13/18 at home and sustained multiple abrasions to lower legs. He reports the L leg "throbs" and the R leg "doesn't hurt much." L leg: L anterior medina: full thickness, abrasion, scant serosanguineous drainage on dressing removed, scant active sanguinous drainage, red non-granulating tissue, scant slough. Periwound: blanchable erythema. R lateral lower leg just distal to knee: partial thickness abrasion, no drainage on dressing removed, no active drainage, red non-granulating tissue. Periwound: blanchable erythema. R anterior medina: partial thickness abrasion, no drainage on dressing removed, no active drainage, red non-granulating tissue. Periwound: blanchable erythema. Wound care: To L anterior medina: Apply Aquacel Ag, cover with Mepilex, change q 3 days. To R lateral lower leg and R anterior medina: Apply Xeroform, cover with Mepilex, change q 3 days.
--- NOTE | 2018-02-21 13:35 | Wound Care Progress Note ---
Wound Management - Patient Status Premedicated Prior to Dressing Change: No - Wound Left Anterior Medina Wound Type: Abrasion Wound Present on Admission?: Yes Length: 2.4 Width: 1.9 Depth: 0.2 Wound Bed Appearance: Firestone, Slough Patricia Wound Appearance: Firestone, Blanched/Dull Tunneling: No Undermining: No Drainage Description: Sanguineous Drainage Amount: Scant Drainage Odor: No Odor Dressing Status: Changed Primary Dressing: Silver Dressing Secondary Dressing: Foam Dressing, Mepilex (R lateral lower leg/R anterior medina : Xeroform, mepilex, change q 3 days. L anterior medina: Aquacel Ag, mepilex, change q 3 days.) Dressing Change Date: 02/20/18 Dressing Change Time: 13:00 Dressing Change Patient Tolerance: Tolerated Well Right Lateral Leg Wound Type: Abrasion Wound Present on Admission?: Yes Length: 2.4 Width: 2.5 Depth: 0.1 Wound Bed Appearance: Firestone Patricia Wound Appearance: Firestone, Blanched/Dull Tunneling: No Undermining: No Drainage Description: Sanguineous Drainage Amount: None Drainage Odor: No Odor Dressing Status: Changed Secondary Dressing: Mepilex Dressing Change Date: 02/20/18 Dressing Change Time: 13:00 Dressing Change Patient Tolerance: Tolerated Well Right Anterior Medina Wound Type: Abrasion Wound Present on Admission?: Yes Length: 1 Width: 1 Depth: 0.1 Wound Bed Appearance: Firestone Patricia Wound Appearance: Firestone Tunneling: No Undermining: No Drainage Description: Sanguineous Drainage Amount: None Drainage Odor: No Odor Dressing Status: Changed Secondary Dressing: Mepilex Dressing Change Date: 02/20/18 Dressing Change Time: 13:00 Dressing Change Patient Tolerance: Tolerated Well
[2018-02-21] MEDS: ACETAMINOPHEN 325 MG TABLET PO PRN ×2 (14:32→22:46)
[2018-02-21] MEDS: DOXEPIN 10 MG CAPSULE PO SCH (21:07)
[2018-02-21] MEDS: MELATONIN 1 MG TABLET PO SCH (21:07)
[2018-02-21] MEDS: INSULIN GLARGINE 100unit/ml INJECTION SQ SCH (21:08)
[2018-02-21] MEDS: ATORVASTATIN 10 MG TABLET PO SCH (21:08)
[2018-02-22] MEDS: OMEPRAZOLE 20 MG CAPSULE PO SCH (06:18)
--- NOTE | 2018-02-22 07:40 | Pharmacy Consult ---
Pharmacy Consult-Warfarin - Laboratory Information 02/19/18 02/20/18 02/20/18 18:24 04:19 04:19 Hgb 10.1 L Hct 32.5 L INR 1.35 H 1.32 H 02/21/18 02/22/18 05:23 04:28 Hgb Hct INR 1.70 H 2.40 H - Consult Information COUMADIN CONSULT: Day 4 87 yr old male patient 5'11" 73.7 kg with extensive cardiac history on amiodarone 200mg twice daily. Date INR Dose 02/19/18 1.35 4 mg 02/20/18 1.32 5 mg 02/21/18 1.70 4 mg 02/22/18 2.40 2 mg Now that the patient is therapeutic I am decreasing the dose for today to 2 mg ( home dose was 2.5 mg). The Pharmacy will continue to monitor the INR and adjust the warfarin dose as needed. Goal is a therapeutic INR between 2-3. Thank you, Deondre Perez [facility]
[2018-02-22] MEDS: PredniSONE 5 MG TABLET PO SCH (08:49)
[2018-02-22] MEDS: DOCUSATE SODIUM 100 MG CAPSULE PO SCH (08:49)
[2018-02-22] MEDS: FERROUS SULFATE 324 MG TABLET PO SCH (08:49)
[2018-02-22] MEDS: CARVEDILOL 25 MG TABLET PO SCH ×2 (08:49→17:34)
[2018-02-22] MEDS: CALCIUM 600 + VIT D 400 TABLET PO SCH (08:50)
[2018-02-22] MEDS: FOLIC ACID 1 MG TABLET PO SCH (08:50)
[2018-02-22] MEDS: SITAGLIPTIN 100 MG TABLET PO SCH (08:50)
[2018-02-22] MEDS: MECLIZINE 12.5 MG TABLET PO SCH ×3 (08:50→21:19)
[2018-02-22] MEDS: BUMETANIDE 0.5 MG TABLET PO SCH ×2 (08:50→15:09)
[2018-02-22] MEDS: FEBUXOSTAT 40 MG TABLET PO SCH (08:50)
[2018-02-22] MEDS: POLYETHYL GLYCOL 3350 17gm PACKET PO SCH (08:51)
[2018-02-22] MEDS ORDERED: WARFARIN 2 MG TABLET PO SCH (12:00)
[2018-02-22] MEDS: ACETAMINOPHEN 325 MG TABLET PO PRN (12:58)
--- NOTE | 2018-02-22 14:45 | IRU Progress Note ---
- Subjective/Serverity of Illness Date: 02/22/18 Mr. Angel was seen in his room on acute inpatient rehabilitation. He states that he is tolerating therapy well. His main problem from his perspective is sit to stand transfers. He continues to deny much in the way of shortness of breath with activity despite his markedly reduced ejection fraction. The wound in the left anterior medina continues to throb a bit. I again inspected today and there is no indication of infection. Appreciate wound care's input in this regard. From a physical therapy standpoint, he is able to transfer with moderate to maximum assistance. He is walking with a front wheeled walker 35 feet at contact guard assistance level (total assistance on basis of distance). For occupational therapy he is requiring minimum assistance for dressing. It is noted that on his previous admission, he was assessed by speech therapy and it was recommended that he continue on nectar thickened liquids. When he went home he did not do so and drink regular liquids. He remains on that at present. There is concern about aspiration risk and we will monitor this carefully. He indicates that he does not wish to go back to thickened liquids however. Brief update on medical issues we are actively managing and monitoring as follows: 1. Acute on chronic debilitation: Please see above description regarding therapy results. 2. Chronic systolic CHF with EF reportedly 10%: His heart exam seems stable at present. His lungs are clear. Weight is slightly up and we will monitor carefully. Denies dyspnea. 3. DM Type II, on oral agents: Blood sugars are running a bit on the high side. 4. CKD with acute kidney injury (baseline creatinine 2.6 and now it is 3.2 in [place].): Creatinine is 2.8 here. 5. Atrial fibrillation: Pharmacy monitoring his INR which is now therapeutic. 6. History of hypertension with some episodes of hypotension: Blood pressures are remaining stable. 7. Vertigo: On tapering dose of meclizine: Symptoms are improving. Exam Vital Signs: Temperature 98.3 F 02/22/18 08:47 Pulse Rate 60 02/22/18 08:47 Respiratory Rate 16 02/22/18 08:47 Blood Pressure 108/60 02/22/18 08:47 Pulse Oximetry 94 02/22/18 08:47 Height/Weight/BMI: Height 1.8 m Weight 75.6 kg Body Mass Index 22.6 - Constitutional Present: no acute distress, well nourished, well developed, cooperative - Routine HEENT Exam Eye: Present: EOMI ENT: Present: mucous membranes moist, oropharynx clear - Routine Respiratory Exam Present: decreased breath sounds, CTA bilaterally. Absent: wheezes - Routine Cardiovascular Exam Present: RRR, S1, S2, murmur - Routine Abdominal Exam Present: soft, normoactive bowel sounds, non distended. Absent: tenderness - Routine Extremities Exam Present: no edema - Routine Skin Exam Present: dry, warm, wounds (please see descriptions from wound care nurse. I inspected the left anterior medina wound. It remains with some slough but no evidence of infection.) - Routine Neurological Exam Present: alert, oriented X3, CN II-XII intact - Routine Psychiatric Exam Present: normal affect Results IRU - Labs Labs: Have reviewed other providers notes and chart data. IRU A/P (1) Debility Current visit: No Status: Acute He is making progress with therapy. From his perspective the most challenging part is sit to stand transfers. He is tolerating therapy adequately despite his severely reduced ejection fraction. (2) Atrial fibrillation Qualifiers: Atrial fibrillation type: permanent Qualified Code(s): I48.2 - Chronic atrial fibrillation Current visit: No Status: Chronic He sounds regular at present, likely related to his pacemaker. He remains on warfarin with therapeutic INR. (3) Hip pain, right Current visit: No Status: Acute (4) Knee pain, right Qualifiers: Chronicity: acute Qualified Code(s): M25.561 - Pain in right knee Current visit: No Status: Acute (5) Systolic heart failure Qualifiers: Heart failure chronicity: acute on chronic Qualified Code(s): I50.23 - Acute on chronic systolic (congestive) heart failure Current visit: No Status: Chronic (6) Vertigo Current visit: No Status: Acute (7) Arteriosclerotic heart disease (ASHD) Current visit: No Status: Chronic DVT Prophylaxis: Coumadin Resuscitation Status: Do Not Resuscitate - Course Hospital Course: Ulysses Peoples MD: 02/20/18 14:55 Tolerating therapy well. Constipated. Wound care has seen him regarding the abrasions etc. 02/22/18 14:49 Wounds inspected. Stable. Tolerating therapy well. Continues to make progress. - Interventions to Obtain Goals PT Treatment Plan: Balance/Proprioception, Functional Activities, Gait Training , Patient/Family Education, Therapeutic Exercise OT Treatment Plan: ADL (Basic Care), Balance Training, IADL, Pt./Family Education, Ther. Exercise for ADL Goals Progress/Modifications: The patient has declined to utilize thickened liquids and is on thin liquids at home and here. He is an aspiration risk. He does have a cough. We will continue to monitor his chest exam carefully. Has been advised to use thickened liquids but declines at present. His wounds are inspected and seemed to be stable. Appreciate wound care input. His weight is slightly elevated. We will monitor for worsening CHF findings. 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 Please note that the patient's individual plan of care was developed and documented today, requiring review of therapy notes, medical conditions and anticipated functional recovery. This required additional medical decision making with regard to interaction of the patient's medical issues with the anticipated functional recovery. Please see separate document
--- NOTE | 2018-02-22 14:54 | IRU Plan of Care ---
[facility] Overall Plan of Care - Date Date: 02/22/18 - Patient Impairments (1) Debility Code(s): R53.81 - Other malaise Status: Acute Classification: Present on IRF Admission, IRF Tx That Should Address Diagnosis, Diagnosis Requiring Medical Follow Up (2) Vertigo Code(s): R42 - Dizziness and giddiness Status: Acute Classification: Present on IRF Admission, IRF Tx That Should Address Diagnosis, Diagnosis Requiring Medical Follow Up (3) Diabetes mellitus type II, uncontrolled Qualifiers: Diabetes mellitus skilled nursing insulin use: without rodent exterminator use Diabetes mellitus complication status: with circulatory complication Diabetes mellitus complication detail: with other circulatory complications Qualified Code(s): E11.59 - Type 2 diabetes mellitus with other circulatory complications; E11.65 - Type 2 diabetes mellitus with hyperglycemia Code(s): E11.65 - Type 2 diabetes mellitus with hyperglycemia Status: Chronic Classification: Present on IRF Admission, IRF Tx That Should Address Diagnosis, Diagnosis Requiring Medical Follow Up (4) Systolic heart failure Qualifiers: Heart failure chronicity: chronic Qualified Code(s): I50.22 - Chronic systolic (congestive) heart failure Code(s): I50.20 - Unspecified systolic (congestive) heart failure Status: Chronic Classification: Present on IRF Admission, IRF Tx That Should Address Diagnosis, Diagnosis Requiring Medical Follow Up - Relevant Changes Relevant Changes: No Reviewed: I have reviewed the patient's information and concur with the finding and results of the pre-admission screen. Certification: I certify the patient for rehabilitation. - Medical Prognosis Medical Prognosis: Fair Vital Signs: Last Vital Signs Temp 98.3 F 02/22/18 08:47 Pulse 60 02/22/18 08:47 Resp 16 02/22/18 08:47 BP 108/60 02/22/18 08:47 Pulse Ox 94 02/22/18 08:47 - Anticipated Interventions Anticipated Interventions: The patient requires inpatient IRF care for PT, OT, and/or ST for residuals remaining from fall and debilitation along with cardiomyopathy/systolic heart failure and vertigo resulting in muscular weakness and strength deficits. ROM Deficit: Right Upper Extremity, Left Upper Extremity - Current Functional Status Failed Alternative Therapy: Arrived from Acute Care Patient Requires: The patient requires oversight by rehabilitation physician to manage their rehabilitation treatment plan and multidisciplinary approach to care that can only be provided in an IRF and requires a multidisciplinary approach to care, provided by professional PTs, OTs, STs, rehabilitation nurses, and may require STs, dieticians, and RTS. This is not available in lesser levels of care. Physical Therapy Minutes: 90 Occupational Therapy Minutes: 90 Therapy: The patient is to receive therapy at least 5 days a week. - Anticipated LOS/Outcomes Anticipated Functional Outcome: It is anticipated the patient will be able to return to his independent living apartment at [place], able to perform most of his ADLs. He will continue to require assistance with IADLs. It is anticipated that his cardiac status will be stable at that time. Expected functional improvements include: -- Modified independant to independant ambulation with or without assistive device -- Modified independant to independant ADL's with or without assistive device -- Return to pre-morbid level of mobility -- Maximize level of mobility and ADL's to decrease burden on any caregiver involved with this patient's care Anticipated Length of Stay (days): 10 Anticipated DC Destination: Home, Self Care, Home Health Service Home Safety Plan: The patient will be provided with the development of a Home Safety Plan for return to a home or home-like environment and and to ensure safety post discharge. - Plan to Avoid Complications Barriers to Attaining Goals: Weakness, Endurance, Medical Limitation (heart failure) Plan to Avoid Complications: The patient cannot receive this care in a lesser intensive setting such as Custodial or Outpatient Therapy due to the patient requiring the following : This patient with high fall risk requires 24 hour rehabilitation nursing monitoring to reduce fall risk from his vertigo, monitoring of his systolic heart failure which is severe, monitoring of his weight and fluid intake etc. He requires a multidisciplinary approach with PT and OT in view of these medical problems along with medical supervision. This cannot be provided at a less intensive setting.
[2018-02-22] MEDS: INSULIN ASPART 100unit/ml INJECTION SQ PRN ×2 (17:34→21:18)
[2018-02-22] MEDS: INSULIN GLARGINE 100unit/ml INJECTION SQ SCH (21:17)
[2018-02-22] MEDS: DOXEPIN 10 MG CAPSULE PO SCH (21:19)
[2018-02-22] MEDS: MELATONIN 1 MG TABLET PO SCH (21:19)
[2018-02-22] MEDS: ATORVASTATIN 10 MG TABLET PO SCH (21:19)
[2018-02-23] MEDS: OMEPRAZOLE 20 MG CAPSULE PO SCH (06:05)
[2018-02-23] MEDS: MECLIZINE 12.5 MG TABLET PO SCH ×3 (06:05→22:01)
[2018-02-23] MEDS: INSULIN ASPART 100unit/ml INJECTION SQ PRN ×4 (06:15→22:01)
[2018-02-23] MEDS: SITAGLIPTIN 100 MG TABLET PO SCH (09:15)
[2018-02-23] MEDS: BUMETANIDE 0.5 MG TABLET PO SCH ×2 (09:16→13:37)
[2018-02-23] MEDS: CALCIUM 600 + VIT D 400 TABLET PO SCH (09:16)
[2018-02-23] MEDS: FEBUXOSTAT 40 MG TABLET PO SCH (09:16)
[2018-02-23] MEDS: CARVEDILOL 25 MG TABLET PO SCH ×2 (09:17→17:44)
[2018-02-23] MEDS: FOLIC ACID 1 MG TABLET PO SCH (09:17)
[2018-02-23] MEDS: DOCUSATE SODIUM 100 MG CAPSULE PO SCH (09:18)
[2018-02-23] MEDS: PredniSONE 5 MG TABLET PO SCH (09:18)
[2018-02-23] MEDS: FERROUS SULFATE 324 MG TABLET PO SCH (09:18)
[2018-02-23] MEDS: POLYETHYL GLYCOL 3350 17gm PACKET PO SCH (09:19)
--- NOTE | 2018-02-23 09:23 | Pharmacy Consult ---
Pharmacy Consult-Warfarin - Laboratory Information 02/19/18 02/20/18 02/20/18 18:24 04:19 04:19 Hgb 10.1 L Hct 32.5 L INR 1.35 H 1.32 H 02/21/18 02/22/18 02/23/18 05:23 04:28 05:01 Hgb Hct INR 1.70 H 2.40 H 2.79 H - Consult Information COUMADIN CONSULT: Day 87 yr old male patient 5'11" 73.7 kg with extensive cardiac history on amiodarone 200mg twice daily. Date INR Dose 02/19/18 1.35 4 mg 02/20/18 1.32 5 mg 02/21/18 1.70 4 mg 02/22/18 2.40 2 mg 02/23/18 2.59 2 mg Now that the patient is therapeutic I am repeating the dose of warfarin 2 mg today (home dose was 2.5 mg). The Pharmacy will continue to monitor the INR and adjust the warfarin dose as needed. Goal is a therapeutic INR between 2-3. Thank you, Deondre Perez [facility]
[2018-02-23] MEDS ORDERED: WARFARIN 2 MG TABLET PO SCH (12:00)
[2018-02-23] MEDS ORDERED: SCOPOLAMINE 1mg/3 days PATCH (Eq. 1.5 Patch) TD SCH (13:45)
--- NOTE | 2018-02-23 13:46 | Progress Note ---
- Date 02/23/18 Subjective: Venancio was seen during lunch. He woke up around 0300 with vertigo - describes as a spinning sensation. Denies tinnitus. Denies headache. Family report that physicians at [facility] dx with concussion. Sx seem improved with meclizine, and vertigo much better at this time compared to earlier. No SOA or chest pain. Objective Vital signs: Temperature 97.6 F 02/23/18 08:00 Pulse Rate 62 02/23/18 08:00 Respiratory Rate 20 02/23/18 08:00 Blood Pressure 111/53 02/23/18 08:00 Pulse Oximetry 95 02/23/18 08:00 Height/Weight/BMI: Height 1.8 m Weight 75.6 kg Body Mass Index 22.6 - Constitutional Present: no acute distress, well nourished, well developed - Routine HEENT Exam Head: Present: normocephalic Eye: Present: PERRL. Absent: conjunctival icterus, scleral injection - Routine Respiratory Exam Present: CTA bilaterally - Routine Cardiovascular Exam Present: RRR, S1, S2 - Routine Abdominal Exam Present: soft, normoactive bowel sounds, non distended, non tender - Routine Extremities Exam Present: no edema - Routine Skin Exam Present: intact, dry, warm, wounds (mepilex dressings BLE) - Routine Neurological Exam Present: alert, oriented X3, moving all extremities, normal speech - Routine Psychiatric Exam Present: normal affect, normal thought process, cooperative Results - Labs CBC & Chem 7: 02/20/18 04:19 02/23/18 05:01 Microbiology Results: Microbiology 02/20/18 21:37 Urine, Voided (Cc/notcc) Urine Culture - Final Coag negative Staphylococcus Assessment and Plan Assessment and Plan: Assessment Vertigo Possible post-concussive syndrome Systolic heart failure with reported ejection fraction 10% Benign essential hypertension Atherosclerotic heart disease status post myocardial infarction A-fib Coagulopathy secondary to use of Coumadin Diabetes mellitus type 2 not on alf insulin, with vascular complications of heart disease GERD Chronic kidney disease stage IV Gout Prostate cancer Plan Vertigo - cont meclizine; trial scopolamine patch and monitor for side effects Slightly increasing BUN/creatinine - cont Bumex for now, recheck in am - may need to hold bumex/K Dr. Peoples to discuss anticoag recommendations with Dr. Choe Hyperglycemia - increase Lantus to 7U, cont SSI. DVT Prophylaxis: Coumadin GI Prophylaxis: Omeprazole Resuscitation Status: Do Not Resuscitate - Physician Narrative Narrative: Date: 02/23/18 Time: 1342 Hospital Course Summary Disclaimer: The visit summary below is not to be considered part of the above Progress Note. Hospital Course: 02/20/18 Agree with IRU orders per Dr. Peoples. Hx of dysphagia - may consider consulting speech therapy. DC Lovenox; no noted history of VTE and with hx of recent falls, anticoagulating with Coumadin and Lovenox has greater risk than benefit. Pharmacy consulted for Coumadin dosing. INR subtherapeutic on admit. Monitor renal function - baseline creatinine ranges 2.5-3.0 and was higher just recently while hospitalized in [place]. Wound RN has seen the patient and applied Mepilex (1 with Aquacel and 2 with Xeroform) dressings to the abrasions on his legs. Continue Januvia, Lantus HS for DM. Monitor sugars. High risk for CHF exacerbation and RODRIGUE. 02/23/18 Vertigo - cont meclizine; trial scopolamine patch and monitor for side effects. Slightly increasing BUN/creatinine - cont Bumex for now, recheck in am - may need to hold bumex/K Dr. Peoples to discuss anticoag recommendations with Dr. Choe Hyperglycemia - increase Lantus to 7U, cont SSI.
--- NOTE | 2018-02-23 14:06 | IRU Team Meeting ---
IRU Team Meeting - Nursing Bladder Assistive Devices Utilized:: Absorbent Pad Bladder Management Level of Assist: Modified Independent Bowel Assistive Devices Utilized:: Medication, Absorbent Pad Bowel Management Level of Assist: Modified Independent Vital Signs: Vital Signs - 24 hr 02/22/18 15:40 02/22/18 23:40 02/23/18 08:00 Temperature 97.6 F 98.4 F 97.6 F Pulse Rate 64 60 62 Respiratory Rate 18 15 20 Blood Pressure 106/50 114/64 111/53 Pulse Oximetry 95 96 95 Current Medications: Acetaminophen (Tylenol) 650 mg PO Q4HR PRN PRN Reason: Pain Last Admin: 02/22/18 12:58 Dose: 650 mg Atorvastatin Calcium (Lipitor) 10 mg PO HS [facility] Last Admin: 02/22/18 21:19 Dose: 10 mg Bisacodyl (Dulcolax) 10 mg RECTALLY DAILY PRN PRN Reason: Constipation Last Admin: 02/20/18 19:53 Dose: 10 mg Bumetanide (Bumex 0.5 Mg Tab) 0.5 mg PO 0900,1400 [facility] Last Admin: 02/23/18 13:37 Dose: 0.5 mg Calcium/Vitamin D (Caltrate + D) 1 tab PO DAILY [facility] Last Admin: 02/23/18 09:16 Dose: 1 tab Carvedilol (Coreg) 25 mg PO BIDWM [facility] Last Admin: 02/23/18 09:17 Dose: 25 mg Docusate Sodium (Colace) 100 mg PO DAILY [facility] Last Admin: 02/23/18 09:18 Dose: 100 mg Doxepin HCl (Sinequan) 10 mg PO HS [facility] Last Admin: 02/22/18 21:19 Dose: 10 mg Febuxostat (Uloric) 40 mg PO DAILY [facility] Last Admin: 02/23/18 09:16 Dose: 40 mg Ferrous Sulfate (Feosol) 324 mg PO WB [facility] Last Admin: 02/23/18 09:18 Dose: 324 mg Folic Acid (Folate) 1 mg PO DAILY [facility] Last Admin: 02/23/18 09:17 Dose: 1 mg Glucose (Glutose 15) 37.5 gm PO PRN PRN PRN Reason: Hypoglycemia Guaifenesin (Mucinex La) 600 mg PO BID PRN PRN Reason: Congestion Insulin Aspart (Novolog) 1 - 5 unit SQ SS PRN; Protocol PRN Reason: Hyperglycemia Last Admin: 02/23/18 12:09 Dose: 2 unit Insulin Glargine (Lantus) 7 unit SQ HS [facility] Magnesium Hydroxide (Mom) 30 ml PO DAILY PRN PRN Reason: Constipation Meclizine HCl (Antivert) 12.5 mg PO BID [facility] Stop: 02/25/18 23:00 Last Admin: 02/23/18 09:20 Dose: 12.5 mg Meclizine HCl (Antivert) 12.5 mg PO DAILY [facility] Stop: 02/28/18 23:00 Melatonin (Melatonin) 3 mg PO HS [facility] Last Admin: 02/22/18 21:19 Dose: 3 mg Omeprazole (Prilosec) 20 mg PO ACB [facility] Last Admin: 02/23/18 06:05 Dose: 20 mg Oxycodone HCl (Roxicodone *Ir*) 5 mg PO Q6H PRN PRN Reason: Pain Polyethylene Glycol (Miralax) 17 gm PO DAILY [facility] Last Admin: 02/23/18 09:19 Dose: 17 gm Potassium Chloride (Micro-K 10 Meq Capsule) 10 meq PO WB [facility] Last Admin: 02/23/18 09:17 Dose: 10 meq Prednisone (Deltasone 5 Mg) 5 mg PO WB [facility] Last Admin: 02/23/18 09:18 Dose: 5 mg Scopolamine (Transderm-Scop Patch Removal) 1 removal TD Q3D [facility] Stop: 02/26/18 13:46 Senna (Ex-Lax Maximum Strength) 25 mg PO DAILY PRN PRN Reason: Constipation Last Admin: 02/20/18 06:04 Dose: 25 mg Sitagliptin Phosphate (Januvia) 25 mg PO DAILY [facility] Last Admin: 02/23/18 09:15 Dose: 25 mg Warfarin Sodium (Coumadin) 2 mg PO NOON [facility] Stop: 02/23/18 23:59 Last Admin: 02/23/18 12:30 Dose: 2 mg Current Medical Issues: congestive cardiomyopathy, atrial fib, vertigo, multiple abrasions and wounds from fall, debilitation, DM II Comments: I certify that I personally led the interdisciplinary team meeting and agree with comments, barriers and goals indicated. Team meeting was held in the patient's room with the patient and the following family members present: patient's daughter, patient's other daughter via phone, patient's son-in-law Mr. Angel is having recurring problems with vertigo. He gets very fatigued during these times. His creatinine is up from 2.8-3.0. His Bumex is at a reduced dose of 0.5 mg twice daily. His account installer Dr. Choe recommends discontinuing his warfarin. His blood sugars are monitored. He is on a sliding insulin scale. - Dietary Patient is followed by the dietitian. His intake appears to be adequate. His weight is stable. - Physical Therapy Bed, Chair, Wheelchair Transfer Assist: Contact Guard Assistance Ambulation Ability: Total Assistance Ambulation Distance: 33 Stair Climbing Ability: Maximal Assistance Number of Steps Climbed: 6 Car Transfer Ability: Moderate Assistance Comments: Patient is progressing with physical therapy. He requires total assistance with ambulation 33 feet. Transfers are with contact-guard assistance. He is limited by pain and fatigue as well as reduced endurance and balance. He requires frequent rest breaks. - Occupational Therapy Eating Ability: Independent Grooming Ability: Modified Independent Bathing Ability: Minimal Assistance Upper Body Dressing Ability: Minimal Assistance Lower Body Dressing Ability: Minimal Assistance Tub Transfer Assist: Patient Unsafe/Unable Toileting Assist: Contact Guard Assistance Toilet Transfer Assist: Contact Guard Assistance Comments: Patient demonstrates of her lower body dressing with minimum assistance, bathing with minimum assistance. He requires minimum assistance for dressing due to increased fatigue with reaching and washing. - Goals Physical Therapy Goals: 02/23/18. 1. Ambulate 75 ft with SBA using FWW. 2. SBA with all transfers. Occupational Therapy Goals: 02/23/19: 1. Upper Body Dressing Modified Independent. 2. Lower Body Dressing Modified Independent. 3. All toileting tasks/transfers Modified Independent. 4. Simple meal prep Modified Independent. 5. Discharge planning. - Barriers to Discharge Barriers to Attaining Goals: Endurance (attempts at reduction in rest break frequency), Medical Limitation (dizziness/vertigo) - Care Plan Anticipated Length of Stay (days): 6 Anticipated DC Destination: Home, Self Care, Home Health Service I have led this team conference and agree with the plan. Interventions/Goals: Patient is making progress although his easy fatigability, reduced endurance and has a problem with vertigo. This tends to wax and wane. He is making progress and we will continue working with him with anticipated safe transition to his home environment on 03/01/2018.
--- NOTE | 2018-02-23 14:16 | IRU Progress Note ---
- Subjective/Serverity of Illness Date: 02/23/18 Upon my arrival this morning around 9:30 AM I evaluated Mr. Angel. He reported that he had had a difficult night. He was doing well until around 3:00 in the morning per his report. He got up to go the bathroom and at that time had sudden onset of vertigo. Initially he described this as feeling like things were "going dark." However he modified this to indicate it was a vertigo type of feeling. As nearly as I can determine his blood pressure was not low at that time. The patient does have history of vertigo dating from his recent fall with head injury. CT of the head done in [place] failed to reveal abnormalities. We are tapering his dose of meclizine per [facility] recommendation. Hospitalist was contacted (tele-hospitalist) last night and they moved up his meclizine to be given earlier. He had a difficult morning and was unable to participate much in therapy subsequently so therapy was held. Subsequently, he was feeling better and this afternoon we will resume therapy. He states that he is doing well at the present time. He specifically denied any shortness of breath or chest pain. His blood pressures have been adequately controlled and are neither high nor low. Repeat lab work was obtained. This shows an increase in his creatinine to 3.0 from 2.8. His INR is therapeutic at 2.79. He was also assessed by the hospitalist service here today. His family who is present with him indicated that they were told that he would stop his warfarin. We're not aware of that recommendation. I did contact his datawarehouse developer Dr. Choe with whom I spoke this afternoon. He indicates that he recommends discontinuing the warfarin. I have discussed this with the hospitalist service as well. I have called pharmacy to discontinue the warfarin. His blood sugars are reviewed. They're somewhat variable. He is on a sliding insulin scale. From a therapy standpoint, he does demonstrate progression and improvement. He does have easy fatigability and requires frequent rest breaks. Exam Vital Signs: Temperature 97.6 F 02/23/18 08:00 Pulse Rate 62 02/23/18 08:00 Respiratory Rate 20 02/23/18 08:00 Blood Pressure 111/53 02/23/18 08:00 Pulse Oximetry 95 06/15/18 08:00 Height/Weight/BMI: Height 1.8 m Weight 75.6 kg Body Mass Index 22.6 - Constitutional Present: mild distress (with vertigo), well nourished, well developed, cooperative - Routine HEENT Exam Head: Present: normocephalic Eye: Present: EOMI ENT: Present: mucous membranes moist, oropharynx clear - Routine Neck Exam Present: supple - Routine Respiratory Exam Present: decreased breath sounds, CTA bilaterally. Absent: wheezes - Routine Cardiovascular Exam Present: RRR, S1, S2, murmur - Routine Abdominal Exam Present: soft, normoactive bowel sounds, non distended. Absent: tenderness - Routine Extremities Exam Present: normal capillary refill - Routine Skin Exam Present: dry, warm - Routine Neurological Exam Present: alert, oriented X3, CN II-XII intact, normal speech. Absent: motor deficit, facial asymmetry I did not observe any nystagmus at this time but did not do a Jane-Hallpike maneuver. - Routine Psychiatric Exam Present: normal affect, normal thought process, cooperative, good insight, good judgment Results IRU - Labs Labs: I reviewed other providers notes, laboratory results, chart data and have visited with his datawarehouse developer. IRU A/P (1) Debility Current visit: No Status: Acute He continues to complain of weakness in the legs and difficulty with transfers. He is making progress with PT and OT and we will continue working with him. He has easy fatigability as would be anticipated from his congestive cardiomyopathy. (2) Vertigo Current visit: No Status: Acute He continues to experience episodes of vertigo since his head trauma. I think this is consistent with a postconcussive syndrome. We will use meclizine. Discussion was also had with regard to Transderm-Scop. I will defer that to the hospitalist service. (3) Diabetes mellitus type II, uncontrolled Qualifiers: Diabetes mellitus assisted insulin use: without shower doors and panels fabricator use Diabetes mellitus complication status: with circulatory complication Diabetes mellitus complication detail: with other circulatory complications Qualified Code(s): E11.59 - Type 2 diabetes mellitus with other circulatory complications; E11.65 - Type 2 diabetes mellitus with hyperglycemia Current visit: No Status: Chronic His blood sugars are noted. He is on a sliding insulin scale. (4) Systolic heart failure Qualifiers: Heart failure chronicity: chronic Qualified Code(s): I50.22 - Chronic systolic (congestive) heart failure Current visit: No Status: Chronic (5) Post-concussion vertigo Current visit: Yes Status: Acute DVT Prophylaxis: Coumadin Resuscitation Status: Do Not Resuscitate - Course Hospital Course: Ulysses Peoples MD: 02/20/18 14:55 Tolerating therapy well. Constipated. Wound care has seen him regarding the abrasions etc. 02/22/18 14:49 Wounds inspected. Stable. Tolerating therapy well. Continues to make progress. 02/23/18 14:20 He is struggling with episodes of vertigo. Easy fatigability with therapy. Nevertheless he is making therapeutic progress with functional activities. Discussed with Dr. Choe and we'll discontinue warfarin. - Interventions to Obtain Goals PT Treatment Plan: Balance/Proprioception, Functional Activities, Gait Training , Patient/Family Education, Therapeutic Exercise OT Treatment Plan: ADL (Basic Care), Balance Training, IADL, Pt./Family Education, Ther. Exercise for ADL Goals Progress/Modifications: I reevaluated the patient on several occasions today. I initially evaluated him first thing in the morning when I arrived, then mid morning, around noon and again this afternoon. Patient has had an episode of severe vertigo. This seems to have started when he hit his head when he fell in his home. Since that time he has had a negative CT scan. He does not have any other neurologic changes and denies headaches. For this reason we'll not repeat the CT scan at this time. I imagine this is a postconcussive syndrome. I also discussed the case with the hospitalist service as well as Dr. Choe. He recommends discontinuance of the warfarin and I contacted the pharmacy in this regard. It is noted that his BUN and creatinine are elevated. He is actually on a reduced dose of Bumex at 0.5 mg twice daily. We will continue to monitor. I have discussed the case with the therapist. We initially held therapy late this morning because of his vertigo but he is feeling better now so we will resume that. He is making progress with therapy.
[2018-02-23] MEDS: ATORVASTATIN 10 MG TABLET PO SCH (21:59)
[2018-02-23] MEDS: DOXEPIN 10 MG CAPSULE PO SCH (21:59)
[2018-02-23] MEDS: INSULIN GLARGINE 100unit/ml INJECTION SQ SCH (21:59)
[2018-02-23] MEDS: MELATONIN 1 MG TABLET PO SCH (22:01)
[2018-02-23] MEDS: ACETAMINOPHEN 325 MG TABLET PO PRN (22:09)
[2018-02-24] MEDS: OMEPRAZOLE 20 MG CAPSULE PO SCH ×2 (04:56→09:50)
[2018-02-24] MEDS: FOLIC ACID 1 MG TABLET PO SCH (09:25)
[2018-02-24] MEDS: SITAGLIPTIN 100 MG TABLET PO SCH (09:25)
[2018-02-24] MEDS: POLYETHYL GLYCOL 3350 17gm PACKET PO SCH (09:25)
[2018-02-24] MEDS: FERROUS SULFATE 324 MG TABLET PO SCH (09:25)
[2018-02-24] MEDS: DOCUSATE SODIUM 100 MG CAPSULE PO SCH (09:25)
[2018-02-24] MEDS: PredniSONE 5 MG TABLET PO SCH (09:26)
[2018-02-24] MEDS: CARVEDILOL 25 MG TABLET PO SCH ×2 (09:26→17:44)
[2018-02-24] MEDS: CALCIUM 600 + VIT D 400 TABLET PO SCH (09:26)
[2018-02-24] MEDS: BUMETANIDE 0.5 MG TABLET PO SCH ×2 (09:26→14:53)
[2018-02-24] MEDS: FEBUXOSTAT 40 MG TABLET PO SCH (09:26)
[2018-02-24] MEDS: MECLIZINE 12.5 MG TABLET PO SCH (09:27)
--- NOTE | 2018-02-24 11:47 | Progress Note ---
- Date 02/24/18 Subjective: Venancio was somnolent this morning - was hardly able to stay awake. Once staff was able to wake him up he was very confused, i.e. he tried to hold the TV remote up to his eyes as if it were glasses. He's c/o urinary frequency and states that he needs to void about every 2 minutes but isn't able to go. Bladder scan showed 325 mL. His scopolamine patch had already been dc'd earlier this morning. He denied any vertigo or spinning. He was alert and oriented to self, place, and month and identified his granddaughter appropriately. He couldn 't state the year. He is very unsteady and has difficulty supporting himself upright. He's needing assist x2 to ambulate. Objective Vital signs: Temperature 97.8 F 02/24/18 08:00 Pulse Rate 60 02/24/18 08:00 Respiratory Rate 16 02/24/18 08:00 Blood Pressure 126/59 02/24/18 08:00 Pulse Oximetry 96 02/24/18 08:00 Height/Weight/BMI: Height 1.8 m Weight 75.6 kg Body Mass Index 22.6 - Constitutional Present: well nourished, well developed, thin - Routine HEENT Exam Head: Present: normocephalic Eye: Absent: conjunctival icterus, scleral injection ENT: Present: oropharynx clear. Absent: dentition normal (decay) - Routine Respiratory Exam Present: CTA bilaterally - Routine Cardiovascular Exam Present: RRR, S1, S2 - Routine Abdominal Exam Present: soft, normoactive bowel sounds, non tender - Routine Extremities Exam Present: edema (1+ BLE) - Routine Skin Exam Present: dry, warm, wounds (multiple wounds/abrasions to legs. 3 wounds have mepilex dsg.) - Routine Neurological Exam Present: alert (drowsy), CN II-XII intact (grossly intact - unable to follow commands to test EOM), altered mental status, moving all extremities. Absent: motor deficit Results - Labs CBC & Chem 7: 02/24/18 04:19 02/24/18 04:19 Microbiology Results: Microbiology 02/20/18 21:37 Urine, Voided (Cc/notcc) Urine Culture - Final Coag negative Staphylococcus Assessment and Plan Assessment and Plan: Assessment Vertigo Acute encephalopathy Possible post-concussive syndrome Suspect UTI (02/24/18) Systolic heart failure with reported ejection fraction 10% Benign essential hypertension Atherosclerotic heart disease status post myocardial infarction A-fib Coagulopathy secondary to use of Coumadin Diabetes mellitus type 2 not on fci insulin, with vascular complications of heart disease GERD Chronic kidney disease stage IV Gout Prostate cancer Plan Encephalopathy - suspect secondary to scopolamine patch, which was dc'd. Will hold meclizine and melatonin as well. Consider holding PPI. No trauma or focal neuro deficits to suggest immediate need for CT head. Urinary retention - will straight cath and send for UA; urinary retention could also be a side effect from meds. Continue bladder scan. Hold KCl, K increased to 5.0. Cont Bumex; renal function relatively stable. Granddaughter reports creatinine baseline = 2.8. Coumadin dc'd after Dr. Peoples discussed case with Dr. Choe. Discussed with nursing staff and Dr. Beckett. Sophy Discussed with Dr Jansen-will have Haldol available prn agitation/ hallucinations. Did receive 0.5mg this afternoon; family member present in room report it helped, but effect was only short lived. UA showing evidence for infection - will start cephalexin and check urine C/S. GI Prophylaxis: Omeprazole Resuscitation Status: Do Not Resuscitate - Physician Narrative Physician: César Beckett MD Narrative: Date: 02/24/18 Time: 1551 Have independently interviewed and examined pt. Chart reviewed. Case discussed with Dr Jansen and CM. Above care plan developed with my supervision; agree with above. Rough day. Increased confusion. Has been having increased dizziness. Reports breathing well. No chest pain. Lungs: decreased CV: irregular AB: soft nt EXT: thin, no edema Plan: Discussed with Dr Jansen-will have Haldol available prn agitation/ hallucinations. Did receive 0.5mg this afternoon; family member present in room report it helped, but effect was only short lived. UA showing evidence for infection - will start cephalexin and check urine C/S. Hospital Course Summary Disclaimer: The visit summary below is not to be considered part of the above Progress Note. Hospital Course: 02/20/18 Agree with IRU orders per Dr. Peoples. Hx of dysphagia - may consider consulting speech therapy. DC Lovenox; no noted history of VTE and with hx of recent falls, anticoagulating with Coumadin and Lovenox has greater risk than benefit. Pharmacy consulted for Coumadin dosing. INR subtherapeutic on admit. Monitor renal function - baseline creatinine ranges 2.5-3.0 and was higher just recently while hospitalized in [place]. Wound RN has seen the patient and applied Mepilex (1 with Aquacel and 2 with Xeroform) dressings to the abrasions on his legs. Continue Januvia, Lantus HS for DM. Monitor sugars. High risk for CHF exacerbation and RODRIGUE. 02/23/18 Vertigo - cont meclizine; trial scopolamine patch and monitor for side effects. Slightly increasing BUN/creatinine - cont Bumex for now, recheck in am - may need to hold bumex/K Dr. Peolpes to discuss anticoag recommendations with Dr. Choe Hyperglycemia - increase Lantus to 7U, cont SSI. 02/24/18 Encephalopathy - suspect secondary to scopolamine patch, which was dc'd. Will hold meclizine and melatonin as well. Consider holding PPI. No trauma or focal neuro deficits to suggest immediate need for CT head. Discussed with Dr Jansen-will have Haldol available prn agitation/ hallucinations. Urinary retention - will straight cath and send for UA; urinary retention could also be a side effect from meds. Continue bladder scan. UA showing evidence for infection - will start cephalexin and check urine C/ S. Hold KCl, K increased to 5.0. Cont Bumex; renal function relatively stable. Granddaughter reports creatinine baseline = 2.8. Coumadin dc'd after Dr. Peoples discussed case with Dr. Choe.
[2018-02-24] MEDS ORDERED: HALOPERIDOL 5 MG/ML INJECTION IVP PRN (12:25)
[2018-02-24] MEDS: ACETAMINOPHEN 325 MG TABLET PO PRN ×2 (12:33→22:47)
[2018-02-24] MEDS: HALOPERIDOL 0.5 MG TABLET PO PRN ×2 (12:34→22:48)
[2018-02-24] MEDS: INSULIN ASPART 100unit/ml INJECTION SQ PRN ×2 (17:44→22:46)
[2018-02-24] MEDS: ATORVASTATIN 10 MG TABLET PO SCH (22:44)
[2018-02-24] MEDS: DOXEPIN 10 MG CAPSULE PO SCH (22:44)
[2018-02-24] MEDS: INSULIN GLARGINE 100unit/ml INJECTION SQ SCH (22:45)
[2018-02-25] MEDS: OMEPRAZOLE 20 MG CAPSULE PO SCH ×2 (05:12→08:07)
[2018-02-25] MEDS: FOLIC ACID 1 MG TABLET PO SCH (08:54)
[2018-02-25] MEDS: CARVEDILOL 25 MG TABLET PO SCH ×2 (08:54→17:35)
[2018-02-25] MEDS: FEBUXOSTAT 40 MG TABLET PO SCH (08:54)
[2018-02-25] MEDS: CALCIUM 600 + VIT D 400 TABLET PO SCH (08:54)
[2018-02-25] MEDS: PredniSONE 5 MG TABLET PO SCH (08:54)
[2018-02-25] MEDS: DOCUSATE SODIUM 100 MG CAPSULE PO SCH (08:54)
[2018-02-25] MEDS: FERROUS SULFATE 324 MG TABLET PO SCH (08:54)
[2018-02-25] MEDS: SITAGLIPTIN 100 MG TABLET PO SCH (08:54)
[2018-02-25] MEDS: BUMETANIDE 0.5 MG TABLET PO SCH ×2 (08:54→13:27)
[2018-02-25] MEDS: POLYETHYL GLYCOL 3350 17gm PACKET PO SCH (08:55)
--- NOTE | 2018-02-25 11:45 | Progress Note ---
- Date 02/25/18 Subjective: Patient is seen lying in bed this morning. He is sleeping but wakes up to his name. He has no current complaints. No CP, SOA, f/c, n/v. Nurse reports pt has seemed to improved quite a bit since starting the Keflex for UTI. Objective Vital signs: Temperature 98.6 F 02/25/18 07:50 Pulse Rate 60 02/25/18 07:50 Respiratory Rate 18 02/25/18 07:50 Blood Pressure 140/69 H 02/25/18 07:50 Pulse Oximetry 96 02/25/18 07:50 Height/Weight/BMI: Height 1.8 m Weight 75.3 kg Body Mass Index 22.6 - Constitutional Present: no acute distress, well nourished, well developed - Routine HEENT Exam Head: Present: normocephalic, atraumatic - Routine Respiratory Exam Present: CTA bilaterally. Absent: wheezes - Routine Cardiovascular Exam Present: RRR, no murmur - Routine Abdominal Exam Present: soft, non distended, non tender - Routine Extremities Exam Present: edema (1+), normal capillary refill - Routine Skin Exam Present: dry, warm - Routine Neurological Exam Absent: alert (drowsy) - Routine Lymphatic Exam Lymphatic: Absent: adenopathy - Routine Psychiatric Exam Present: cooperative Results - Labs CBC & Chem 7: 02/24/18 04:19 02/24/18 04:19 Microbiology Results: Microbiology 02/24/18 11:40 Urine, Voided (Cc/notcc) Urine Culture - Preliminary Gram Positive Cocci 02/20/18 21:37 Urine, Voided (Cc/notcc) Urine Culture - Final Coag negative Staphylococcus Assessment and Plan Assessment and Plan: Assessment Vertigo Acute encephalopathy - improved with tx for UTI Possible post-concussive syndrome UTI (02/24/18) Systolic heart failure with reported ejection fraction 10% Benign essential hypertension Atherosclerotic heart disease status post myocardial infarction A-fib Coagulopathy secondary to use of Coumadin Diabetes mellitus type 2 not on terminal system operator insulin, with vascular complications of heart disease GERD Chronic kidney disease stage IV Gout Prostate cancer Plan Continue cephalexin for UTI. Mental status has improved. He is more steady on his feet. Prelim UC gram + cocci. BS's reviewed - w/ exception of FBS of 80 this am, most sugars >200 and is receiving between 1-5 U SSI. Increase Lantus from 7 to 10U at hs and add Novolog 2 U ac bkfast and 4 U ac lunch and supper. Labs in am to follow blood count, renal function and electrolytes. Potassium currently on hold d/t hyperkalemia. Continues on Bumex. Vitals stable. - Physician Narrative Narrative: Date: 02/25/18 Time: 1145 Hospital Course Summary Disclaimer: The visit summary below is not to be considered part of the above Progress Note. Hospital Course: 02/20/18 Agree with IRU orders per Dr. Peoples. Hx of dysphagia - may consider consulting speech therapy. DC Lovenox; no noted history of VTE and with hx of recent falls, anticoagulating with Coumadin and Lovenox has greater risk than benefit. Pharmacy consulted for Coumadin dosing. INR subtherapeutic on admit. Monitor renal function - baseline creatinine ranges 2.5-3.0 and was higher just recently while hospitalized in [place]. Wound RN has seen the patient and applied Mepilex (1 with Aquacel and 2 with Xeroform) dressings to the abrasions on his legs. Continue Januvia, Lantus HS for DM. Monitor sugars. High risk for CHF exacerbation and RODRIGUE. 02/23/18 Vertigo - cont meclizine; trial scopolamine patch and monitor for side effects. Slightly increasing BUN/creatinine - cont Bumex for now, recheck in am - may need to hold bumex/K Dr. Peoples to discuss anticoag recommendations with Dr. Choe Hyperglycemia - increase Lantus to 7U, cont SSI. 02/24/18 Encephalopathy - suspect secondary to scopolamine patch, which was dc'd. Will hold meclizine and melatonin as well. Consider holding PPI. No trauma or focal neuro deficits to suggest immediate need for CT head. Discussed with Dr Jansen-will have Haldol available prn agitation/ hallucinations. Urinary retention - will straight cath and send for UA; urinary retention could also be a side effect from meds. Continue bladder scan. UA showing evidence for infection - will start cephalexin and check urine C/ S. Hold KCl, K increased to 5.0. Cont Bumex; renal function relatively stable. Granddaughter reports creatinine baseline = 2.8. Coumadin dc'd after Dr. Peoples discussed case with Dr. Choe. 02/25/18 Continue cephalexin for UTI. Mental status has improved. He is more steady on his feet. Prelim UC gram + cocci. BS's reviewed - w/ exception of FBS of 80 this am, most sugars >200 and is receiving between 1-5 U SSI. Increase Lantus from 7 to 10U at hs and add Novolog 2 U ac bkfast and 4 U ac lunch and supper. Labs in am to follow blood count, renal function and electrolytes. Potassium currently on hold d/t hyperkalemia. Continues on Bumex. Vitals stable.
[2018-02-25] MEDS: INSULIN ASPART 100unit/ml INJECTION SQ PRN ×3 (14:19→21:55)
[2018-02-25] MEDS: INSULIN ASPART 100unit/ml INJECTION SQ SCH (17:35)
[2018-02-25] MEDS: ATORVASTATIN 10 MG TABLET PO SCH (21:45)
[2018-02-25] MEDS: DOXEPIN 10 MG CAPSULE PO SCH (21:46)
[2018-02-25] MEDS: INSULIN GLARGINE 100unit/ml INJECTION SQ SCH (21:56)
[2018-02-25] MEDS: ACETAMINOPHEN 325 MG TABLET PO PRN (22:42)
[2018-02-26] MEDS: OMEPRAZOLE 20 MG CAPSULE PO SCH (06:14)
[2018-02-26] MEDS: INSULIN ASPART 100unit/ml INJECTION SQ PRN ×3 (06:15→21:11)
[2018-02-26 08:21] VITALS: BMI 23.1
[2018-02-26] MEDS: INSULIN ASPART 100unit/ml INJECTION SQ SCH ×3 (08:56→17:25)
[2018-02-26] MEDS ORDERED: MECLIZINE 12.5 MG TABLET PO SCH (09:00)
[2018-02-26] MEDS: BUMETANIDE 0.5 MG TABLET PO SCH ×2 (09:13→15:02)
[2018-02-26] MEDS: SITAGLIPTIN 100 MG TABLET PO SCH (09:13)
[2018-02-26] MEDS: CALCIUM 600 + VIT D 400 TABLET PO SCH (09:13)
[2018-02-26] MEDS: FOLIC ACID 1 MG TABLET PO SCH (09:13)
[2018-02-26] MEDS: DOCUSATE SODIUM 100 MG CAPSULE PO SCH (09:14)
[2018-02-26] MEDS: FEBUXOSTAT 40 MG TABLET PO SCH (09:14)
[2018-02-26] MEDS: CARVEDILOL 25 MG TABLET PO SCH ×2 (09:14→17:25)
[2018-02-26] MEDS: PredniSONE 5 MG TABLET PO SCH (09:14)
[2018-02-26] MEDS: FERROUS SULFATE 324 MG TABLET PO SCH (09:14)
[2018-02-26] MEDS: POLYETHYL GLYCOL 3350 17gm PACKET PO SCH (09:18)
[2018-02-26] MEDS: ACETAMINOPHEN 325 MG TABLET PO PRN (10:35)
[2018-02-26] MEDS ORDERED: SCOPOLAMINE PATCH REMOVAL TD SCH (13:45)
--- NOTE | 2018-02-26 14:27 | IRU Progress Note ---
- Subjective/Serverity of Illness Date: 02/26/18 Over the weekend, patient awakened and seemed to not know where he was for a short time. Tylenol hospitalist was contacted. Urinalysis was obtained indicating possibility of infection. Culture is growing coag-negative staph. He is currently on cephalexin. He remains afebrile. Therapy was held over the weekend but was restarted today. This morning however he awakened around 5:30 AM with nausea. Reports "dry heaves " but no actual emesis. Denies abdominal pain, dyspnea or chest pain. Was not able to eat breakfast. I saw him shortly after the breakfast time. Subsequently however he was able to eat lunch. He reports that his bowels are moving adequately. He denies any cough or sputum. Repeat lab is unremarkable. Hemoglobin stable and a creatinine of about the same at 2.7. Because therapy was held, no new therapy information is available at this time. Exam Vital Signs: Temperature 97.9 F 02/26/18 08:00 Pulse Rate 66 02/26/18 08:00 Respiratory Rate 15 02/26/18 08:00 Blood Pressure 107/56 02/26/18 08:00 Pulse Oximetry 95 02/26/18 08:00 Height/Weight/BMI: Height 1.8 m Weight 75.3 kg Body Mass Index 23.1 - Constitutional Present: mild distress (nausea), well nourished, well developed - Routine HEENT Exam Head: Present: normocephalic Eye: Present: EOMI ENT: Present: mucous membranes moist, oropharynx clear - Routine Neck Exam Present: supple - Routine Respiratory Exam Present: decreased breath sounds, CTA bilaterally. Absent: wheezes - Routine Cardiovascular Exam Present: RRR, S1, S2. Absent: murmur - Routine Abdominal Exam Present: soft, normoactive bowel sounds, non distended. Absent: tenderness - Routine Extremities Exam Present: no edema, normal capillary refill - Routine Skin Exam Present: dry, warm, ecchymosis - Routine Neurological Exam Present: alert, oriented X3, CN II-XII intact This morning, the patient was speaking in a somewhat "weak" voice. - Routine Psychiatric Exam Present: normal affect, normal thought process, cooperative Results IRU - Labs Labs: I have reviewed patient's lab, chart data and other providers notes. IRU A/P (1) Debility Current visit: No Status: Acute He continues to demonstrate quite a bit of debility. Therapy was held over the weekend due to his confusion and weakness. (2) Vertigo Current visit: No Status: Acute Reports episodes of vertigo yesterday but improved today. (3) Diabetes mellitus type II, uncontrolled Qualifiers: Diabetes mellitus custodial insulin use: without custodial use Diabetes mellitus complication status: with circulatory complication Diabetes mellitus complication detail: with other circulatory complications Qualified Code(s): E11.59 - Type 2 diabetes mellitus with other circulatory complications; E11.65 - Type 2 diabetes mellitus with hyperglycemia Current visit: No Status: Chronic His blood sugars remain a bit elevated. (4) Systolic heart failure Qualifiers: Heart failure chronicity: chronic Qualified Code(s): I50.22 - Chronic systolic (congestive) heart failure Current visit: No Status: Chronic (5) Post-concussion vertigo Current visit: Yes Status: Acute DVT Prophylaxis: Coumadin Resuscitation Status: Do Not Resuscitate - Course Hospital Course: Ulysses Peoples MD: 02/20/18 14:55 Tolerating therapy well. Constipated. Wound care has seen him regarding the abrasions etc. 02/22/18 14:49 Wounds inspected. Stable. Tolerating therapy well. Continues to make progress. 02/23/18 14:20 He is struggling with episodes of vertigo. Easy fatigability with therapy. Nevertheless he is making therapeutic progress with functional activities. Discussed with Dr. Choe and we'll discontinue warfarin. 02/26/18 14:28 Has some apparent confusion over the weekend. He is now on cephalexin for UTI with staph aureus coag negative. Nausea this morning. A bit weaker. Lungs remain clear however. - Interventions to Obtain Goals PT Treatment Plan: Balance/Proprioception, Functional Activities, Gait Training , Patient/Family Education, Therapeutic Exercise OT Treatment Plan: ADL (Basic Care), Balance Training, IADL, Pt./Family Education, Ther. Exercise for ADL Goals Progress/Modifications: Patient has become somewhat medically complex. Developed what appears to be UTI over the weekend with some mild confusion. At present he is nauseated. Still having vertigo but it appears to be improving a bit. He denies any abdominal pain. His weight is reviewed and is stable. I do not think he is more decompensated with regard to his heart failure which is severe as a baseline. We'll continue working with the patient for the time being. It is mild pain that he could start working with therapy again today if the nausea improves.
[2018-02-26] MEDS: DOXEPIN 10 MG CAPSULE PO SCH (20:58)
[2018-02-26] MEDS: ATORVASTATIN 10 MG TABLET PO SCH (20:59)
[2018-02-26] MEDS: INSULIN GLARGINE 100unit/ml INJECTION SQ SCH (21:11)
[2018-02-27] MEDS: INSULIN ASPART 100unit/ml INJECTION SQ PRN ×4 (06:15→20:36)
[2018-02-27] MEDS: OMEPRAZOLE 20 MG CAPSULE PO SCH (06:16)
[2018-02-27] MEDS: ACETAMINOPHEN 325 MG TABLET PO PRN (09:05)
[2018-02-27] MEDS: SITAGLIPTIN 100 MG TABLET PO SCH (09:05)
[2018-02-27] MEDS: FEBUXOSTAT 40 MG TABLET PO SCH (09:05)
[2018-02-27] MEDS: FOLIC ACID 1 MG TABLET PO SCH (09:05)
[2018-02-27] MEDS: POLYETHYL GLYCOL 3350 17gm PACKET PO SCH (09:05)
[2018-02-27] MEDS: BUMETANIDE 0.5 MG TABLET PO SCH ×2 (09:05→14:22)
[2018-02-27] MEDS: CALCIUM 600 + VIT D 400 TABLET PO SCH (09:05)
[2018-02-27] MEDS: INSULIN ASPART 100unit/ml INJECTION SQ SCH ×3 (09:06→17:15)
[2018-02-27] MEDS: FERROUS SULFATE 324 MG TABLET PO SCH (09:06)
[2018-02-27] MEDS: DOCUSATE SODIUM 100 MG CAPSULE PO SCH (09:06)
[2018-02-27] MEDS: CARVEDILOL 25 MG TABLET PO SCH ×2 (09:06→17:15)
[2018-02-27] MEDS: PredniSONE 5 MG TABLET PO SCH (09:06)
--- NOTE | 2018-02-27 14:43 | IRU Progress Note ---
- Subjective/Serverity of Illness Date: 02/27/18 Mr. Angel was reassess today on inpatient rehabilitation. He states that he is doing 100% better. His strength is back. He is making good progress with therapy particularly regarding sit to stand transfers according to the patient. He says that he feels comfortable going home in a couple of days. The patient's previous nausea and vertigo seemed to have resolved. His appetite has returned. He denies any chest pain. He denies any new shortness of breath. His vital signs are stable. Exam Vital Signs: Temperature 97.6 F 02/27/18 08:00 Pulse Rate 61 02/27/18 08:00 Respiratory Rate 16 02/27/18 08:00 Blood Pressure 109/62 02/27/18 08:00 Pulse Oximetry 93 02/27/18 08:00 Height/Weight/BMI: Height 1.8 m Weight 74.1 kg Body Mass Index 23.1 - Constitutional Present: no acute distress, well nourished, well developed, cooperative - Routine HEENT Exam Head: Present: normocephalic Eye: Present: EOMI ENT: Present: mucous membranes moist - Routine Respiratory Exam Present: decreased breath sounds, CTA bilaterally. Absent: wheezes - Routine Cardiovascular Exam Present: RRR, S1, S2. Absent: murmur - Routine Abdominal Exam Present: soft, normoactive bowel sounds, non distended. Absent: tenderness - Routine Extremities Exam Present: no edema, normal capillary refill - Routine Skin Exam Present: dry, warm - Routine Neurological Exam Present: alert, oriented X3, CN II-XII intact - Routine Psychiatric Exam Present: normal affect IRU A/P (1) Debility Current visit: No Status: Acute Patient is improving regarding his debilitation and weakness. He is progressing with therapy particular with regard to transfers. Anticipate safe transfer to his home environment in a couple of days. (2) Vertigo Current visit: No Status: Acute (3) Diabetes mellitus type II, uncontrolled Qualifiers: Diabetes mellitus meterman insulin use: without detention use Diabetes mellitus complication status: with circulatory complication Diabetes mellitus complication detail: with other circulatory complications Qualified Code(s): E11.59 - Type 2 diabetes mellitus with other circulatory complications; E11.65 - Type 2 diabetes mellitus with hyperglycemia Current visit: No Status: Chronic His blood sugars remain elevated. Management per hospitalist service. (4) Systolic heart failure Qualifiers: Heart failure chronicity: chronic Qualified Code(s): I50.22 - Chronic systolic (congestive) heart failure Current visit: No Status: Chronic (5) Post-concussion vertigo Current visit: Yes Status: Acute DVT Prophylaxis: Coumadin Resuscitation Status: Do Not Resuscitate - Course Hospital Course: Ulysses Peoples MD: 02/20/18 14:55 Tolerating therapy well. Constipated. Wound care has seen him regarding the abrasions etc. 02/22/18 14:49 Wounds inspected. Stable. Tolerating therapy well. Continues to make progress. 02/23/18 14:20 He is struggling with episodes of vertigo. Easy fatigability with therapy. Nevertheless he is making therapeutic progress with functional activities. Discussed with Dr. Choe and we'll discontinue warfarin. 02/26/18 14:28 Has some apparent confusion over the weekend. He is now on cephalexin for UTI with staph aureus coag negative. Nausea this morning. A bit weaker. Lungs remain clear however. 02/27/18 14:43 Patient states that his nausea and vertigo have resolved for the time being. He feels stronger. Exam is negative. Progressing with therapy. - Interventions to Obtain Goals PT Treatment Plan: Balance/Proprioception, Functional Activities, Gait Training , Patient/Family Education, Therapeutic Exercise OT Treatment Plan: ADL (Basic Care), Balance Training, IADL, Pt./Family Education, Ther. Exercise for ADL
[2018-02-27] MEDS: INSULIN GLARGINE 100unit/ml INJECTION SQ SCH (20:36)
[2018-02-27] MEDS: DOXEPIN 10 MG CAPSULE PO SCH (20:37)
[2018-02-27] MEDS: ATORVASTATIN 10 MG TABLET PO SCH (20:37)
[2018-02-28] MEDS: OMEPRAZOLE 20 MG CAPSULE PO SCH (06:12)
[2018-02-28] MEDS: SITAGLIPTIN 100 MG TABLET PO SCH (09:10)
[2018-02-28] MEDS: PredniSONE 5 MG TABLET PO SCH (09:11)
[2018-02-28] MEDS: DOCUSATE SODIUM 100 MG CAPSULE PO SCH (09:11)
[2018-02-28] MEDS: CALCIUM 600 + VIT D 400 TABLET PO SCH (09:11)
[2018-02-28] MEDS: BUMETANIDE 0.5 MG TABLET PO SCH ×2 (09:11→14:35)
[2018-02-28] MEDS: FOLIC ACID 1 MG TABLET PO SCH (09:11)
[2018-02-28] MEDS: FERROUS SULFATE 324 MG TABLET PO SCH (09:11)
[2018-02-28] MEDS: FEBUXOSTAT 40 MG TABLET PO SCH (09:11)
[2018-02-28] MEDS: CARVEDILOL 25 MG TABLET PO SCH ×2 (09:11→17:35)
[2018-02-28] MEDS: POLYETHYL GLYCOL 3350 17gm PACKET PO SCH (09:12)
[2018-02-28] MEDS: INSULIN ASPART 100unit/ml INJECTION SQ SCH ×3 (09:14→17:35)
[2018-02-28] MEDS ORDERED: FALL RISK - PHARMACY CONSULT MC ONE (10:40)
[2018-02-28] MEDS: INSULIN ASPART 100unit/ml INJECTION SQ PRN ×2 (12:09→20:20)
--- NOTE | 2018-02-28 16:29 | Progress Note ---
- Date 02/28/18 Subjective: Venancio is seen today while resting in his chair, watching TV. He is in good spirits and denies any complaints or concerns. His appetite is stable and bowels are moving. No chest pain, shortness of breath, abdominal pain, nausea, vomiting or dysuria. Blood sugars remain elevated. Improvement in blood sugars since lantus was increased to 10 units and Novolog 2 units at breakfast and 4 units at lunch and dinner was added on 02/25/18. Objective Vital signs: Temperature 98.5 F 02/28/18 15:15 Pulse Rate 60 02/28/18 15:15 Respiratory Rate 16 02/28/18 15:15 Blood Pressure 118/55 02/28/18 15:15 Pulse Oximetry 95 02/28/18 15:15 Height/Weight/BMI: Height 5 ft 11 in Weight 163 lb 5.8 oz Body Mass Index 23.1 Comments: Sitting in recliner, watching TV. - Constitutional Present: no acute distress, well nourished, well developed, cooperative - Routine HEENT Exam Head: Present: normocephalic, atraumatic Eye: Present: PERRL. Absent: conjunctival icterus ENT: Present: mucous membranes moist, oropharynx clear - Routine Respiratory Exam Present: CTA bilaterally. Absent: respiratory distress, wheezes - Routine Cardiovascular Exam Present: RRR, S1, S2 - Routine Abdominal Exam Present: soft, normoactive bowel sounds, non tender - Routine Extremities Exam Present: no edema, non tender, pulses intact - Routine Back/Spine/Pelvis Exam Back/Spine: Present: full ROM. Absent: vertebral tenderness - Routine Musculoskeletal Exam Musculoskeletal: Present: no clubbing or cyanosis, moving extremities well - Routine Skin Exam Present: intact, dry, warm Comments: Afebrile. - Routine Neurological Exam Present: alert, moving all extremities, hearing grossly intact, normal speech - Routine Lymphatic Exam Lymphatic: Absent: lymphedema - Routine Psychiatric Exam Present: cooperative Results - Labs CBC & Chem 7: 02/26/18 05:00 02/26/18 05:00 Microbiology Results: Microbiology 02/24/18 11:40 Urine, Voided (Cc/notcc) Urine Culture - Final Coag negative Staphylococcus 02/20/18 21:37 Urine, Voided (Cc/notcc) Urine Culture - Final Coag negative Staphylococcus Assessment and Plan Assessment and Plan: Assessment Vertigo Acute encephalopathy - improved with tx for UTI Possible post-concussive syndrome UTI (02/24/18) Systolic heart failure with reported ejection fraction 10% Benign essential hypertension 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 Continue therapies per Dr. Peoples. Based on urine sensitivities, will change from Keflex to Doxycycline for coverage of urinary Coag negative staphylococcus. Blood sugars remain elevated, though improved. Will increase lantus from 10 units to 12 units QHS. Meal insulin dosages may need adjustments as well. Will continue to monitor closely. Labs in am to follow blood count, renal function and electrolytes. Potassium remains on hold due to recent hyperkalemia. Continues on Bumex. Vitals stable. Resuscitation Status: Do Not Resuscitate - Time spent with patient Time with patient PN: 25 minutes - Physician Narrative Physician: other (Dr. Harley.) Narrative: Date: 02/28/18 Time: 1626 Hospital Course Summary Disclaimer: The visit summary below is not to be considered part of the above Progress Note. Hospital Course: 02/20/18 Agree with IRU orders per Dr. Peopels. Hx of dysphagia - may consider consulting speech therapy. DC Lovenox; no noted history of VTE and with hx of recent falls, anticoagulating with Coumadin and Lovenox has greater risk than benefit. Pharmacy consulted for Coumadin dosing. INR subtherapeutic on admit. Monitor renal function - baseline creatinine ranges 2.5-3.0 and was higher just recently while hospitalized in [place]. Wound RN has seen the patient and applied Mepilex (1 with Aquacel and 2 with Xeroform) dressings to the abrasions on his legs. Continue Januvia, Lantus HS for DM. Monitor sugars. High risk for CHF exacerbation and RODRIGUE. 02/23/18 Vertigo - cont meclizine; trial scopolamine patch and monitor for side effects. Slightly increasing BUN/creatinine - cont Bumex for now, recheck in am - may need to hold bumex/K Dr. Peoples to discuss anticoag recommendations with Dr. Choe Hyperglycemia - increase Lantus to 7U, cont SSI. 6/16/18 Encephalopathy - suspect secondary to scopolamine patch, which was dc'd. Will hold meclizine and melatonin as well. Consider holding PPI. No trauma or focal neuro deficits to suggest immediate need for CT head. Discussed with Dr Jansen-will have Haldol available prn agitation/ hallucinations. Urinary retention - will straight cath and send for UA; urinary retention could also be a side effect from meds. Continue bladder scan. UA showing evidence for infection - will start cephalexin and check urine C/ S. Hold KCl, K increased to 5.0. Cont Bumex; renal function relatively stable. Granddaughter reports creatinine baseline = 2.8. Coumadin dc'd after Dr. Peoples discussed case with Dr. Choe. 02/25/18 Continue cephalexin for UTI. Mental status has improved. He is more steady on his feet. Prelim UC gram + cocci. BS's reviewed - w/ exception of FBS of 80 this am, most sugars >200 and is receiving between 1-5 U SSI. Increase Lantus from 7 to 10U at hs and add Novolog 2 U ac bkfast and 4 U ac lunch and supper. Labs in am to follow blood count, renal function and electrolytes. Potassium currently on hold d/t hyperkalemia. Continues on Bumex. Vitals stable. 02/28 Overall, patient is doing well and making good gains. Continue therapies per Dr. Peoples. Based on urine sensitivities, will change from Keflex to Doxycycline for coverage of urinary Coag negative staphylococcus. Blood sugars remain elevated, though improved. Will increase lantus from 10 units to 12 units QHS. Meal insulin dosages may need adjustments as well. Will continue to monitor closely. Labs in am to follow blood count, renal function and electrolytes. Potassium remains on hold due to recent hyperkalemia. Continues on Bumex. Vitals stable.
[2018-02-28] MEDS: DOXEPIN 10 MG CAPSULE PO SCH (20:20)
[2018-02-28] MEDS: INSULIN GLARGINE 100unit/ml INJECTION SQ SCH (20:21)
[2018-02-28] MEDS: ACETAMINOPHEN 325 MG TABLET PO PRN (20:48)
[2018-02-28] MEDS: ATORVASTATIN 10 MG TABLET PO SCH (21:00)
[2018-03-01] MEDS: OMEPRAZOLE 20 MG CAPSULE PO SCH (05:47)
[2018-03-01] MEDS: BUMETANIDE 0.5 MG TABLET PO SCH ×2 (08:47→14:35)
[2018-03-01] MEDS: FEBUXOSTAT 40 MG TABLET PO SCH (08:47)
[2018-03-01] MEDS: FOLIC ACID 1 MG TABLET PO SCH (08:48)
[2018-03-01] MEDS: PredniSONE 5 MG TABLET PO SCH (08:48)
[2018-03-01] MEDS: CALCIUM 600 + VIT D 400 TABLET PO SCH (08:48)
[2018-03-01] MEDS: CARVEDILOL 25 MG TABLET PO SCH ×2 (08:48→18:35)
[2018-03-01] MEDS: SITAGLIPTIN 100 MG TABLET PO SCH (08:48)
[2018-03-01] MEDS: POLYETHYL GLYCOL 3350 17gm PACKET PO SCH (08:55)
[2018-03-01] MEDS: FERROUS SULFATE 324 MG TABLET PO SCH (08:55)
[2018-03-01] MEDS: DOCUSATE SODIUM 100 MG CAPSULE PO SCH (08:55)
[2018-03-01] MEDS: INSULIN ASPART 100unit/ml INJECTION SQ SCH ×3 (09:36→18:33)
[2018-03-01] MEDS: Oxycodone *IR* 5 MG TABLET PO PRN (11:02)
[2018-03-01] MEDS: INSULIN ASPART 100unit/ml INJECTION SQ PRN ×2 (14:33→20:46)
--- NOTE | 2018-03-01 14:36 | IRU Progress Note ---
- Subjective/Serverity of Illness Date: 03/01/18 Mr. Angel is interviewed and examined in his room with his family present. He remains quite complex medically. He has a very poor ejection fraction. Once again this morning he reports nausea. He had told the therapist that he was dizzy. Nevertheless his blood pressures remained stable. He denies any dyspnea. However, his weight is up some 3 kg. He was reassessed by the hospitalist service and was felt to possibly have urinary retention. For this reason a catheter was placed and about 200 cc was obtained. Catheter remains in place. His creatinine is roughly stable. We had to hold therapy this morning because he was feeling nauseous. When I evaluated him around 945 or 10 AM he was eating some breakfast and was feeling better. After that we did release him to participate in therapy. With this setback with anticipate that he will need additional therapy and plan to hold him a few more days. Family was concerned that he received the Transderm scopolamine patch. At the team meeting on 02/23/2018 mention was made about trying the patch. I offered my observation that the only concern I would have would be the issue of urinary retention and of course dry mouth. The hospitalist service did start Transderm-Scop that afternoon and the patient did have significant confusion that evening apparently. Family is concerned that we did not communicate adequately that I did not want him on the Transderm scopolamine. However, in truth I did not really state that I was opposed to it, but merely mentioned my concerns about the side effects of dry mouth and urinary retention. Nevertheless I have discussed this with the hospitalist service and thanked the family for their observations. Transderm-Scop has now been discontinued the next day after was started I believe. Exam Vital Signs: Temperature 97.6 F 03/01/18 07:44 Pulse Rate 60 03/01/18 07:44 Respiratory Rate 16 03/01/18 07:44 Blood Pressure 130/61 03/01/18 07:44 Pulse Oximetry 98 03/01/18 07:44 Height/Weight/BMI: Height 1.8 m Weight 77.6 kg Body Mass Index 23.1 - Constitutional Present: mild distress, well nourished, well developed - Routine HEENT Exam Eye: Present: EOMI ENT: Present: mucous membranes dry, oropharynx clear - Routine Respiratory Exam Present: decreased breath sounds, CTA bilaterally. Absent: wheezes - Routine Cardiovascular Exam Present: RRR, S1, S2. Absent: murmur - Routine Abdominal Exam Present: soft, normoactive bowel sounds, non distended. Absent: tenderness - Routine Extremities Exam Present: no edema, normal capillary refill - Routine Skin Exam Present: dry, warm - Routine Neurological Exam Present: alert, oriented X3, CN II-XII intact - Routine Psychiatric Exam Present: normal affect Results IRU - Labs Labs: Have reviewed the patient's chart including labs, chart data and have discussed with the hospitalist service at length. IRU A/P (1) Debility Current visit: No Status: Acute Continues to have generalized debility from his heart failure and falls. Remains off warfarin. Has had further nausea and possibly dizziness. That did improve as the morning wore on. Had to hold therapy for a little bit and then restarted. In view of all this, he would benefit from more days on inpatient rehabilitation which will be recommended. (2) Vertigo Current visit: No Status: Acute (3) Diabetes mellitus type II, uncontrolled Qualifiers: Diabetes mellitus group home insulin use: without group home use Diabetes mellitus complication status: with circulatory complication Diabetes mellitus complication detail: with other circulatory complications Qualified Code(s): E11.59 - Type 2 diabetes mellitus with other circulatory complications; E11.65 - Type 2 diabetes mellitus with hyperglycemia Current visit: No Status: Chronic (4) Systolic heart failure Qualifiers: Heart failure chronicity: chronic Qualified Code(s): I50.22 - Chronic systolic (congestive) heart failure Current visit: No Status: Chronic (5) Post-concussion vertigo Current visit: Yes Status: Acute DVT Prophylaxis: Coumadin Resuscitation Status: Do Not Resuscitate - Course Hospital Course: Ulysses Peoples MD: 02/20/18 14:55 Tolerating therapy well. Constipated. Wound care has seen him regarding the abrasions etc. 02/22/18 14:49 Wounds inspected. Stable. Tolerating therapy well. Continues to make progress. 02/23/18 14:20 He is struggling with episodes of vertigo. Easy fatigability with therapy. Nevertheless he is making therapeutic progress with functional activities. Discussed with Dr. Choe and we'll discontinue warfarin. 02/26/18 14:28 Has some apparent confusion over the weekend. He is now on cephalexin for UTI with staph aureus coag negative. Nausea this morning. A bit weaker. Lungs remain clear however. 02/27/18 14:43 Patient states that his nausea and vertigo have resolved for the time being. He feels stronger. Exam is negative. Progressing with therapy. 03/01/18 14:39 Redeveloped nausea and possibly vertigo. Weight up 3 kg for uncertain reasons. Hogan catheter placed. Therapy held and then restarted. - Interventions to Obtain Goals PT Treatment Plan: Balance/Proprioception, Functional Activities, Gait Training , Patient/Family Education, Therapeutic Exercise OT Treatment Plan: ADL (Basic Care), Balance Training, IADL, Pt./Family Education, Ther. Exercise for ADL Goals Progress/Modifications: Mr. Veliz continues to be medically complex. He has a severely reduced ejection fraction. He has gained 3 kg for no particular reason. There was question of urinary retention and therefore a catheter was placed but only 200 mL was obtained. In addition he has redeveloped nausea which he gets periodically. He has also reported vertigo. He has had some medical decline. Therapy was held initially and then restarted. In view of all this, I think it would be prudent to continue working with him a few more days. I have discussed with the hospitalist service at length on several occasions and we'll continue to monitor him carefully.
--- NOTE | 2018-03-01 17:00 | Ultrasound Report ---
Indication: ascites PROCEDURE: US liver: Encounter: Initial Comparison: None Technique: Grayscale and color Doppler sonographic imaging of the right upper quadrant of the abdomen was performed. Findings: Hepatic parenchyma is homogeneous without evidence for focal mass. The gallbladder is partially contracted. There is no gross wall thickening, pericholecystic fluid, sonographic Burk's sign or cholelithiasis. Both the intra and extrahepatic biliary system are of normal caliber with the common duct measuring 4 mm in dimension. Pancreas is not well seen due to shadowing bowel gas. The right kidney is present without collecting system dilatation. The right kidney measures 9.6 cm in length. Small amount of ascites. Bladder is completely decompressed by a Hogan catheter. Impression: Small amount of ascites, otherwise negative exam. .
[2018-03-01] MEDS: ATORVASTATIN 10 MG TABLET PO SCH (20:45)
[2018-03-01] MEDS: DOXEPIN 10 MG CAPSULE PO SCH (20:45)
[2018-03-01] MEDS: INSULIN GLARGINE 100unit/ml INJECTION SQ SCH (20:46)
[2018-03-02] MEDS: OMEPRAZOLE 20 MG CAPSULE PO SCH ×2 (04:08→06:01)
[2018-03-02] MEDS: INSULIN ASPART 100unit/ml INJECTION SQ PRN ×4 (07:17→20:40)
[2018-03-02] MEDS: SITAGLIPTIN 100 MG TABLET PO SCH (08:45)
[2018-03-02] MEDS: DOCUSATE SODIUM 100 MG CAPSULE PO SCH (08:46)
[2018-03-02] MEDS: CALCIUM 600 + VIT D 400 TABLET PO SCH (08:46)
[2018-03-02] MEDS: FOLIC ACID 1 MG TABLET PO SCH (08:46)
[2018-03-02] MEDS: BUMETANIDE 0.5 MG TABLET PO SCH ×2 (08:46→15:06)
[2018-03-02] MEDS: CARVEDILOL 25 MG TABLET PO SCH ×2 (08:46→18:04)
[2018-03-02] MEDS: PredniSONE 5 MG TABLET PO SCH (08:46)
[2018-03-02] MEDS: FERROUS SULFATE 324 MG TABLET PO SCH (08:46)
[2018-03-02] MEDS: FEBUXOSTAT 40 MG TABLET PO SCH (08:46)
[2018-03-02] MEDS: POLYETHYL GLYCOL 3350 17gm PACKET PO SCH (08:47)
[2018-03-02] MEDS: INSULIN ASPART 100unit/ml INJECTION SQ SCH ×3 (08:51→18:03)
--- NOTE | 2018-03-02 10:30 | IRU Progress Note ---
- Subjective/Serverity of Illness Date: 03/02/18 Venancio had just been up walking with therapy. When he got to the door to his room he became lightheaded and reported dizziness. He was noted to be somewhat confused for a transient period of time. He told me later that he didn't know where he was for a moment. VS obtained shortly thereafter showed a BP around 130. He was helped to his chair. I examined him shortly thereafter. He was sitting in his chair at the time of my evaluation and during that time he reported a sudden onset of further dizziness. At that point this seemed appear to be more of a vertigo type of sensation. He was fully oriented when I evaluated him. He denied any chest pain or shortness of breath whatsoever. He does have easy fatigability and requires rest breaks. The patient's weight is unchanged having gained 3 kg a couple days ago but has remained at that level since. He remains on Bumex 0.5 mg twice daily. His lungs remain clear with diminished breath sounds. During the time of his vertigo when I was interviewing him, I did not see any definite evidence of nystagmus. Neurologically he is intact and has good strength bilaterally in the upper and lower extremities. Review of his laboratory indicates stable creatinine at 2.7. BUN is elevated at around 91. His urinalysis however does not show a concentrated urine based on specific gravity. No evidence of infection on that either. His progress is slow secondary to his episodes of lightheadedness and easy fatigability. His liver ultrasound shows a small amount of ascites. I imagine that is related to his severely reduced ejection fraction. Exam Vital Signs: Temperature 97.9 F 03/02/18 08:00 Pulse Rate 60 03/02/18 08:00 Respiratory Rate 18 03/02/18 08:00 Blood Pressure 106/52 03/02/18 08:00 Pulse Oximetry 94 03/02/18 08:00 Height/Weight/BMI: Height 1.8 m Weight 77.7 kg Body Mass Index 23.1 - Constitutional Present: mild distress (dizzy/lightheaded), well nourished, well developed, thin , cooperative - Routine HEENT Exam Eye: Present: EOMI. Absent: nystagmus ENT: Present: mucous membranes dry - Routine Respiratory Exam Present: decreased breath sounds, CTA bilaterally. Absent: wheezes - Routine Cardiovascular Exam Present: RRR, S1, S2. Absent: murmur - Routine Abdominal Exam Present: soft, normoactive bowel sounds, non distended. Absent: tenderness - Routine Extremities Exam Present: normal capillary refill - Routine Skin Exam Present: dry, warm - Routine Neurological Exam Present: alert, oriented X3, CN II-XII intact, normal speech. Absent: motor deficit, facial asymmetry - Routine Psychiatric Exam Present: normal affect Results IRU - Labs Labs: Have reviewed other providers notes as well as liver sonogram and lab work. IRU A/P (1) Debility Current visit: No Status: Acute It is to display a lot of debility. Much of this was related to his underlying reduced ejection fraction. In addition he continues to struggle with episodes of either lightheadedness or vertigo. (2) Vertigo Current visit: No Status: Acute He had an episode this morning of sudden onset of lightheadedness. Upon further reflection this appears to be related to lightheadedness more than vertigo. Etiology of the vertigo likely is related to his previous head trauma which should be getting better. No other evidence of increased intracranial pressure. 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 (4) Systolic heart failure Qualifiers: Heart failure chronicity: chronic Qualified Code(s): I50.22 - Chronic systolic (congestive) heart failure Current visit: No Status: Chronic His systolic heart failure is severe. I imagine this accounts for his episodes of lightheadedness (not the vertigo). In addition this accounts for his ascites as well as easy fatigability. No certain there is a lot of house that can be done about this. We will monitor his weights carefully and work with the hospitalist service regarding additional diuresis. His creatinine remains stable at 2.7. (5) Post-concussion vertigo Current visit: Yes Status: Acute DVT Prophylaxis: Coumadin Resuscitation Status: Do Not Resuscitate - Course Hospital Course: Ulysses Peoples MD: 02/20/18 14:55 Tolerating therapy well. Constipated. Wound care has seen him regarding the abrasions etc. 02/22/18 14:49 Wounds inspected. Stable. Tolerating therapy well. Continues to make progress. 02/23/18 14:20 He is struggling with episodes of vertigo. Easy fatigability with therapy. Nevertheless he is making therapeutic progress with functional activities. Discussed with Dr. Choe and we'll discontinue warfarin. 02/26/18 14:28 Has some apparent confusion over the weekend. He is now on cephalexin for UTI with staph aureus coag negative. Nausea this morning. A bit weaker. Lungs remain clear however. 02/27/18 14:43 Patient states that his nausea and vertigo have resolved for the time being. He feels stronger. Exam is negative. Progressing with therapy. 03/01/18 14:39 Redeveloped nausea and possibly vertigo. Weight up 3 kg for uncertain reasons. Hogan catheter placed. Therapy held and then restarted. 03/02/18 10:36 Again had an episode of vertigo this morning. Seems stable at present. Progress is slow related to his underlying medical conditions. - Interventions to Obtain Goals PT Treatment Plan: Balance/Proprioception, Functional Activities, Gait Training , Patient/Family Education, Therapeutic Exercise OT Treatment Plan: ADL (Basic Care), Balance Training, IADL, Pt./Family Education, Ther. Exercise for ADL Goals Progress/Modifications: Mr. Veliz remains quite clinically complex. Had another episode of lightheadedness this morning while walking although follow-up blood pressure appeared to be adequate. I think much of his lightheadedness is related to reduced cardiac output from his extremely poor ejection fraction. This also likely accounts for his small amount of ascites on sonogram. Nevertheless he also has episodes of vertigo since he had fallen and hit his head. I think this is likely postconcussive related vertigo and will just take time to resolve. Did have an episode of what appeared to be transient confusion this morning in relationship to the lightheadedness. Again this likely is related to reduced cardiac output. I have discussed with the hospitalist service this morning. We will plan to remove the Hogan catheter. We will keep the diuresis as it is in view of his lightheadedness and precarious renal status. He does not have evidence of fluid excess at the present time other than his recent weight gain which has now been stable.
--- NOTE | 2018-03-02 11:34 | Progress Note ---
Progress Note: Therapy was attempting to work with Venancio again moments ago. He reported that he cannot move his right leg. Upon my urgent evaluation of him indeed the right leg and right arm is weaker than the left side. Mill Tender Warm Up strength is weaker in the right arm than the left arm. He is able to lift up his leg against resistance but it is significantly weaker than the left side. 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 Choe who recommended that the warfarin be discontinued. He continues to be lightheaded versus having vertigo. Clearly at the present time he is not able to participate in therapy. I have discussed this with the hospitalist service and they will obtain a CT scan. In addition we will start aspirin. His stat blood pressure is 107/60.
--- NOTE | 2018-03-02 13:06 | CT Scan Report ---
Indication: acute R sided weakness PROCEDURE: CT head/brain wo con: Encounter: Initial Comparison: February 12, 2018 Technique: Axial CT images through the head were performed without contrast. Iterative Reconstruction dose reducing technique was utilized. FINDINGS: Moderate atrophy. The ventricles are stable. There are scattered areas of low attenuation in the white matter which most likely represent changes from chronic microvascular ischemia. The brainstem, cerebellum, and cerebral hemispheres otherwise have a normal morphology and CT attenuation. There is no evidence of midline displacement. No hemorrhage, signs of acute territorial stroke, mass effect, mass lesions, or edema is evident. The visualized portions of the skull base, midface, and calvarium demonstrate no abnormality. The paranasal sinuses are well aerated and free of significant disease. The tympanic and mastoid cavities appear normal. IMPRESSION: No acute intracranial abnormality or hemorrhage. .
--- NOTE | 2018-03-02 13:35 | IRU Team Meeting ---
IRU Team Meeting - Nursing Bladder Assistive Devices Utilized:: Urinal Bladder Management Level of Assist: Modified Independent Bowel Assistive Devices Utilized:: Medication Bowel Management Level of Assist: Modified Independent Vital Signs: Vital Signs - 24 hr 03/01/18 15:20 03/01/18 23:51 03/02/18 08:00 Temperature 97.7 F 97.8 F 97.9 F Pulse Rate 59 L 70 60 Respiratory Rate 16 18 Blood Pressure 113/57 125/65 106/52 Pulse Oximetry 99 96 94 03/02/18 11:30 Temperature Pulse Rate 60 Respiratory Rate Blood Pressure 107/60 Pulse Oximetry Current Medications: Acetaminophen (Tylenol) 650 mg PO Q4HR PRN PRN Reason: Pain Last Admin: 02/28/18 20:48 Dose: 650 mg Atorvastatin Calcium (Lipitor) 10 mg PO [facility] Last Admin: 03/01/18 20:45 Dose: 10 mg Bisacodyl (Dulcolax) 10 mg RECTALLY DAILY PRN PRN Reason: Constipation Last Admin: 02/20/18 19:53 Dose: 10 mg Bumetanide (Bumex 0.5 Mg Tab) 0.5 mg PO 0900,1400 [facility] Last Admin: 03/02/18 08:46 Dose: 0.5 mg Calcium/Vitamin D (Caltrate + D) 1 tab PO DAILY [facility] Last Admin: 03/02/18 08:46 Dose: 1 tab Carvedilol (Coreg) 25 mg PO BIDWM [facility] Last Admin: 03/02/18 08:46 Dose: 25 mg Cephalexin HCl (Keflex 500 Mg) 500 mg PO Q6HR [facility] Last Admin: 03/02/18 08:46 Dose: 500 mg Docusate Sodium (Colace) 100 mg PO DAILY [facility] Last Admin: 03/02/18 08:46 Dose: 100 mg Doxepin HCl (Sinequan) 10 mg PO HS [facility] Last Admin: 03/01/18 20:45 Dose: 10 mg Febuxostat (Uloric) 40 mg PO DAILY [facility] Last Admin: 03/02/18 08:46 Dose: 40 mg Ferrous Sulfate (Feosol) 324 mg PO WB [facility] Last Admin: 03/02/18 08:46 Dose: 324 mg Folic Acid (Folate) 1 mg PO DAILY [facility] Last Admin: 03/02/18 08:46 Dose: 1 mg Glucose (Glutose 15) 37.5 gm PO PRN PRN PRN Reason: Hypoglycemia Guaifenesin (Mucinex La) 600 mg PO BID PRN PRN Reason: Congestion Haloperidol (Haldol) 0.5 mg PO Q6H PRN Last Admin: 02/24/18 22:48 Dose: 0.5 mg Haloperidol Lactate (Haldol) 0.5 mg IVP Q6H PRN Insulin Aspart (Novolog) 1 - 5 unit SQ SS PRN; Protocol PRN Reason: Hyperglycemia Last Admin: 03/02/18 10:36 Dose: 2 unit Insulin Aspart (Novolog) 4 unit SQ ACL [facility] Last Admin: 03/02/18 12:44 Dose: 4 unit Insulin Aspart (Novolog) 2 unit SQ ACB [facility] Last Admin: 03/02/18 08:51 Dose: 2 unit Insulin Aspart (Novolog) 4 unit SQ ACS [facility] Last Admin: 03/01/18 18:33 Dose: 4 unit Insulin Glargine (Lantus) 12 unit SQ HS [facility] Last Admin: 03/01/18 20:46 Dose: 12 unit Magnesium Hydroxide (Mom) 30 ml PO DAILY PRN PRN Reason: Constipation Meclizine HCl (Antivert) 12.5 mg PO TID [facility] Melatonin (Melatonin) 3 mg PO HS [facility] Last Admin: 02/23/18 22:01 Dose: 3 mg Omeprazole (Prilosec) 20 mg PO ACB [facility] Last Admin: 03/02/18 06:01 Dose: Not Given Oxycodone HCl (Roxicodone *Ir*) 5 mg PO Q6H PRN PRN Reason: Pain Last Admin: 03/01/18 11:02 Dose: 5 mg Polyethylene Glycol (Miralax) 17 gm PO DAILY [facility] Last Admin: 03/02/18 08:47 Dose: 17 gm Potassium Chloride (Micro-K 10 Meq Capsule) 10 meq PO WB [facility] Last Admin: 02/24/18 09:51 Dose: Not Given Prednisone (Deltasone 5 Mg) 5 mg PO WB [facility] Last Admin: 03/02/18 08:46 Dose: 5 mg Senna (Ex-Lax Maximum Strength) 25 mg PO DAILY PRN PRN Reason: Constipation Last Admin: 02/20/18 06:04 Dose: 25 mg Sitagliptin Phosphate (Januvia) 25 mg PO DAILY [facility] Last Admin: 03/02/18 08:45 Dose: 25 mg Current Medical Issues: Congestive cardiomyopathy with ejection fraction 10%, vertigo, dizziness/ lightheadedness Comments: I certify that I personally led the interdisciplinary team meeting and agree with comments, barriers and goals indicated. Team meeting was held in the patient's room with the patient and the following family members present: Patient's 2 daughters and son-in-law Mr. Veliz has had repeated episodes of both vertigo and lightheadedness. Blood pressure has been around 105-107 systolic at times. Today developed right- sided weakness. Stat CT scan was unchanged failing to reveal hemorrhage. Hospitalist services involved and started aspirin. He is feeling better at the present time. - Physical Therapy Bed, Chair, Wheelchair Transfer Assist: Maximal Assistance, 1 Person Assist Ambulation Ability: Moderate Assistance, 1 Person Assist Ambulation Distance: 20 Wheelchair Propulsion Ability: Total Assistance Wheelchair Propulsion Distance: 28 Stair Climbing Ability: Patient Unsafe/Unable Number of Steps Climbed: 6 Car Transfer Ability: Patient Refuses Comments: Efforts at working with 4 wheeled walker will be undertaken as that is what he has at home. Progress is limited by medical issues with regard to vertigo as well as lightheadedness. Therapy was held temporarily but will be restarted. - Occupational Therapy Eating Ability: Modified Independent Grooming Ability: Modified Independent Bathing Ability: Minimal Assistance Upper Body Dressing Ability: Stand By Assist/Supervision Lower Body Dressing Ability: Maximal Assistance Tub Transfer Assist: Patient Unsafe/Unable Toileting Assist: Moderate Assistance Toilet Transfer Assist: Contact Guard Assistance Comments: Patient is able to perform transfers with contact guard assistance. Upper and lower body dressing is with standby assist and minimal assistance respectively. He has been complaining of dizziness/vertigo and requires contact-guard assistance for all standing and mobility. - Goals Physical Therapy Goals: 02/23/18. 1.) Ambulate 75 ft with SBA using FWW.- partially met, requires CGA. 2.) Standby-assist with all transfers. - not met, continue. 03/01/18. 1.) Modified [place] with all transfers. 2.) Modified [place] with ambulation with use of four-wheeled walker. Occupational Therapy Goals: 02/23/19: 1. Upper Body Dressing Modified Independent. 2. Lower Body Dressing Modified Independent. 3. All toileting tasks/transfers Modified Independent. 4. Simple meal prep Modified Independent. 5. Discharge planning. - Barriers to Discharge Barriers to Attaining Goals: Weakness (patient has reduced strength. Working on progressive resistive exercises to address.), Endurance (patient demonstrates reduced activity tolerance. Working on fear rest breaks and increased activity time.) - Care Plan Anticipated Length of Stay (days): 5 Anticipated DC Destination: Home, Self Care, Home Health Service I have led this team conference and agree with the plan. Interventions/Goals: Because of this patient's multiple medical problems, we will reassess things in 3 days. Continue working with patient. Additional goal be to walk 2 additional times with nursing in addition to therapy.
--- NOTE | 2018-03-02 13:47 | Progress Note ---
Progress Note: Patient's CT scan shows no acute changes and no bleed. Have discussed with the hospitalist and they will start aspirin. He feels better at the present time after eating. He would like to go ahead and start therapy again which will be resumed. I advised the patient and his family of the results of the CT scan as well as the previous liver sonogram. Family wondered about restarting meclizine because of his vertigo. We will go ahead and do that. In addition they wonder about hypoglycemia. However his sugars been running quite elevated so I doubt that is a cause although we will keep an eye on it.
[2018-03-02] MEDS: MECLIZINE 12.5 MG TABLET PO SCH ×2 (15:06→20:40)
[2018-03-02] MEDS: ASPIRIN 81 MG CHEWABLE TABLET PO SCH (15:06)
[2018-03-02] MEDS: ACETAMINOPHEN 325 MG TABLET PO PRN (15:49)
--- NOTE | 2018-03-02 15:59 | Progress Note ---
Progress Note: Pt had a lightheaded episode earlier this am with nl VSS's at that time. He later had more of his vertigo sensation which has been typical for him. He then had c/o R sided weakness confirmed by Dr. Peoples . CT head was performed showing nothing acute at this time. Pt was recently taken off of coumadin per Dr. Choe given his high fall risk. Pt is in chronic afib. Suspect this is a TIA resulting from afib. Will not proceed with further w-u at this time. Start ASA 81mg and follow closely.
[2018-03-02] MEDS: INSULIN GLARGINE 100unit/ml INJECTION SQ SCH (20:40)
[2018-03-02] MEDS: DOXEPIN 10 MG CAPSULE PO SCH (20:40)
[2018-03-02] MEDS: ATORVASTATIN 10 MG TABLET PO SCH (20:40)
[2018-03-03] MEDS: OMEPRAZOLE 20 MG CAPSULE PO SCH (05:57)
[2018-03-03] MEDS: POLYETHYL GLYCOL 3350 17gm PACKET PO SCH (08:58)
[2018-03-03] MEDS: INSULIN ASPART 100unit/ml INJECTION SQ SCH ×3 (08:59→17:44)
[2018-03-03] MEDS: SITAGLIPTIN 100 MG TABLET PO SCH (08:59)
[2018-03-03] MEDS: DOCUSATE SODIUM 100 MG CAPSULE PO SCH (09:00)
[2018-03-03] MEDS: CARVEDILOL 25 MG TABLET PO SCH ×2 (09:00→17:44)
[2018-03-03] MEDS: FEBUXOSTAT 40 MG TABLET PO SCH (09:00)
[2018-03-03] MEDS: FERROUS SULFATE 324 MG TABLET PO SCH (09:00)
[2018-03-03] MEDS: CALCIUM 600 + VIT D 400 TABLET PO SCH (09:00)
[2018-03-03] MEDS: BUMETANIDE 0.5 MG TABLET PO SCH ×2 (09:00→14:31)
[2018-03-03] MEDS: MECLIZINE 12.5 MG TABLET PO SCH ×3 (09:00→21:37)
[2018-03-03] MEDS: FOLIC ACID 1 MG TABLET PO SCH (09:00)
[2018-03-03] MEDS: PredniSONE 5 MG TABLET PO SCH (09:00)
[2018-03-03] MEDS: ASPIRIN 81 MG CHEWABLE TABLET PO SCH (09:01)
[2018-03-03] MEDS: INSULIN ASPART 100unit/ml INJECTION SQ PRN ×3 (11:08→21:36)
[2018-03-03] MEDS: DOXEPIN 10 MG CAPSULE PO SCH (21:36)
[2018-03-03] MEDS: INSULIN GLARGINE 100unit/ml INJECTION SQ SCH (21:36)
[2018-03-03] MEDS: ATORVASTATIN 10 MG TABLET PO SCH (21:37)
[2018-03-04] MEDS: OMEPRAZOLE 20 MG CAPSULE PO SCH (06:33)
[2018-03-04] MEDS: INSULIN ASPART 100unit/ml INJECTION SQ PRN ×3 (06:44→20:47)
[2018-03-04] MEDS: POLYETHYL GLYCOL 3350 17gm PACKET PO SCH (09:02)
[2018-03-04] MEDS: CARVEDILOL 25 MG TABLET PO SCH ×2 (09:04→17:35)
[2018-03-04] MEDS: ASPIRIN 81 MG CHEWABLE TABLET PO SCH (09:04)
[2018-03-04] MEDS: PredniSONE 5 MG TABLET PO SCH (09:04)
[2018-03-04] MEDS: FEBUXOSTAT 40 MG TABLET PO SCH (09:04)
[2018-03-04] MEDS: FOLIC ACID 1 MG TABLET PO SCH (09:04)
[2018-03-04] MEDS: SITAGLIPTIN 100 MG TABLET PO SCH (09:04)
[2018-03-04] MEDS: FERROUS SULFATE 324 MG TABLET PO SCH (09:04)
[2018-03-04] MEDS: BUMETANIDE 0.5 MG TABLET PO SCH ×2 (09:05→14:52)
[2018-03-04] MEDS: MECLIZINE 12.5 MG TABLET PO SCH ×3 (09:05→20:48)
[2018-03-04] MEDS: INSULIN ASPART 100unit/ml INJECTION SQ SCH ×3 (09:05→17:35)
[2018-03-04] MEDS: CALCIUM 600 + VIT D 400 TABLET PO SCH (09:05)
[2018-03-04] MEDS: DOCUSATE SODIUM 100 MG CAPSULE PO SCH (09:05)
[2018-03-04] MEDS: ACETAMINOPHEN 325 MG TABLET PO PRN (19:12)
[2018-03-04] MEDS: Oxycodone *IR* 5 MG TABLET PO PRN (20:47)
[2018-03-04] MEDS: ATORVASTATIN 10 MG TABLET PO SCH (20:48)
[2018-03-04] MEDS: DOXEPIN 10 MG CAPSULE PO SCH (20:48)
[2018-03-04] MEDS: INSULIN GLARGINE 100unit/ml INJECTION SQ SCH (22:13)
[2018-03-05] MEDS: OMEPRAZOLE 20 MG CAPSULE PO SCH (06:01)
[2018-03-05] MEDS: INSULIN ASPART 100unit/ml INJECTION SQ SCH ×3 (08:26→17:08)
[2018-03-05] MEDS: CALCIUM 600 + VIT D 400 TABLET PO SCH (08:26)
[2018-03-05] MEDS: DOCUSATE SODIUM 100 MG CAPSULE PO SCH (08:26)
[2018-03-05] MEDS: PredniSONE 5 MG TABLET PO SCH (08:26)
[2018-03-05] MEDS: ASPIRIN 81 MG CHEWABLE TABLET PO SCH (08:26)
[2018-03-05] MEDS: POLYETHYL GLYCOL 3350 17gm PACKET PO SCH (08:26)
[2018-03-05] MEDS: BUMETANIDE 0.5 MG TABLET PO SCH ×2 (08:26→14:45)
[2018-03-05] MEDS: FEBUXOSTAT 40 MG TABLET PO SCH (08:27)
[2018-03-05] MEDS: SITAGLIPTIN 100 MG TABLET PO SCH (08:27)
[2018-03-05] MEDS: MECLIZINE 12.5 MG TABLET PO SCH ×3 (08:27→21:30)
[2018-03-05] MEDS: FERROUS SULFATE 324 MG TABLET PO SCH (08:27)
[2018-03-05] MEDS: CARVEDILOL 25 MG TABLET PO SCH ×2 (08:27→17:08)
[2018-03-05] MEDS: FOLIC ACID 1 MG TABLET PO SCH (08:27)
--- NOTE | 2018-03-05 12:16 | IRU Progress Note ---
- Subjective/Serverity of Illness Date: 03/05/18 Venancio tells me this morning that he is feeling better and stronger. His vertigo has improved. His nausea is resolved. The patient's right-sided weakness appears to have resolved. It may recur briefly at the end of and exercise. According therapy. Otherwise he seems to be fairly stable in this regard. CT scan failed to demonstrate evidence of acute process including no bleed. He is off warfarin per recognition of his head of it. He denies any chest pain and denies shortness of breath. His weight is slightly up. Remains on diuretics. He reports that he feels "bloated." Hogan catheter failed to relieve this. His appetite is reasonably good. Weight gain may well be related to increased caloric intake. However, it is not clear that he is actually stable to go home at this time. He has loss of balance episodes. When he was walking with therapy he did develop more vertigo with definite nystagmus. Discussed with therapy and they feel they can continue working with him and improve his balance and improve his vertigo. Review of his labs was undertaken. Hemoglobin stable at 10.6. White count is normal. Creatinine improved at 2.4. His blood pressures remained stable at typically 120 range. Occasionally they are less. His Bumex remains at 0.5 mg twice daily. We'll discuss with hospitalists to see if we want to increase that a bit. Exam Vital Signs: Temperature 97.6 F 03/05/18 08:00 Pulse Rate 60 03/05/18 08:00 Respiratory Rate 16 03/05/18 08:00 Blood Pressure 102/59 03/05/18 08:00 Pulse Oximetry 97 03/05/18 08:00 Height/Weight/BMI: Height 1.8 m Weight 79.5 kg Body Mass Index 23.1 - Constitutional Present: no acute distress, well nourished, well developed, cooperative - Routine HEENT Exam Eye: Present: EOMI ENT: Present: mucous membranes moist, oropharynx clear - Routine Neck Exam Present: supple - Routine Respiratory Exam Present: decreased breath sounds, CTA bilaterally. Absent: wheezes - Routine Cardiovascular Exam Present: RRR, S1, S2. Absent: murmur - Routine Abdominal Exam Present: soft, normoactive bowel sounds, non distended. Absent: tenderness - Routine Extremities Exam Present: no edema, normal capillary refill - Routine Skin Exam Present: dry, warm, ecchymosis - Routine Neurological Exam Present: alert, oriented X3, CN II-XII intact, normal speech. Absent: motor deficit (other than generalized weakness.), facial asymmetry - Routine Psychiatric Exam Present: normal affect, normal thought process, cooperative Results IRU - Labs Labs: I have reviewed recent labs, chart data and other providers notes. IRU A/P (1) Debility Current visit: No Status: Acute Continues to demonstrate debility although improving with therapy. (2) Vertigo Current visit: No Status: Acute Continues to have episodes of vertigo. Therapy is working with him in this regard. Improvement is anticipated. (3) Diabetes mellitus type II, uncontrolled Qualifiers: Diabetes mellitus group home insulin use: without confectionery maker use Diabetes mellitus complication status: with circulatory complication Diabetes mellitus complication detail: with other circulatory complications Qualified Code(s): E11.59 - Type 2 diabetes mellitus with other circulatory complications; E11.65 - Type 2 diabetes mellitus with hyperglycemia Current visit: No Status: Chronic His blood sugars continue to be elevated. He is on long-acting insulin as well as mealtime insulin. Management per hospitalist service. (4) Systolic heart failure Qualifiers: Heart failure chronicity: chronic Qualified Code(s): I50.22 - Chronic systolic (congestive) heart failure Current visit: No Status: Chronic Continues to demonstrate weight gain. We'll discuss with hospitalist service the possibility of increasing his Bumex. (5) Post-concussion vertigo Current visit: Yes Status: Acute DVT Prophylaxis: Coumadin Resuscitation Status: Do Not Resuscitate - Course Hospital Course: Ulysses Peoples MD: 02/20/18 14:55 Tolerating therapy well. Constipated. Wound care has seen him regarding the abrasions etc. 02/22/18 14:49 Wounds inspected. Stable. Tolerating therapy well. Continues to make progress. 02/23/18 14:20 He is struggling with episodes of vertigo. Easy fatigability with therapy. Nevertheless he is making therapeutic progress with functional activities. Discussed with Dr. Choe and we'll discontinue warfarin. 02/26/18 14:28 Has some apparent confusion over the weekend. He is now on cephalexin for UTI with staph aureus coag negative. Nausea this morning. A bit weaker. Lungs remain clear however. 02/27/18 14:43 Patient states that his nausea and vertigo have resolved for the time being. He feels stronger. Exam is negative. Progressing with therapy. 03/01/18 14:39 Redeveloped nausea and possibly vertigo. Weight up 3 kg for uncertain reasons. Hogan catheter placed. Therapy held and then restarted. 03/02/18 10:36 Again had an episode of vertigo this morning. Seems stable at present. Progress is slow related to his underlying medical conditions. 03/05/18 12:18 Nausea and vertigo improved. However developed vertigo with ambulation. Right-sided weakness appears to be resolved except with fatigue. - Interventions to Obtain Goals PT Treatment Plan: Balance/Proprioception, Functional Activities, Gait Training , Patient/Family Education, Therapeutic Exercise OT Treatment Plan: ADL (Basic Care), Balance Training, IADL, Pt./Family Education, Ther. Exercise for ADL Goals Progress/Modifications: Patient continues to be medically complex. Weight is up. We'll discuss with the hospitalist the possibility of increasing his Bumex. Still feels "bloated" in his abdomen. Small amount of ascites was identified likely related to his severe systolic heart failure. He is cooperative with therapy. Continues to demonstrate vertigo if he holds his head in the same position for a prolonged time. Discussed with therapy and they believe they can help him in this regard. Not certain he is safe to return home at present due to imbalance.
--- NOTE | 2018-03-05 14:42 | Progress Note ---
Progress Note: Balance Staff Inspector Beatriz Perrin RN and I met with the patient and his 2 daughters. Questions were addressed. I had previously discussed the case with Santino, licensed physical therapist assistant. Patient still is unstable on his feet and is prone to falling. He has imbalance and episodes of vertigo. Santino believes that he can work with the patient and reduce his fall risk by working on the vertigo. Therefore we recommend the patient stay in the hospital on rehabilitation for another 3 days with anticipated date of dismissal , 02/28/2018. In addition, we discussed the possibility of increasing his Bumex. I will discuss with the hospitalists in this regard. This would be based on his weight gain predominantly.
[2018-03-05] MEDS: INSULIN ASPART 100unit/ml INJECTION SQ PRN ×2 (14:50→21:30)
[2018-03-05] MEDS: ACETAMINOPHEN 325 MG TABLET PO PRN ×2 (17:55→20:18)
--- NOTE | 2018-03-05 19:49 | Progress Note ---
Progress Note: Reviewed BS's. Increase Lantus from 12 to 15U. Increase supper novolog from 4 to 6 u.
[2018-03-05] MEDS: DOXEPIN 10 MG CAPSULE PO SCH (21:30)
[2018-03-05] MEDS: ATORVASTATIN 10 MG TABLET PO SCH (21:30)
[2018-03-05] MEDS: INSULIN GLARGINE 100unit/ml INJECTION SQ SCH (21:30)
[2018-03-05] MEDS: Oxycodone *IR* 5 MG TABLET PO PRN (21:33)
[2018-03-06] MEDS: OMEPRAZOLE 20 MG CAPSULE PO SCH (06:14)
[2018-03-06 08:33] VITALS: RESP 16
[2018-03-06] MEDS: CALCIUM 600 + VIT D 400 TABLET PO SCH (08:33)
[2018-03-06] MEDS: PredniSONE 5 MG TABLET PO SCH (08:33)
[2018-03-06] MEDS: FEBUXOSTAT 40 MG TABLET PO SCH (08:33)
[2018-03-06] MEDS: BUMETANIDE 0.5 MG TABLET PO SCH ×3 (08:33→14:22)
[2018-03-06] MEDS: POLYETHYL GLYCOL 3350 17gm PACKET PO SCH (08:33)
[2018-03-06] MEDS: ASPIRIN 81 MG CHEWABLE TABLET PO SCH (08:33)
[2018-03-06] MEDS: CARVEDILOL 25 MG TABLET PO SCH ×2 (08:34→17:25)
[2018-03-06] MEDS: DOCUSATE SODIUM 100 MG CAPSULE PO SCH (08:34)
[2018-03-06] MEDS: MECLIZINE 12.5 MG TABLET PO SCH ×3 (08:34→20:35)
[2018-03-06] MEDS: FOLIC ACID 1 MG TABLET PO SCH (08:34)
[2018-03-06] MEDS: INSULIN ASPART 100unit/ml INJECTION SQ SCH ×3 (08:34→17:25)
[2018-03-06] MEDS: FERROUS SULFATE 324 MG TABLET PO SCH (08:34)
[2018-03-06] MEDS: SITAGLIPTIN 100 MG TABLET PO SCH (08:34)
--- NOTE | 2018-03-06 12:11 | IRU Progress Note ---
- Subjective/Serverity of Illness Date: 03/06/18 Mr. Angel was reassessed in his room. He continues to have episodes of vertigo. Therapy is specifically directing intervention at this. He does have easy fatigability as anticipated with his markedly low ejection fraction. Have not reassess his weight so we will order that daily. In view of his weight gain previously will increase his Bumex to 1 mg twice daily. From a therapy standpoint he is doing well. He feels more and more confident that he will be able to successfully transfer to home in a couple of days. Exam Vital Signs: Temperature 97.6 F 03/06/18 08:00 Pulse Rate 60 03/06/18 08:00 Respiratory Rate 16 03/06/18 08:00 Blood Pressure 119/65 03/06/18 08:00 Pulse Oximetry 100 03/06/18 08:00 Height/Weight/BMI: Height 1.8 m Weight 79.5 kg Body Mass Index 23.1 - Constitutional Present: no acute distress, well nourished, well developed, cooperative - Routine HEENT Exam Eye: Present: EOMI ENT: Present: mucous membranes dry - Routine Neck Exam Present: supple - Routine Respiratory Exam Present: decreased breath sounds, CTA bilaterally. Absent: wheezes - Routine Cardiovascular Exam Present: RRR, S1, S2. Absent: murmur - Routine Abdominal Exam Present: soft, normoactive bowel sounds, non distended. Absent: tenderness - Routine Extremities Exam Present: normal capillary refill - Routine Skin Exam Present: dry, warm - Routine Neurological Exam Present: alert, oriented X3, CN II-XII intact - Routine Psychiatric Exam Present: normal affect Results IRU - Labs Labs: Have reviewed chart data and other providers notes. IRU A/P (1) Debility Current visit: No Status: Acute While the patient continues to have debility he is improving. His strength is improving. Main issue is that of balance and his vertigo episodes. Therapy is directing attention at this area. (2) Vertigo Current visit: No Status: Acute (3) Diabetes mellitus type II, uncontrolled Qualifiers: Diabetes mellitus long term care administrator insulin use: without long term care administrator use Diabetes mellitus complication status: with circulatory complication Diabetes mellitus complication detail: with other circulatory complications Qualified Code(s): E11.59 - Type 2 diabetes mellitus with other circulatory complications; E11.65 - Type 2 diabetes mellitus with hyperglycemia Current visit: No Status: Chronic Insulin is being adjusted. (4) Systolic heart failure Qualifiers: Heart failure chronicity: chronic Qualified Code(s): I50.22 - Chronic systolic (congestive) heart failure Current visit: No Status: Chronic (5) Post-concussion vertigo Current visit: Yes Status: Acute DVT Prophylaxis: Coumadin Resuscitation Status: Do Not Resuscitate - Course Hospital Course: Ulysses Peoples MD: 02/20/18 14:55 Tolerating therapy well. Constipated. Wound care has seen him regarding the abrasions etc. 02/22/18 14:49 Wounds inspected. Stable. Tolerating therapy well. Continues to make progress. 02/23/18 14:20 He is struggling with episodes of vertigo. Easy fatigability with therapy. Nevertheless he is making therapeutic progress with functional activities. Discussed with Dr. Choe and we'll discontinue warfarin. 02/26/18 14:28 Has some apparent confusion over the weekend. He is now on cephalexin for UTI with staph aureus coag negative. Nausea this morning. A bit weaker. Lungs remain clear however. 02/27/18 14:43 Patient states that his nausea and vertigo have resolved for the time being. He feels stronger. Exam is negative. Progressing with therapy. 03/01/18 14:39 Redeveloped nausea and possibly vertigo. Weight up 3 kg for uncertain reasons. Hogan catheter placed. Therapy held and then restarted. 03/02/18 10:36 Again had an episode of vertigo this morning. Seems stable at present. Progress is slow related to his underlying medical conditions. 03/05/18 12:18 Nausea and vertigo improved. However developed vertigo with ambulation. Right-sided weakness appears to be resolved except with fatigue. 03/06/18 12:11 In view of his weight gain, will increase Bumex. Reassess lab in a couple of days. Anticipate successful transfer to home on . - Interventions to Obtain Goals PT Treatment Plan: Balance/Proprioception, Functional Activities, Gait Training , Patient/Family Education, Therapeutic Exercise OT Treatment Plan: ADL (Basic Care), Balance Training, IADL, Pt./Family Education, Ther. Exercise for ADL Goals Progress/Modifications: Patient continues to feel bloated and have weight gain. We will reinstitute daily weights as well as increase his Bumex to 1 mg twice daily. Denies any chest pain. Has chronic fatigue. Continues to struggle with episodes of vertigo. Therapy is directing attention at this area. Reassess lab in a couple of days.
[2018-03-06] MEDS: ACETAMINOPHEN 325 MG TABLET PO PRN (17:29)
[2018-03-06] MEDS: DOXEPIN 10 MG CAPSULE PO SCH (20:34)
[2018-03-06] MEDS: ATORVASTATIN 10 MG TABLET PO SCH (20:34)
[2018-03-06] MEDS: Oxycodone *IR* 5 MG TABLET PO PRN (20:35)
[2018-03-06] MEDS: INSULIN ASPART 100unit/ml INJECTION SQ PRN (20:35)
[2018-03-06] MEDS: INSULIN GLARGINE 100unit/ml INJECTION SQ SCH (20:36)
[2018-03-07] MEDS: OMEPRAZOLE 20 MG CAPSULE PO SCH (05:43)
[2018-03-07] MEDS: CALCIUM 600 + VIT D 400 TABLET PO SCH (08:47)
[2018-03-07] MEDS: FOLIC ACID 1 MG TABLET PO SCH (08:47)
[2018-03-07] MEDS: INSULIN ASPART 100unit/ml INJECTION SQ SCH ×3 (08:47→17:46)
[2018-03-07] MEDS: CARVEDILOL 25 MG TABLET PO SCH ×2 (08:48→17:46)
[2018-03-07] MEDS: FEBUXOSTAT 40 MG TABLET PO SCH (08:48)
[2018-03-07] MEDS: ASPIRIN 81 MG CHEWABLE TABLET PO SCH (08:48)
[2018-03-07] MEDS: BUMETANIDE 0.5 MG TABLET PO SCH ×2 (08:48→15:03)
[2018-03-07] MEDS: PredniSONE 5 MG TABLET PO SCH (08:48)
[2018-03-07] MEDS: MECLIZINE 12.5 MG TABLET PO SCH ×3 (08:48→20:09)
[2018-03-07] MEDS: DOCUSATE SODIUM 100 MG CAPSULE PO SCH (08:48)
[2018-03-07] MEDS: SITAGLIPTIN 100 MG TABLET PO SCH (08:48)
[2018-03-07] MEDS: FERROUS SULFATE 324 MG TABLET PO SCH (08:48)
[2018-03-07] MEDS: POLYETHYL GLYCOL 3350 17gm PACKET PO SCH (08:49)
[2018-03-07] MEDS: INSULIN ASPART 100unit/ml INJECTION SQ PRN ×2 (12:16→20:08)
[2018-03-07] MEDS: ACETAMINOPHEN 325 MG TABLET PO PRN (19:53)
[2018-03-07] MEDS: INSULIN GLARGINE 100unit/ml INJECTION SQ SCH (20:08)
[2018-03-07] MEDS: ATORVASTATIN 10 MG TABLET PO SCH (20:09)
[2018-03-07] MEDS: DOXEPIN 10 MG CAPSULE PO SCH (20:09)
[2018-03-07] MEDS: Oxycodone *IR* 5 MG TABLET PO PRN (20:40)
[2018-03-08] MEDS: ACETAMINOPHEN 325 MG TABLET PO PRN (02:51)
[2018-03-08] MEDS: OMEPRAZOLE 20 MG CAPSULE PO SCH (06:26)
[2018-03-08 08:06] VITALS: BP 115/65; PULSE 92; TEMP 97.8; O2SAT 98
[2018-03-08] MEDS: INSULIN ASPART 100unit/ml INJECTION SQ SCH ×2 (08:32→12:23)
[2018-03-08] MEDS: SITAGLIPTIN 100 MG TABLET PO SCH (08:34)
[2018-03-08] MEDS: POLYETHYL GLYCOL 3350 17gm PACKET PO SCH (08:34)
[2018-03-08] MEDS: FERROUS SULFATE 324 MG TABLET PO SCH (08:36)
[2018-03-08] MEDS: DOCUSATE SODIUM 100 MG CAPSULE PO SCH (08:36)
[2018-03-08] MEDS: BUMETANIDE 0.5 MG TABLET PO SCH (08:36)
[2018-03-08] MEDS: ASPIRIN 81 MG CHEWABLE TABLET PO SCH (08:36)
[2018-03-08] MEDS: CALCIUM 600 + VIT D 400 TABLET PO SCH (08:36)
[2018-03-08] MEDS: CARVEDILOL 25 MG TABLET PO SCH (08:36)
[2018-03-08] MEDS: MECLIZINE 12.5 MG TABLET PO SCH (08:36)
[2018-03-08] MEDS: FEBUXOSTAT 40 MG TABLET PO SCH (08:36)
[2018-03-08] MEDS: PredniSONE 5 MG TABLET PO SCH (08:36)
--- NOTE | 2018-03-08 11:37 | IRU Progress Note ---
- Subjective/Serverity of Illness Date: 03/08/18 Venancio is interviewed and examined on the inpatient rehabilitation. He states that his dizziness has resolved. However, I imagine it will recur from time to time because we believe this is related to previous head trauma. Nevertheless he does have exercises to do in this regard. Does have some easy fatigability which is not new. He denies any nausea. He is anxious to get back to his home. He denies actual dyspnea and denies chest pain. Exam Vital Signs: Temperature 97.8 F 03/08/18 08:00 Pulse Rate 92 03/08/18 08:00 Respiratory Rate 16 03/08/18 08:00 Blood Pressure 115/65 03/08/18 08:00 Pulse Oximetry 98 03/08/18 08:00 Height/Weight/BMI: Height 1.8 m Weight 81.5 kg Body Mass Index 23.1 - Constitutional Present: no acute distress, well nourished, well developed, cooperative Comments: fatigued - Routine HEENT Exam Eye: Present: EOMI ENT: Present: mucous membranes moist, oropharynx clear - Routine Neck Exam Present: supple - Routine Respiratory Exam Present: decreased breath sounds, CTA bilaterally. Absent: wheezes - Routine Cardiovascular Exam Present: RRR, S1, S2, murmur - Routine Abdominal Exam Present: soft, normoactive bowel sounds, non distended. Absent: tenderness - Routine Extremities Exam Present: no edema - Routine Skin Exam Present: dry, warm, wounds (inspected his 3 dressed wounds (left anterior medina, right knee, left ulnar wrist area). Each of these are clean and dry and are more consistent with abrasions at present.) - Routine Neurological Exam Present: alert, oriented X3, CN II-XII intact - Routine Psychiatric Exam Present: normal affect IRU A/P (1) Debility Current visit: No Status: Acute Patient has improved with therapy and states that he feels confident going home. I again reminded him to move slowly and to use his walker and to not be walking if he feels dizzy. These episodes of dizziness appear to be fairly transient but are recurrent. I would hope that these would continue to resolve with time since they're likely due to previous head trauma. (2) Vertigo Current visit: No Status: Acute (3) Diabetes mellitus type II, uncontrolled Qualifiers: Diabetes mellitus termite technician insulin use: without termite technician use Diabetes mellitus complication status: with circulatory complication Diabetes mellitus complication detail: with other circulatory complications Qualified Code(s): E11.59 - Type 2 diabetes mellitus with other circulatory complications; E11.65 - Type 2 diabetes mellitus with hyperglycemia Current visit: No Status: Chronic (4) Systolic heart failure Qualifiers: Heart failure chronicity: chronic Qualified Code(s): I50.22 - Chronic systolic (congestive) heart failure Current visit: No Status: Chronic (5) Post-concussion vertigo Current visit: Yes Status: Acute DVT Prophylaxis: Coumadin Resuscitation Status: Do Not Resuscitate - Course Hospital Course: Ulysses Peoples MD: 02/20/18 14:55 Tolerating therapy well. Constipated. Wound care has seen him regarding the abrasions etc. 02/22/18 14:49 Wounds inspected. Stable. Tolerating therapy well. Continues to make progress. 02/23/18 14:20 He is struggling with episodes of vertigo. Easy fatigability with therapy. Nevertheless he is making therapeutic progress with functional activities. Discussed with Dr. Choe and we'll discontinue warfarin. 02/26/18 14:28 Has some apparent confusion over the weekend. He is now on cephalexin for UTI with staph aureus coag negative. Nausea this morning. A bit weaker. Lungs remain clear however. 02/27/18 14:43 Patient states that his nausea and vertigo have resolved for the time being. He feels stronger. Exam is negative. Progressing with therapy. 03/01/18 14:39 Redeveloped nausea and possibly vertigo. Weight up 3 kg for uncertain reasons. Hogan catheter placed. Therapy held and then restarted. 03/02/18 10:36 Again had an episode of vertigo this morning. Seems stable at present. Progress is slow related to his underlying medical conditions. 03/05/18 12:18 Nausea and vertigo improved. However developed vertigo with ambulation. Right-sided weakness appears to be resolved except with fatigue. 03/06/18 12:11 In view of his weight gain, will increase Bumex. Reassess lab in a couple of days. Anticipate successful transfer to home on . 03/08/18 11:37 Patient is stable for dismissal. - Interventions to Obtain Goals PT Treatment Plan: Balance/Proprioception, Functional Activities, Gait Training , Patient/Family Education, Therapeutic Exercise OT Treatment Plan: ADL (Basic Care), Balance Training, IADL, Pt./Family Education, Ther. Exercise for ADL
[2018-03-08] MEDS: FOLIC ACID 1 MG TABLET PO SCH (12:23)
--- NOTE | 2018-03-08 13:18 | Discharge Summary ---
Discharge Information Date of admission: 02/19/18 15:25 Attending Physician: Ulysses Peoples MD Primary care physician: Panfilo Villa MD Consults: 02/19/18 16:23 Physician Consult [CONS] Routine Consulting Provider: Leila Monge Reason For Exam: Medical management Ordering Provider has Notified Mental Health Director: Hawa 02/19/18 17:16 Wound [facility]in Clinic Consult [CONS] Routine Reason for consultation: multiple abrasions; alonzo note left lower extremity wound 03/05/18 14:27 Dietary Consult [CONS] Routine Comment: Reason For Exam: DM: Instruct in consistent carb diet, low salt - Discharge Diagnosis (1) Debility Status: Acute (2) Vertigo Status: Acute (3) Diabetes mellitus type II, uncontrolled Status: Chronic (4) Systolic heart failure Status: Chronic (5) Post-concussion vertigo Status: Acute 1. Generalized debilitation 2. Post concussive vertigo 3. Diabetes mellitus, not controlled, currently on insulin 4. Chronic systolic heart failure with ejection fraction 10% 5. Transient ischemic attack 6. Atrial fibrillation, chronic 7. Acute on chronic kidney disease (acute kidney injury) - Laboratory Labs: 03/08/18 04:42 03/08/18 04:42 - Microbiology Microbiology 02/24/18 11:40 Urine, Voided (Cc/notcc) Urine Culture - Final Coag negative Staphylococcus 02/20/18 21:37 Urine, Voided (Cc/notcc) Urine Culture - Final Coag negative Staphylococcus History of Present Illness HPI: Mr. Angel is a very pleasant 87-year-old male with a complicated recent history. He recently had undergone new lead placement as well as generator change for his AICD on 01/10/[address] Choe. He has a history of myocardial infarction and stent placement number of years ago along with congestive cardiomyopathy/systolic heart failure with reported ejection fraction around 10% . Most recently he was in his independent apartment at home on 02/13/2018 when he fell because his right knee "gave out." He fell to the floor and was brought to the emergency department for evaluation. He had apparently hit his head. He did complain of vertigo, shortness of breath and tightness in his forehead. He was admitted to [facility]. Radiographs of the knee and hip were unremarkable. CT head showed no acute findings. However AICD interrogation showed the possibility of his right ventricular lead and atrial lead possibly nonfunctioning. For this reason he was transferred to [facility] to be seen by Dr. Choe. Evaluation at that location indicated no major changes from previous evaluation. He continued to have vertigo. He sustained multiple functional deficits because of the fall and debilitation. In addition his creatinine was 3.2 with prior creatinines around 2.6. He has history of diabetes mellitus. Patient was transferred back to [facility] to acute inpatient rehabilitation on 02/19/2018 for a comprehensive approach to his recovery. Hospital Course This is a general summary of the patient's hospital course. For more details refer to the complete medical record. Mr. Angel had been stabilized on acute care at [facility] and then transferred to acute inpatient rehabilitation. He was followed by the hospitalist service as well as Dr. Peoples. From a medical standpoint we monitored his diabetes and adjusted his insulin. In addition his heart failure was monitored and his Bumex was adjusted. He will be going home on 0.5 mg Bumex twice daily. His final insulin dose is NovoLog 2 units with breakfast, 4 units with lunch and 6 units with evening meal plus Lantus 15 units at at bedtime daily. He will also remain on Januvia 25 mg daily by mouth. His blood sugars remained somewhat elevated and will need to be monitored as an outpatient. Patient developed symptoms of bloating and there was concern about urinary retention. A catheter was placed. However only 200 mL was obtained so he likely did not have urinary retention. His weight continued to increase while on acute inpatient rehabilitation. His Bumex initially was 0.5 mg twice daily increasing to 1 mg twice daily. Liver ultrasound was obtained on 03/01/2018 demonstrating a small amount of ascites. The additional Bumex did not seem to mobilize fluids adequately. We left him on 0.5 mg twice daily as recommended previously by Dr. Choe. The patient developed symptoms of right arm and right leg weakness on or about 03/02/2018. For this reason a head CT scan was obtained failing to reveal any new findings. Symptoms resolved but likely he did have a TIA at that time. It was recommended by his admitting counselor (Dr. Choe) previously that we discontinue the warfarin which was discontinued earlier in the hospitalization. He was continued on aspirin. He had no other symptoms of TIA subsequently. Dr. Choe felt as though he was a high fall risk with possible head injury and thus was not a candidate for full anticoagulation at present. He continued to experience episodes of vertigo. Specific attention was directed at his labyrinthine system by the physical therapist. He was treated with meclizine of which was of some benefit. He reports that his vertigo has resolved although it is likely or recur off and on. It seems to be fairly transient. It is attributed to his head injury as it did not occur prior to that. The following levels of functional competence are to be considered preliminary information. The reader is encouraged to refer to actual therapy notes and reports for specific details. The patient was followed by physical therapy while on acute inpatient rehabilitation. At the conclusion of his stay, the following functional competencies were identified: He is able to transfer with either standby assist or modified independent level. Car transfers are with standby assistance. He is able to ambulate at least 80 feet with contact guard assistance with a 4 wheeled walker. The patient was followed by occupational therapy while on acute inpatient rehabilitation. At the conclusion of his stay, the following functional competencies were identified: He is able to perform bathing, upper and lower body dressing and toileting with independent to modified independent level. He made remarkable improvement with regard to his functional activities. He remains a fall risk. He will continue to be followed by home health physical therapy. In addition, he does have 3 wounds previously obtained prior to this admission. These include the left medina, right knee and left wrist area. Each of these were inspected on the day of dismissal and are resolving nicely. They are abrasions. No evidence of infection. Recommendations are to cleanse these and change dressings every 3 days. I did give him a prescription for oxycodone IR 5 mg #30 at the time of dismissal. He is using these once or twice daily. Follow-up will be with Dr. Villa and Dr. Crane. Hospital course: 02/20/18 Agree with IRU orders per Dr. Peoples. Hx of dysphagia - may consider consulting speech therapy. DC Lovenox; no noted history of VTE and with hx of recent falls, anticoagulating with Coumadin and Lovenox has greater risk than benefit. Pharmacy consulted for Coumadin dosing. INR subtherapeutic on admit. Monitor renal function - baseline creatinine ranges 2.5-3.0 and was higher just recently while hospitalized in [place]. Wound RN has seen the patient and applied Mepilex (1 with Aquacel and 2 with Xeroform) dressings to the abrasions on his legs. Continue Januvia, Lantus HS for DM. Monitor sugars. High risk for CHF exacerbation and RODRIGUE. 02/23/18 Vertigo - cont meclizine; trial scopolamine patch and monitor for side effects. Slightly increasing BUN/creatinine - cont Bumex for now, recheck in am - may need to hold bumex/K Dr. Peoples to discuss anticoag recommendations with Dr. Choe Hyperglycemia - increase Lantus to 7U, cont SSI. 02/24/18 Encephalopathy - suspect secondary to scopolamine patch, which was dc'd. Will hold meclizine and melatonin as well. Consider holding PPI. No trauma or focal neuro deficits to suggest immediate need for CT head. Discussed with Dr Jansen-will have Haldol available prn agitation/ hallucinations. Urinary retention - will straight cath and send for UA; urinary retention could also be a side effect from meds. Continue bladder scan. UA showing evidence for infection - will start cephalexin and check urine C/ S. Hold KCl, K increased to 5.0. Cont Bumex; renal function relatively stable. Granddaughter reports creatinine baseline = 2.8. Coumadin dc'd after Dr. Peoples discussed case with Dr. Choe. 02/25/18 Continue cephalexin for UTI. Mental status has improved. He is more steady on his feet. Prelim UC gram + cocci. BS's reviewed - w/ exception of FBS of 80 this am, most sugars >200 and is receiving between 1-5 U SSI. Increase Lantus from 7 to 10U at hs and add Novolog 2 U ac bkfast and 4 U ac lunch and supper. Labs in am to follow blood count, renal function and electrolytes. Potassium currently on hold d/t hyperkalemia. Continues on Bumex. Vitals stable. 02/28 Overall, patient is doing well and making good gains. Continue therapies per Dr. Peoples. Based on urine sensitivities, will change from Keflex to Doxycycline for coverage of urinary Coag negative staphylococcus. Blood sugars remain elevated, though improved. Will increase lantus from 10 units to 12 units QHS. Meal insulin dosages may need adjustments as well. Will continue to monitor closely. Labs in am to follow blood count, renal function and electrolytes. Potassium remains on hold due to recent hyperkalemia. Continues on Bumex. Vitals stable. Time spent with patient: greater than 35 minutes Resuscitation Status: Do Not Resuscitate Discharge Plan - Med Rec/Dispo Referrals/Follow Up: Panfilo Villa MD [Primary Care Provider] - 1 Week (Dr Checo Villa on 03/09/18 at 11:30 am for Hosp. follow-up. [facility] [address] [address]) Gisela Choe MD [Physician] - 1 Week (Call to schedule an appointment within the next 1-[address] Choe's request, your coumadin and amiodarone were discontinued during your hospitalization. Bumex was increased back to original home dose of 0.5mg twice a day.) Prescriptions: New Bisacodyl Supp [Dulcolax] 10 mg RECTALLY DAILY PRN suppositor PRN Reason: Constipation Insulin Aspart [NovoLOG] 6 unit SQ ACS #5 vial Insulin Aspart [NovoLOG] 2 unit SQ ACB #5 vial Insulin Glargine,Hum.rec.anlog [Lantus] 15 unit SQ HS #5 vial Meclizine [Antivert] 12.5 mg PO TID #90 tab PEG 3350 17gm PACKET [Miralax] 17 gm PO DAILY packet Aspirin Chewable [ASA] 81 mg PO DAILY tab.chew Insulin Aspart [NovoLOG] 4 unit SQ ACL #5 vial Continue Calcium Carb/Vit D3/Minerals [Calcium 600+D Plus Minerals Tb] 1 each PO DAILY Acetaminophen 650 mg PO Q4HR PRN PRN Reason: Pain Docusate Sodium [Colace] 1 cap PO DAILY Folic Acid 0.8 mg PO DAILY Febuxostat [Uloric] 40 mg PO DAILY Sitagliptin [Januvia] 25 mg PO DAILY tab Blood Sugar Diagnostic [Glucose Test Strip] 1 each MC BID #60 strip Atorvastatin [Lipitor] 1 tab PO HS #30 tab Ferrous Sulfate [Iron] 325 mg PO DAILY Melatonin/Pyridoxine HCl (B6) [Melatonin 3 mg Tablet] 3 mg PO HS guaiFENesin [Mucinex] 600 mg PO BID PRN PRN Reason: Congestion Sennosides [Ex-Lax Maximum Strength] 25 mg PO DAILY PRN PRN Reason: Constipation Potassium Chloride [MICRO-K 10 mEq Capsule] 10 meq PO DAILY Carvedilol [Coreg] 1 tab PO BIDWM Bumetanide Tab [Bumex 0.5 mg Tab] 0.5 mg PO BID Oxycodone HCl 5 mg PO Q6HR PRN #30 cap PRN Reason: Pain Omeprazole [Prilosec] 20 mg PO DAILY Doxepin [Sinequan] 10 mg PO HS PredniSONE [Deltasone 5 mg] 5 mg PO WB Discontinued Amiodarone [Pacerone] 200 mg PO BID Insulin Glargine,Hum.rec.anlog [Lantus Solostar] 6 unit SQ HS #1 insuln.pen Meclizine [Antivert] 1 tab PO TID - Disposition 01 Discharged Home, Self-Care - Dismissal Complete Discharge Instructions are:: Complete
--- NOTE | 2018-03-08 13:29 | Letter to Referring Physician ---
Dear Dr. Villa, This is a brief note to bring you up-to-date on the status of Venancio Angel and his stay on the acute inpatient rehabilitation unit at [facility]. As you are likely aware, this patient was admitted to [facility] after a fall at his home. There was concern about pacemaker/AICD lead malfunction and he was then sent to [facility] for evaluation by Dr. Choe. He was felt to be unchanged at that location. The patient was stabilized while on the acute level and admitted to inpatient rehabilitation unit at [facility] on February 19, 2018. While on inpatient rehabilitation, this patient was seen by occupational therapy and physical therapy and improved overall in their functional ability. We also monitored and managed the patient's heart failure while on Acute Rehab. Please see a copy of the history and physical examination as well as discharge summary faxed separately for further details. Please note that Dr. Choe has recommended that the patient not take warfarin at this point due to his high fall risk. He had frequent episodes of vertigo after admission which we would attributed to post concussive reasons. This improved by the time of dismissal. He is dismissed to his independent apartment today on 03/08/2018 to be followed by home health for physical therapy and medical monitoring of his heart failure and vertigo. Thank you for allowing us to be involved in this nice patient's care. Please contact me directly should you have any questions regarding their stay on the inpatient rehabilitation unit. Sincerely, Ulysses Peoples M.D.
== END 2018-03-08 14:10 | DRG 945 ==
PROVIDERS: ADMIT Internal Medicine; ATTEND Internal Medicine

== ENCOUNTER 2018-03-09 11:42 | Observation (INO) ==
--- NOTE | 2018-03-09 12:02 | Emergency Department Report ---
Fall HPI - General Chief Complaint: Fall Stated Complaint: Fell, hit head Time Seen by Provider: 03/09/18 12:02 Source: patient, family Mode of arrival: wheelchair Limitations: no limitations - History of Present Illness HPI Narrative: Patient is a 87-year-old male presents emergency primary for evaluation of bilateral lower extremity swelling, edema, weight gain, fall, multiple lacerations, head laceration. Patient was discharged yesterday from our rehabilitation facility, family states that over his stay in the rehabilitation facility he gained approximately 15 pounds weight in what they believe is water. Patient was discharged home last night, patient did fall again proximally 3 AM. Patient light for an unknown period of time, family found him with multiple skin tears and lacerations to his head it appears to be confused. Patient was brought back to the emergency room for evaluation. - Related Data Home Medications Medication Instructions Recorded Confirmed Omeprazole [Prilosec] 20 mg PO DAILY 11/19/17 03/09/18 Acetaminophen 650 mg PO Q4HR PRN 01/16/18 03/09/18 Calcium Carb/Vit D3/Minerals 1 each PO DAILY 01/16/18 03/09/18 [Calcium 600+D Plus Minerals Tb] Docusate Sodium [Colace] 1 cap PO DAILY 01/16/18 03/09/18 Doxepin [Sinequan] 10 mg PO HS 01/16/18 03/09/18 Febuxostat [Uloric] 40 mg PO DAILY 01/16/18 03/09/18 Folic Acid 0.8 mg PO DAILY 01/16/18 03/09/18 Ferrous Sulfate [Iron] 325 mg PO DAILY 02/12/18 03/09/18 Melatonin/Pyridoxine HCl (B6) 3 mg PO HS 02/12/18 03/09/18 [Melatonin 3 mg Tablet] Bumetanide Tab [Bumex 0.5 mg Tab] 0.5 mg PO BID 02/19/18 03/09/18 Carvedilol [Coreg] 1 tab PO BIDWM 02/19/18 03/09/18 Potassium Chloride [MICRO-K 10 mEq 10 meq PO DAILY 02/19/18 03/09/18 Capsule] PredniSONE [Deltasone 5 mg] 5 mg PO WB 02/19/18 03/09/18 Sennosides [Ex-Lax Maximum 25 mg PO DAILY PRN 02/19/18 03/09/18 Strength] guaiFENesin [Mucinex] 600 mg PO BID PRN 02/19/18 03/09/18 Previous Rx's Medication Instructions Recorded Sitagliptin [Januvia] 25 mg PO DAILY tab 01/25/18 Atorvastatin [Lipitor] 1 tab PO HS #30 tab 01/26/18 Aspirin Chewable [ASA] 81 mg PO DAILY tab.chew 03/07/18 Bisacodyl Supp [Dulcolax] 10 mg RECTALLY DAILY PRN 03/07/18 suppositor Insulin Aspart [NovoLOG] 2 unit SQ ACB #5 vial 03/07/18 Insulin Aspart [NovoLOG] 4 unit SQ ACL #5 vial 03/07/18 Insulin Aspart [NovoLOG] 6 unit SQ ACS #5 vial 03/07/18 Insulin Glargine,Hum.rec.anlog 15 unit SQ HS #5 vial 03/07/18 [Lantus] Meclizine [Antivert] 12.5 mg PO TID #90 tab 03/07/18 PEG 3350 17gm PACKET [Miralax] 17 gm PO DAILY packet 03/07/18 Oxycodone HCl 5 mg PO Q6HR PRN #30 cap 03/08/18 Allergies Allergy/AdvReac Type Severity Reaction Status Date / Time finasteride Allergy Intermediate Rash Verified 02/19/18 16:08 hydromorphone Allergy Unknown combative Verified 02/19/18 16:08 nitrofurantoin Allergy Unknown Nausea and Verified 02/19/18 16:08 Vomiting Poultry Allergy Unknown Unverified 03/08/18 13:40 Review of Systems Constitutional: Reports: weakness. Denies: fever, chills Eyes: Denies: eye pain, eye discharge, vision change ENT: Denies: ear pain, throat pain, dental pain Cardiovascular: Denies: chest pain, palpitations, dyspnea on exertion Respiratory: Denies: cough, dyspnea, wheezes Gastrointestinal: Denies: abdominal pain, nausea, vomiting Genitourinary: Denies: dysuria, frequency Integumentary: Reports: wounds Neurological: Reports: vertigo. Denies: headache, weakness Psychiatric: Denies: anxiety, depression Endocrine: Reports: fatigue Hematological/Lymphatic: Denies: easy bleeding Allergic/Immunologic: Denies: facial swelling PFSH Patient Stated Medical History Cataracts Yes Cardiac Arrhythmia Yes: A-FIB Congestive Heart Failure Yes Hypertension Yes Myocardial Infarction Yes Diabetes Mellitus Type 2 Yes Constipation Yes Gastroesophageal Reflux Yes Disease Other GI hernia repair Hx Incontinence No Hx Renal Disease Yes: STAGE IV Clotting Problems Yes: not on coumadin now Medical History Updates: 1. Systolic heart failure with reported ejection fraction 10%. 2. Benign essential hypertension. 3. Atherosclerotic heart disease status post myocardial infarction. 4. A-fib. 5. Diabetes mellitus type 2 not on usp insulin, with vascular complications of heart disease. 6. GERD. 7. Chronic kidney disease stage IV. 8. Coagulopathy secondary to use of Coumadin. 9. Gout. 10. Prostate cancer Surgical History: 1. Cardiac stent x2 placement after myocardial infarction early 2005. 2. Permanent pacemaker placement 2008, revision and AICD placement 2010, revision and new AICD placement 2016, new AICD and lead placement 2017. 3. AV ablation 2017. 4. Bilateral cataract procedure. 5. Cervical and lumbar spine surgery. 6. Appendectomy. 7. Tonsillectomy. 8. Umbilical hernia repair. 9. Right total shoulder replacement. 10. Left total knee replacement Family History Updates: His father of heart failure at age 55. Mother of scarlet fever at age 31, shortly after giving to Venancio's younger brother. His brother in his 30s of alcoholism. - Social History Smoking status: Former smoker (quit smoking 30 years ago, age 57) Packs-years: 80 Substance use type: does not use Alcohol intake: former (occasional mixed drinks in the past. Last intake 2001) Alcohol intake frequency: former alcohol drinker (used to drink on occasion) Housing: house Household members: none Current occupational status: retired Current residence: [facility] Physical Exam - General General appearance: alert, in no apparent distress - Head Head exam: normocephalic (patient has a 2 cm laceration on right scalp, no active bleeding) - Eye Eye exam: Present: PERRL, EOMI - ENT ENT exam: Present: normal oropharynx, mucous membranes moist, TM's normal bilaterally - Neck Neck exam: Present: full ROM, trachea midline. Absent: tenderness - Chest Chest inspection: Present: symmetric chest wall rise. Absent: tenderness - Respiratory Respiratory exam: Present: normal lung sounds bilaterally. Absent: respiratory distress, wheezes, stridor - Cardiovascular Cardiovascular exam: Present: regular rate, normal rhythm, normal heart sounds - Abdominal Exam Abdominal exam: Present: soft, normal bowel sounds. Absent: distention, tenderness - Back Exam Back exam: Present: full ROM. Absent: tenderness, CVA tenderness (R), CVA tenderness (L), muscle spasm, paraspinal tenderness - Skin Skin exam: Present: warm, dry, other (patient has skin tear on the right forearm left shoulder,) - Neurological Exam Neurological exam: Present: alert, oriented X3 - Psychiatric Psychiatric exam: Present: normal affect, normal mood Procedures - Laceration Laceration 1 Site: scalp Side (If applicable): right Description: linear Depth: simple, single layer Skin layer closed with: other ([place]) Number of sutures: 2 Fall - MDM Narrative Medical decision making narrative: Reviewed chart, patient has had a 5 kg weight gain in the last 10 days. Discussed case with Dr. Erickson, he is concerned that patient might need dialysis due to his poor renal function. Discussed case with Dr. Estevez, stereo equipment salesperson for Dr. Conti, nephrology. Dr. Estevez feels patient needs high-dose diuretics, does not need dialysis at this time. Discuss Dr. Estevez's recommendations with Dr. Erickson he will admit observation status - Medical Records Attestation: I reviewed the patient's medical records. - Lab Data Attestation: I reviewed the patient's lab results. Result diagrams: 03/09/18 12:08 03/09/18 12:08 - Radiology Data Attestation: I reviewed the patient's radiology results. CT scan head: No acute intracranial abnormality CT scan neck: No acute fractures or dislocations Chest x-ray: Stable chest Pelvis x-ray no acute fractures or dislocations Left shoulder: No acute fractures or dislocations noted Disposition Clinical Impression: Fall on same level Qualifiers: Encounter type: initial encounter Qualified Code(s): W18.30XA - Fall on same level, unspecified, initial encounter Scalp laceration Qualifiers: Encounter type: initial encounter Qualified Code(s): S01.01XA - Laceration without foreign body of scalp, initial encounter Fluid overload Qualifiers: Hypervolemia type: other Qualified Code(s): E87.79 - Other fluid overload Disposition: 02 To OBS [facility] [place] Condition: Stable Prescriptions: No Action Calcium Carb/Vit D3/Minerals [Calcium 600+D Plus Minerals Tb] 1 each PO DAILY Acetaminophen 650 mg PO Q4HR PRN PRN Reason: Pain Docusate Sodium [Colace] 1 cap PO DAILY Folic Acid 0.8 mg PO DAILY Febuxostat [Uloric] 40 mg PO DAILY Sitagliptin [Januvia] 25 mg PO DAILY tab Atorvastatin [Lipitor] 1 tab PO HS #30 tab Ferrous Sulfate [Iron] 325 mg PO DAILY Melatonin/Pyridoxine HCl (B6) [Melatonin 3 mg Tablet] 3 mg PO HS guaiFENesin [Mucinex] 600 mg PO BID PRN PRN Reason: Congestion Sennosides [Ex-Lax Maximum Strength] 25 mg PO DAILY PRN PRN Reason: Constipation Potassium Chloride [MICRO-K 10 mEq Capsule] 10 meq PO DAILY Carvedilol [Coreg] 1 tab PO BIDWM Bumetanide Tab [Bumex 0.5 mg Tab] 0.5 mg PO BID Bisacodyl Supp [Dulcolax] 10 mg RECTALLY DAILY PRN suppositor PRN Reason: Constipation Insulin Aspart [NovoLOG] 6 unit SQ ACS #5 vial Insulin Aspart [NovoLOG] 2 unit SQ ACB #5 vial Insulin Glargine,Hum.rec.anlog [Lantus] 15 unit SQ HS #5 vial Meclizine [Antivert] 12.5 mg PO TID #90 tab PEG 3350 17gm PACKET [Miralax] 17 gm PO DAILY packet Oxycodone HCl 5 mg PO Q6HR PRN #30 cap PRN Reason: Pain Omeprazole [Prilosec] 20 mg PO DAILY Doxepin [Sinequan] 10 mg PO HS PredniSONE [Deltasone 5 mg] 5 mg PO WB Aspirin Chewable [ASA] 81 mg PO DAILY tab.chew Insulin Aspart [NovoLOG] 4 unit SQ ACL #5 vial Referrals: Panfilo Villa MD [Primary Care Provider] - Time of Disposition: 14:53 - Seen By: physician
[2018-03-09] MEDS ORDERED: SALINE FLUSH 10ml SYRINGE IVF PRN (12:08)
--- NOTE | 2018-03-09 12:39 | CT Scan Report ---
EXAM: CT head/brain wo con LOCATION OF DICTATION: [place] HISTORY: fall hit head prolonged downtime COMPARISON: No prior studies available for comparison. TECHNIQUE: Axial CT images through the head were performed without contrast. Iterative Reconstruction dose reducing technique was utilized. FINDINGS: The ventricles are of normal size, shape, and contour for the patient's age. There are scattered areas of low attenuation in the white matter which most likely represent changes from chronic microvascular ischemia. The brainstem, cerebellum, and cerebral hemispheres otherwise have a normal morphology and CT attenuation. There is no evidence of midline displacement. No hemorrhage, signs of acute territorial stroke, mass effect, mass lesions, or edema is evident. The visualized portions of the skull base, midface, and calvarium demonstrate no abnormality. The paranasal sinuses are well aerated and free of significant disease. The tympanic and mastoid cavities appear normal. IMPRESSION: 1. No evidence for acute intracranial process or hemorrhage. 2. Mild age-related atrophy and white matter disease likely secondary to chronic small vessel ischemia. .
--- NOTE | 2018-03-09 12:45 | CT Scan Report ---
EXAM: CT cervical spine wo con LOCATION OF DICTATION: [place] HISTORY: fall hit head and neck pain COMPARISON: No prior studies available for comparison. Technique: Axial CT images through the cervical spine were performed without contrast. Coronal and sagittal reformatted images were also obtained. Automated Exposure Control and Iterative Reconstruction dose reducing techniques were utilized. FINDINGS: There is reversal of normal cervical lordosis demonstrated with grade 1 anterolisthesis of C4 on C5. There is significant spondylosis with disc space narrowing, endplate spurring, and facet arthropathy at several levels within the cervical spine. There is associated multilevel neuroforaminal and central spinal stenosis demonstrated at several levels though appears to be worse at the C3-4, and C6-C7 levels.. There is no evidence for acute fracture or traumatic related subluxation.The paraspinal soft tissues and spinal canal appear unremarkable. Moderate calcific atherosclerotic disease of the internal carotid arteries/carotid bulbs. IMPRESSION: 1. Reversal normal cervical lordosis with grade 1 anterolisthesis of C4 on C5. 2. No acute fracture or traumatic related subluxation. 3. Moderate spondylosis throughout the cervical spine. .
--- NOTE | 2018-03-09 12:47 | XRay Report ---
EXAM: XR chest 1V LOCATION OF DICTATION: [place] HISTORY: fall, multiple contusions chest pain COMPARISON: No prior studies available for comparison. FINDINGS: The heart size is mildly enlarged. The mediastinal configuration is within normal limits. Left-sided asymmetric defibrillator leads in place and in stable position. There are no consolidating opacities or pleural effusions. There is no pneumothorax. The osseous structures are within normal limits for the patient's age. IMPRESSION: 1. Mild cardiomegaly. 2. The lungs are clear. .
--- NOTE | 2018-03-09 12:53 | XRay Report ---
EXAM: XR pelvis 1-2V LOCATION OF DICTATION: [place] HISTORY: fall tenderness to palpation anterior pelvis COMPARISON: No prior studies available for comparison. TECHNIQUE: FINDINGS: There is normal alignment of the right and left hip joints without dislocation or subluxation. There are no acute fractures. There is moderate osteoarthrosis of the bilateral hip joints, worse on the left. The ilioischial and iliopectineal lines are intact. The SI joints are well-corticated. There is mild to moderate spondylosis demonstrated within the visualized portions of the lower lumbar spine. Posterior spinal fixation is demonstrated in the lower lumbar spine. There is The surrounding soft tissues are within normal limits. Calcific atherosclerotic disease is noted. IMPRESSION: 1. No evidence for acute fracture. 2. Moderate osteoarthrosis of the hip joints, worse on left. 3. Mild to moderate spondylosis of the lower lumbar spine. .
--- NOTE | 2018-03-09 13:28 | XRay Report ---
EXAM: XR shoulder LT 2-3 views LOCATION OF DICTATION: [place] HISTORY: fall, left shoulder pain COMPARISON: No prior studies available for comparison. FINDINGS: Normal alignment of the glenohumeral and acromioclavicular joints without dislocation or subluxation. There is normal osseous mineralization. There are no acute fractures demonstrated. Calcific tendinitis is suggested. There is mild to moderate osteoarthrosis of the glenohumeral and acromioclavicular joints. The surrounding soft tissues are within normal limits. Left-sided pacemaker in place. IMPRESSION: 1. Calcific tendinitis demonstrated. 2. There is mild to moderate osteoarthrosis of the left shoulder joint. .
[2018-03-09] MEDS ORDERED: FentaNYL 100 MCG/2 ML INJECTION IVP ONE (14:51)
[2018-03-09 16:04] VITALS: BMI 24.7
[2018-03-09] MEDS ORDERED: ACETAMINOPHEN 325 MG TABLET PO PRN (16:04)
--- NOTE | 2018-03-09 16:20 | History & Physical Report ---
History of Present Illness Date: 03/09/18 Chief complaint: Fall HPI: Venancio is a pleasant 87 yr old who was discharged from [facility] unit yesterday . He went home and was doing well last evening, until the middle of the night when he got up and went to the bathroom. He then fell striking his head on the tub. He reports having a loss of conscious. He is unsure which event happened first. He was able to get himself up and ambulate back to his room. Later this morning his daughter called to check on him and he reported his fall. He complained of dizziness at that time as well as scalp laceration. Given this injury he was brought to the ER for further evaluation. Basic labs were obtained. CBC reveals hemoglobin 10.4, platelet count of 99. Electrolytes were normal, BUN is 103 with a creatinine of 3.0. Patient's baseline creatinine 2.5-3.0. CK is slightly elevated at 138, troponin 0.084, proBNP 6060. CT scan of the brain showed no acute intracranial abnormality or hemorrhage. CT cervical spine showed no acute trauma. Left shoulder x-ray shows osteoarthritis, otherwise unremarkable, and pelvic x-ray was also negative for acute fractures. Given patient's head injury company with dizziness as well as increased lower extremity edema. The hospitalist services were contacted and accepted patient for outpatient observation for further evaluation and treatment. Emergency room physician did speak italian lecturer, Dr Estevez- (covering for Dr Conti) whom recommended increased Bumex to 1 milligrams by mouth 3 times a day for more aggressive diuresing. We did discuss advance directives and he does wish to be a do not resuscitate Review of Systems All systems PM: 10-point ROS was reviewed, no additional remarkable complaints except - Cardiovascular Cardiovascular: Present: edema (1+ bilateral lower ext) - Neurological Neurological: Present: dizziness, headache(s) Past Medical History Medical History Updates: 1. Systolic heart failure with reported ejection fraction 10%. 2. Benign essential hypertension. 3. Atherosclerotic heart disease status post myocardial infarction. 4. A-fib. 5. Diabetes mellitus type 2 not on senior care insulin, with vascular complications of heart disease. 6. GERD. 7. Chronic kidney disease stage IV. 8. Coagulopathy secondary to use of Coumadin. 9. Gout. 10. Prostate cancer Surgical History: 1. Cardiac stent x2 placement after myocardial infarction early 2005. 2. Permanent pacemaker placement 2008, revision and AICD placement 2010, revision and new AICD placement 2016, new AICD and lead placement 2017. 3. AV ablation 2017. 4. Bilateral cataract procedure. 5. Cervical and lumbar spine surgery. 6. Appendectomy. 7. Tonsillectomy. 8. Umbilical hernia repair. 9. Right total shoulder replacement. 10. Left total knee replacement Family History: Patient's father of "heart failure" age 55. Mother of scarlet fever age 31. Family History: As Above - Social History Smoking status: Former smoker (quit smoking 30 years ago, age 57) Substance use type: does not use Alcohol intake frequency: does not drink Housing: house Current occupational status: retired Current residence: Independent Living Social history: Patient formerly lived at [facility]. 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 Recently he has moved back to the [facility] and is living in an independent living apartment area. Medications Home Medications Medication Instructions Recorded Confirmed Type Omeprazole [Prilosec] 20 mg PO DAILY 11/19/17 03/09/18 History Acetaminophen 650 mg PO Q4HR PRN 01/16/18 03/09/18 History Calcium Carb/Vit D3/Minerals 1 each PO DAILY 01/16/18 03/09/18 History [Calcium 600+D Plus Minerals Tb] Docusate Sodium [Colace] 1 cap PO DAILY 01/16/18 03/09/18 History Doxepin [Sinequan] 10 mg PO HS 01/16/18 03/09/18 History Febuxostat [Uloric] 40 mg PO DAILY 01/16/18 03/09/18 History Folic Acid 0.8 mg PO DAILY 01/16/18 03/09/18 History Sitagliptin [Januvia] 25 mg PO DAILY tab 01/25/18 03/09/18 Rx Atorvastatin [Lipitor] 1 tab PO HS #30 tab 01/26/18 03/09/18 Rx Ferrous Sulfate [Iron] 325 mg PO DAILY 02/12/18 03/09/18 History Melatonin/Pyridoxine HCl (B6) 3 mg PO HS 02/12/18 03/09/18 History [Melatonin 3 mg Tablet] Bumetanide Tab [Bumex 0.5 mg Tab] 0.5 mg PO BID 02/19/18 03/09/18 History Carvedilol [Coreg] 1 tab PO BIDWM 02/19/18 03/09/18 History Potassium Chloride [MICRO-K 10 mEq 10 meq PO DAILY 02/19/18 03/09/18 History Capsule] PredniSONE [Deltasone 5 mg] 5 mg PO WB 02/19/18 03/09/18 History Sennosides [Ex-Lax Maximum 25 mg PO DAILY PRN 02/19/18 03/09/18 History Strength] guaiFENesin [Mucinex] 600 mg PO BID PRN 02/19/18 03/09/18 History Aspirin Chewable [ASA] 81 mg PO DAILY tab.chew 03/07/18 03/09/18 Rx Bisacodyl Supp [Dulcolax] 10 mg RECTALLY DAILY PRN 03/07/18 03/09/18 Rx suppositor Insulin Aspart [NovoLOG] 2 unit SQ ACB #5 vial 03/07/18 03/09/18 Rx Insulin Aspart [NovoLOG] 4 unit SQ ACL #5 vial 03/07/18 03/09/18 Rx Insulin Aspart [NovoLOG] 6 unit SQ ACS #5 vial 03/07/18 03/09/18 Rx Insulin Glargine,Hum.rec.anlog 15 unit SQ HS #5 vial 03/07/18 03/09/18 Rx [Lantus] Meclizine [Antivert] 12.5 mg PO TID #90 tab 03/07/18 03/09/18 Rx PEG 3350 17gm PACKET [Miralax] 17 gm PO DAILY packet 03/07/18 03/09/18 Rx Oxycodone HCl 5 mg PO Q6HR PRN #30 cap 03/08/18 03/09/18 Rx Allergies Allergy/AdvReac Type Severity Reaction Status Date / Time finasteride Allergy Intermediate Rash Verified 03/09/18 15:56 hydromorphone Allergy Unknown combative Verified 03/09/18 15:56 nitrofurantoin Allergy Unknown Nausea and Verified 03/09/18 15:56 Vomiting Poultry Allergy Unknown Verified 03/09/18 15:56 Exam Vital Signs: Temperature 95.8 F L 03/09/18 15:39 Pulse Rate 61 03/09/18 15:39 Respiratory Rate 14 03/09/18 15:39 Blood Pressure 129/69 03/09/18 15:39 Pulse Oximetry 91 03/09/18 15:39 Height/Weight/BMI: Height 1.8 m Weight 80.4 kg Body Mass Index 24.7 - Constitutional Present: no acute distress, well nourished, well developed - Routine HEENT Exam Eye: Present: EOMI ENT: Present: mucous membranes moist, dentition normal Comments: Scalp urbano - Routine Respiratory Exam Present: CTA bilaterally. Absent: wheezes - Routine Cardiovascular Exam Present: RRR, S1, S2. Absent: murmur - Routine Abdominal Exam Present: soft, normoactive bowel sounds, non distended. Absent: tenderness - Routine Extremities Exam Present: edema (1-2+ BLE), normal capillary refill - Routine Skin Exam Present: intact, dry, warm - Routine Neurological Exam Present: alert, oriented X3, CN II-XII intact, moving all extremities - Routine Psychiatric Exam Present: cooperative Results - Labs CBC & Chem 7: 03/09/18 12:08 03/09/18 12:08 Assessment and Plan (1) Fall Current visit: Yes Status: Acute Assessment and Plan: Impression Fall Scalp Laceration- 2 urbano placed 03/09 Probable concussion Dizziness-acute on chronic Peripheral edema- 1-2+ BLE Systolic heart failure-EF 10% Chronic kidney disease-baseline creatinine 2.5-3.0. Chronic atrial fibrillation. Type II diabetes Plan The patient outpatient observation under the care of Dr. Erickson Will increase diuresing, Bumex 1 mg IV now. Will then continue with Bumex 1 mg by mouth 3 times a day starting at 2100 tonight. His Hogan catheter to monitor accurate output Will have nursing staff place LEISA hose to bilateral lower extremity Monitor patient on cardiac telemetry Nursing staff obtain orthostatic vital signs every 12 hours. Concern for orthostasis. Monitor Accu-Cheks routinely, continue on insulin, NovoLog 2 units with breakfast, 4 units with lunch, 6 units with supper. Lantus 15 units at at bedtime. Will give patient meclizine 12.5 milligrams 3 times a day to help with dizziness. Daughter does report, patient had an adverse effect to scopolamine patch. Monitor head injury, there are 2 urbano placed. 2. Scalp laceration. Today, . This will need to be monitored and removed in 7-10 days. Carefully monitor renal function. Will recheck BMP tomorrow morning. Given increased aggressiveness of diuresing. Patient does wish to be a do not resuscitate and this order is written Discussed with case management regarding potential discharge plan as it does not appear that discharge home independently is a safe option for her given him given readmission in less than 24 hours. We did speak with Marquise Reyes as patient would meet criteria for this new given his recent stay on the IRU unit. We will continue to monitor patient and reevaluate tomorrow. Will discuss further orders and plan of care with attending, Dr. Erickson At time of discharge medical care will return to primary care provider, Dr Panfilo Villa - Physician Narrative Physician: Altaf Erickson MD Narrative: Date: 03/09/18 Time: 1744 I have independently evaluated and examined this patient. I reviewed the chart, the patient's history, and the WIRE FENCE BUILDER/PA's documented findings as above. We discussed and formulated the assessment and plan as above with additions as below: 87 yo male with HFrEF and CKD stage 4 was dismissed from IRU yesterday. Overnight he had a fall after going to the BR. He thinks he lost consciousness. He denies headache at this time. He has had lightheadedness/dizziness since the fall. His legs are more swollen according to his daughter. Daughter says his weight is 154#. Per [facility] records his weight was 75 kg on 02/12 and 80.4 today. His Cr is 3.0. Nephrology recommends increasing bumex. Patient previously had decided he would not want dialysis. He is placed in observation to increase diuresis. Somnolent. CTAB. RRR. s/nt/nd. 1+ edema BLE. dressings to multiples sites on his arms and legs. MEJIA, responds to questions Increase bumex to 1 tid. Hogan placed for output monitoring. Per daughter he has been on fluid restriction in the past ([address] on 1800 ml restriction with low Na diet. If improving he might dismiss to [facility] Reyes soon. Continuing other home meds. Hospital Course Summary Disclaimer: The visit summary below is not to be considered part of the above Progress Note. Hospital Course: Impression Fall Scalp Laceration- 2 urbano placed 03/09 Probable concussion Dizziness-acute on chronic Peripheral edema- 1-2+ BLE Systolic heart failure-EF 10% Chronic kidney disease-baseline creatinine 2.5-3.0. Chronic atrial fibrillation. Type II diabetes Plan The patient outpatient observation under the care of Dr. Erickson Will increase diuresing, Bumex 1 mg IV now. Will then continue with Bumex 1 mg by mouth 3 times a day starting at 2100 tonight. His Hogan catheter to monitor accurate output Will have nursing staff place LEISA hose to bilateral lower extremity Monitor patient on cardiac telemetry Nursing staff obtain orthostatic vital signs every 12 hours. Concern for orthostasis. Monitor Accu-Cheks routinely, continue on insulin, NovoLog 2 units with breakfast, 4 units with lunch, 6 units with supper. Lantus 15 units at at bedtime. Will give patient meclizine 12.5 milligrams 3 times a day to help with dizziness. Daughter does report, patient had an adverse effect to scopolamine patch. Monitor head injury, there are 2 urbano placed. 2. Scalp laceration. Today, . This will need to be monitored and removed in 7-10 days. Carefully monitor renal function. Will recheck BMP tomorrow morning. Given increased aggressiveness of diuresing. Patient does wish to be a do not resuscitate and this order is written Discussed with case management regarding potential discharge plan as it does not appear that discharge home independently is a safe option for her given him given readmission in less than 24 hours. We did speak with Marquise Reyes as patient would meet criteria for this new given his recent stay on the IRU unit. We will continue to monitor patient and reevaluate tomorrow. Will discuss further orders and plan of care with attending, Dr. Erickson At time of discharge medical care will return to primary care provider, Dr Panfilo Villa
[2018-03-09] MEDS: --POM--OMEPRAZOLE 20 MG CAPSULE PO SCH (16:35)
[2018-03-09] MEDS: INSULIN ASPART 100unit/ml INJECTION SQ SCH ×2 (17:56→18:00)
[2018-03-09] MEDS: --POM--CARVEDILOL 25 MG TABLET PO SCH (17:56)
[2018-03-09] MEDS: MECLIZINE 12.5 MG TABLET PO SCH (20:54)
[2018-03-09] MEDS: --POM--BUMETANIDE 1 MG TABLET PO SCH (20:55)
[2018-03-09] MEDS ORDERED: --POM--ATORVASTATIN 10 MG TABLET PO SCH (21:00)
[2018-03-09] MEDS ORDERED: DOXEPIN 10 MG PO SCH (21:00)
[2018-03-09] MEDS ORDERED: MELATONIN PO SCH (21:00)
[2018-03-09] MEDS ORDERED: MELATONIN 3 MG PO SCH (21:00)
[2018-03-09] MEDS ORDERED: PYRIDOXINE HCL PO SCH (21:00)
[2018-03-09] MEDS ORDERED: INSULIN GLARGINE 100unit/ml INJECTION SQ SCH (21:00)
[2018-03-09] MEDS ORDERED: [UNRECOGNIZED DRUG - OTHER] PO SCH (21:00)
[2018-03-09 23:59] VITALS: PULSE 60; O2SAT 96
[2018-03-10] MEDS ORDERED: MORPHINE SULFATE 2mg INJECTION IVP PRN (03:08)
[2018-03-10] MEDS ORDERED: HYDROCODONE/APAP 5mg/325mg TABLET PO ONE (05:57)
[2018-03-10 07:39] VITALS: BP 104/62; RESP 20; TEMP 96.6
[2018-03-10] MEDS ORDERED: INSULIN ASPART 100unit/ml INJECTION SQ SCH (07:45)
[2018-03-10] MEDS ORDERED: FERROUS SULFATE 325 MG PO SCH (08:00)
[2018-03-10] MEDS ORDERED: PredniSONE 5 MG TABLET PO SCH (08:00)
[2018-03-10] MEDS: --POM--OMEPRAZOLE 20 MG CAPSULE PO SCH (08:26)
[2018-03-10] MEDS ORDERED: POLYETHYL GLYCOL 3350 17gm PACKET PO SCH (09:00)
[2018-03-10] MEDS ORDERED: NON-FORMULARY MEDICATION 1 EACH EACH (Ferrous Sulfate [Iron] 325 MG) PO SCH (09:00)
[2018-03-10] MEDS ORDERED: ASPIRIN 81 MG CHEWABLE TABLET PO SCH (09:00)
[2018-03-10] MEDS ORDERED: SITAGLIPTIN 100 MG PO SCH (09:00)
[2018-03-10] MEDS ORDERED: DOCUSATE SODIUM 100 MG CAPSULE PO SCH (09:00)
[2018-03-10] MEDS: --POM--CARVEDILOL 25 MG TABLET PO SCH (10:35)
[2018-03-10] MEDS: --POM--BUMETANIDE 1 MG TABLET PO SCH (10:35)
[2018-03-10] MEDS: MECLIZINE 12.5 MG TABLET PO SCH (10:35)
--- NOTE | 2018-03-10 12:19 | Extended Care Facility Orders ---
Admission Orders Admit to:: [facility] Allergies/Adverse Reactions: Allergies finasteride Allergy (Intermediate, Verified 03/09/18 15:56) Rash hydromorphone Allergy (Unknown, Verified 03/09/18 15:56) combative nitrofurantoin Allergy (Unknown, Verified 03/09/18 15:56) Nausea and Vomiting Poultry Allergy (Unknown, Verified 03/09/18 15:56) Admitting Diagnosis: Fluid overload Admitting Physician: Altaf Erickson IV, MD Attending Physician: Altaf Erickson IV, MD Anticiapted Length of Stay: 30 days or less Rehab Potential: good Rehab Prognosis: good Diet: 03/09/18 Dinner Consistent Carbohydrate Diet [DIET] Calorie Level: 2000 Sodium Restriction: 2GRAM Fluid Restriction: FR 1800ML May use Facility Protocol or Standing Orders: Yes May have flu vaccine: Yes Evaluations/Treatment: PT, OT [facility] Certification: I certify that SNF services are required to be given on an Inpatient basis because of the patients need for [facility] care on a continuing basis for the condition(s) for which he/she received inpatient hospital services prior to his/her transfer to the SNF. SNF inpatient care is necessary for the following reasons - Additional Information In Event of Arrest: Do Not Start CPR Referrals: Jonh Morin MD [Physician] -
--- NOTE | 2018-03-10 12:29 | Discharge Summary ---
Discharge Information Date of admission: 03/09/18 14:52 Anticipated date of discharge: 03/10/18 Attending Physician: Altaf Erickson IV, MD Primary care physician: Panfilo Villa MD Consults: none - Discharge Diagnosis (1) Fall Status: Acute Fall Scalp Laceration- 2 urbano placed 03/09 Probable concussion Dizziness-acute on chronic Peripheral edema- 1-2+ BLE Systolic heart failure-EF 10% Chronic kidney disease-baseline creatinine 2.5-3.0. Chronic atrial fibrillation. Type II diabetes - Procedures Procedures: none - Laboratory Labs: Laboratory Last Values WBC 7.5 T/MM3 (4.5-11.0) 03/09/18 12:08 RBC 3.34 M/MM3 (4.50-5.90) L 03/09/18 12:08 Hgb 10.4 GM/DL (13.5-17.5) L 03/09/18 12:08 Hct 33.1 % (41-53) L 03/09/18 12:08 MCV 99.1 UM3 (80-100) 03/09/18 12:08 MCH 31.1 UUG (26-34) 03/09/18 12:08 MCHC 31.4 GM/DL (31-37) 03/09/18 12:08 RDW Std Deviation 59.6 FL (36.9-50.2) H 03/09/18 12:08 Plt Count 99 T/MM3 (130-400) L 03/09/18 12:08 MPV 10.9 UM3 (9.4-12.4) 03/09/18 12:08 Immature Gran % (Auto) 0.3 % (0.0-0.5) 03/09/18 12:08 Neut % (Auto) 71.1 % (33-66) H 03/09/18 12:08 Lymph % (Auto) 15.9 % (23-45) L 03/09/18 12:08 Sunflower % (Auto) 10.8 % (0-9.0) H 03/09/18 12:08 Eos % (Auto) 1.5 % (0-4) 03/09/18 12:08 Baso % (Auto) 0.4 % (0-2) 03/09/18 12:08 Neut # (Auto) 5.3 T/MM3 (1.8-7.7) 03/09/18 12:08 Lymph # (Auto) 1.2 T/MM3 (1-4.8) 03/09/18 12:08 Sunflower # (Auto) 0.8 T/MM3 (0-0.8) 03/09/18 12:08 Eos # (Auto) 0.1 T/MM3 (0-0.5) 03/09/18 12:08 Baso # (Auto) 0.0 T/MM3 (0-0.2) 03/09/18 12:08 Abs Immat Gran (auto) 0.02 T/MM3 (0.00-0.03) 03/09/18 12:08 INR 1.15 (0.92-1.18) 03/09/18 12:08 Turbidity < 20 (0-20) 03/09/18 12:08 Sodium 143 MEQ/L (136-146) 03/09/18 12:08 Potassium 4.7 MEQ/L (3.6-5) 03/09/18 12:08 Chloride 102 MEQ/L (98-107) 03/09/18 12:08 Carbon Dioxide 28 MEQ/L (22-30) 03/09/18 12:08 Anion Gap 13 meq/L (5-15) 03/09/18 12:08 BUN 103.0 MG/DL (9-20) H* 03/09/18 12:08 Creatinine 3.0 mg/dL (0.8-1.5) H D 03/09/18 12:08 GFR Calculation 20 03/09/18 12:08 BUN/Creatinine Ratio 34 RATIO (6-26) H 03/09/18 12:08 Glucose 130 MG/DL (75-110) H 03/09/18 12:08 Glucometer 122 mg/dL (65-110) 03/10/18 06:17 Calculated Osmolality 309 MOSM/KG (261-280) H 03/09/18 12:08 Calcium 9.4 MG/DL (8.4-10.2) 03/09/18 12:08 Total Bilirubin 1.20 MG/DL (0.20-1.30) 03/09/18 12:08 Icterus Index < 2 (0-7) 03/09/18 12:08 AST 35 U/L (17-59) 03/09/18 12:08 ALT 25 U/L (1-50) 03/09/18 12:08 Alkaline Phosphatase 138 U/L (38-126) H 03/09/18 12:08 Total Creatine Kinase 77 U/L (55-170) 03/09/18 12:08 Troponin I 0.084 ng/ml (0-0.12) 03/09/18 12:08 NT-Pro-B Natriuret Pep 6060 pg/mL (0-175) H 03/09/18 12:08 Total Protein 6.8 g/dL (6.3-8.2) 03/09/18 12:08 Albumin 4.0 g/dL (3.5-5.0) 03/09/18 12:08 Globulin 2.8 G/DL (2.4-3.6) 03/09/18 12:08 Albumin/Globulin Ratio 1.4 RATIO (1.1-2.2) 03/09/18 12:08 Specimen Hemolysis < 15 (0-25) 03/09/18 12:08 - Microbiology None - Radiology Radiology: 03/09/18-CT head-no intracranial abnormality or hemorrhage - Pathology N/A History of Present Illness HPI: Venancio is a pleasant 87 yr old who was discharged from [facility] yesterday . He went home and was doing well last evening, until the middle of the night when he got up and went to the bathroom. He then fell striking his head on the tub. He reports having a loss of conscious. He is unsure which event happened first. He was able to get himself up and ambulate back to his room. Later this morning his daughter called to check on him and he reported his fall. He complained of dizziness at that time as well as scalp laceration. Given this injury he was brought to the ER for further evaluation. Basic labs were obtained. CBC reveals hemoglobin 10.4, platelet count of 99. Electrolytes were normal, BUN is 103 with a creatinine of 3.0. Patient's baseline creatinine 2.5-3.0. CK is slightly elevated at 138, troponin 0.084, proBNP 6060. CT scan of the brain showed no acute intracranial abnormality or hemorrhage. CT cervical spine showed no acute trauma. Left shoulder x-ray shows osteoarthritis, otherwise unremarkable, and pelvic x-ray was also negative for acute fractures. Given patient's head injury company with dizziness as well as increased lower extremity edema. The hospitalist services were contacted and accepted patient for outpatient observation for further evaluation and treatment. Emergency room physician did speak jet dyeing machine operator, Dr Estevez- (covering for Dr Conti) whom recommended increased Bumex to 1 milligrams by mouth 3 times a day for more aggressive diuresing. We did discuss advance directives and he does wish to be a do not resuscitate Objective Vital signs: Temperature 96.6 F L 03/10/18 07:37 Pulse Rate 60 03/10/18 07:37 Respiratory Rate 20 03/10/18 07:37 Blood Pressure 104/62 03/10/18 07:37 Pulse Oximetry 96 03/10/18 07:37 Height/Weight/BMI: Height 1.8 m Weight 80.5 kg Body Mass Index 24.7 - Constitutional Present: no acute distress, well nourished, well developed - Routine HEENT Exam Eye: Present: EOMI ENT: Present: mucous membranes moist, dentition normal - Routine Respiratory Exam Present: CTA bilaterally. Absent: wheezes - Routine Cardiovascular Exam Present: RRR, S1, S2. Absent: murmur - Routine Abdominal Exam Present: soft, normoactive bowel sounds, non distended. Absent: tenderness - Routine Extremities Exam Present: edema (2+bilateral lower ext, LUE- 1 + edema), normal capillary refill - Routine Skin Exam Present: dry, warm - Routine Neurological Exam Present: alert, oriented X3, CN II-XII intact - Routine Lymphatic Exam Lymphatic: Absent: adenopathy - Routine Psychiatric Exam Present: normal affect, cooperative Hospital Course This is a general summary of the patient's hospital course. For more details refer to the complete medical record. Hospital course: Impression Fall Scalp Laceration- 2 urbano placed 03/09 Probable concussion Dizziness-acute on chronic Peripheral edema- 1-2+ BLE Systolic heart failure-EF 10% Chronic kidney disease-baseline creatinine 2.5-3.0. Chronic atrial fibrillation. Type II diabetes 03/09/18- admission The patient outpatient observation under the care of Dr. Erickson Will increase diuresing, Bumex 1 mg IV now. Will then continue with Bumex 1 mg by mouth 3 times a day starting at 2100 tonight. His Hogan catheter to monitor accurate output Will have nursing staff place LEISA hose to bilateral lower extremity Monitor patient on cardiac telemetry Nursing staff obtain orthostatic vital signs every 12 hours. Concern for orthostasis. Monitor Accu-Cheks routinely, continue on insulin, NovoLog 2 units with breakfast, 4 units with lunch, 6 units with supper. Lantus 15 units at at bedtime. Will give patient meclizine 12.5 milligrams 3 times a day to help with dizziness. Daughter does report, patient had an adverse effect to scopolamine patch. Monitor head injury, there are 2 urbano placed. 2. Scalp laceration. Today, . This will need to be monitored and removed in 7-10 days. Carefully monitor renal function. Will recheck BMP tomorrow morning. Given increased aggressiveness of diuresing. Patient does wish to be a do not resuscitate and this order is written Discussed with case management regarding potential discharge plan as it does not appear that discharge home independently is a safe option for her given him given readmission in less than 24 hours. We did speak with [facility] as patient would meet criteria for this new given his recent stay on the IRU unit. We will continue to monitor patient and reevaluate tomorrow. Will discuss further orders and plan of care with attending, Dr. Erickson At time of discharge medical care will return to primary care provider, Dr Panfilo Villa 03/10/18- Discharge Patient is seen and examined multiple times throughout today by myself and Dr Erickson There is numerous family member at that bedside whom are upset as they were called at 3 am and told to "chisholm to the hospital" because patient was "in and out of Asystole". Family indicated that they thought pt was now placed on Comfort care since events happened overnight and they are very upset and feel that they were mis- informed. 25 minutes was spent at the bedside discussing telemetry and clinical exam. Telemetry is reviewed by myself and Dr Erickson. Pt did have episodes of pauses where not noted pacer spikes are present, however, no Asystole. [employer] integration performed, spoke with Pennie- the oncall clinician She reports that both pacer and AICD are on and working without difficulty. Further information discussed with family and Dr Erickson. Family elects to decline labs and go to [facility] as SNU. Phone call to Beatriz JAIN reimbursement consultant for Dr Ronni Morin whom accepted pt for SNU. Reviewed all history with her- Scalp urbano will need to be evaluated and removed in 7-10 days.. Medication changes as recommended yesterday by nephrology, Bumex 1 milligrams 3 times a day 1 week and decreased twice a day. Did explain that patient's baseline creatinine is 2.5-3.0. Do recommend that [employer] come to [facility] to evaluate pacemaker and to discuss with family regarding discontinuing AICD portion. Settings may need to be adjusted at that time. Time spent with patient: discharge greater than 30 minutes Resuscitation Status: Do Not Resuscitate Discharge Plan - Discharge Disposition Discharge Date: 03/10/18 Disposition: 03 To SNU Not [facility] (SNF) *Condition: Stable Reason For Visit (Visit label in EMR): Fluid overload - Discharge Medications *Discharge Medications: New Bumetanide Tab [Bumex 1 mg Tab] 0 mg PO TID tab Continue Calcium Carb/Vit D3/Minerals [Calcium 600+D Plus Minerals Tb] 1 each PO DAILY Acetaminophen 650 mg PO Q4HR PRN PRN Reason: Pain Docusate Sodium [Colace] 1 cap PO DAILY Folic Acid 0.8 mg PO DAILY Febuxostat [Uloric] 40 mg PO DAILY Sitagliptin [Januvia] 25 mg PO DAILY tab Atorvastatin [Lipitor] 1 tab PO HS #30 tab Ferrous Sulfate [Iron] 325 mg PO DAILY Melatonin/Pyridoxine HCl (B6) [Melatonin 3 mg Tablet] 3 mg PO HS guaiFENesin [Mucinex] 600 mg PO BID PRN PRN Reason: Congestion Sennosides [Ex-Lax Maximum Strength] 25 mg PO DAILY PRN PRN Reason: Constipation Potassium Chloride [MICRO-K 10 mEq Capsule] 10 meq PO DAILY Carvedilol [Coreg] 1 tab PO BIDWM Bisacodyl Supp [Dulcolax] 10 mg RECTALLY DAILY PRN suppositor PRN Reason: Constipation Insulin Aspart [NovoLOG] 6 unit SQ ACS #5 vial Insulin Aspart [NovoLOG] 2 unit SQ ACB #5 vial Insulin Glargine,Hum.rec.anlog [Lantus] 15 unit SQ HS #5 vial Meclizine [Antivert] 12.5 mg PO TID #90 tab PEG 3350 17gm PACKET [Miralax] 17 gm PO DAILY packet Oxycodone HCl 5 mg PO Q6HR PRN #15 cap PRN Reason: Pain Omeprazole [Prilosec] 20 mg PO DAILY Doxepin [Sinequan] 10 mg PO HS PredniSONE [Deltasone 5 mg] 5 mg PO WB Aspirin Chewable [ASA] 81 mg PO DAILY tab.chew Insulin Aspart [NovoLOG] 4 unit SQ ACL #5 vial Discontinued Bumetanide Tab [Bumex 0.5 mg Tab] 0.5 mg PO BID - Discharge Packet/Instructions *Diet: ADA Carb Consist diet *Activity: Activity as tolerate *Pain Management/Treatment: Oxycodone as needed *Wound Care: N/A Additional Instructions: Bumex 1 mg TID x1 week- (started 03/09). Then decrease to Bumex 1 mg BID. Baseline Safety Spec= 2.5-3.0 *Expected Signs/Symptoms: Improvement in edema *Notify Physician if: Shortness of breath, Chest pain or other concerning symptoms *During Business Hours Contact: Dr Ronni Morin- at [facility] *After Business Hours Contact: N/A *Pending Lab/Results: No Pending Lab - Referrals/Follow Up *Referrals/Follow Up: Jonh Morin MD [Physician] - - Patient Handouts - Dismissal Complete Discharge Instructions are:: Complete Physician Narrative - Narrative Physician: Altaf Erickson MD Attestation Narrative: Date: 03/10/18 Time: 1819 I have independently evaluated and examined this patient. I reviewed the chart, the patient's history, and the [employer]/PA's documented findings as above. We discussed and formulated the assessment and plan as above with additions as below: Patient says he is OK. He and family upset about communication overnight, and he does not want to be here. He says he does not trust this hospital. No change in status. Lab not done per family request. They prefer transfer to [facility] and lab being done there. [employer] rep did adjust his pacer and turned off his AICD. NAD. CTAB. RRR. s/nt/nd. 1+ edema BLE. dressings to multiples sites on his arms and legs. MEJIA, responds to questions. Had d/w family yesterday that plan was to increase bumex and possibly transfer to [facility]. Given the reluctance to stay here and no significant change in his status, will dismiss to SNU. Recommended f/u with Drs. Conti and Tanner. Addendum entered and electronically signed by Cheri Polo, GABRIELA 03/10/18 15 :55: Prior to patient leaving [facility], [employer] staff, Shakeel lizama come to [facility] and turned off patient's AICD as per familys request. He also made changes to the settings.
[2018-03-10] MEDS: INSULIN ASPART 100unit/ml INJECTION SQ SCH ×2 (13:30→18:31)
[2018-03-10] MEDS ORDERED: MELATONIN 3 MG PO SCH (21:00)
== END 2018-03-10 14:30 ==
LOC: ED 11:42 → EDHOLD 11:42 → MED 15:26
PROVIDERS: ADMIT Hospitalist; ATTEND Hospitalist